=== PATIENT | female | born 1960 | race Caucasian/White ===

== ENCOUNTER 2020-01-12 13:58 | Inpatient (IN) | payer SELFPAY ==
[2020-01-12 14:25] VITALS: O2SAT 98; BMI 25.9
--- NOTE | 2020-01-12 14:39 | ECG_ITS ---
Measurements Intervals [place] Rate: 108 P: 22 CA: 123 QRS: -15 QRSD: 85 T: 49 QT: 336 QTc: 452 SINUS TACHYCARDIA VOLTAGE CRITERIA FOR LVH [MEETS CRITERIA IN ONE OF: R(aVL), S(V1), R(V5), R(V5/V6) POSSIBLE ANTERIOR MYOCARDIAL INFARCTION [30 ms Q WAVE IN V3/V4, OR R < 0.2 mV IN V4], PROBABLY OLD No previous ECG available for comparison Electronically Signed On 01-12-2020 20:50:54 CDT by Sean Anaya M.D. [id number] carmona
[2020-01-12 15:09] LABS: Basophils % 0.5 %; Eosinophils # 0.1 10^3/uL (0.0-0.8); Eosinophils % 1.4 %; Hematocrit 28.4 % (37.0-47.0); Hemoglobin 9.1 g/dL (11.5-15.3); Lymphocytes # 1.6 10^3/uL (0.8-4.8); Mean Corpuscular Hemoglobin 26.6 pg (28.0-34.0); Mean Platelet Volume 10.6 fL (7.4-10.4); Monocytes # 0.4 10^3/uL (0.2-0.9); Monocytes % 5.6 %; Neutrophils # 4.4 10^3/uL (1.8-7.7); Nucleated Red Blood Cells % 0 %; Platelet Count 329 10^3/cmm (130-400); Red Blood Count 3.42 10^6/uL (4.1-5.3); Red Cell Distribution Width 12.2 % (12.1-15.1); White Blood Count 6.5 10^3/uL (4.0-10.0)
[2020-01-12 15:32] LABS: Alanine Aminotransferase 21 U/L (0-33); Albumin Level 4.5 g/dL (3.5-5.2); Alkaline Phosphatase 82 IU/L (35-105); Anion Gap 23.9 (5-19); Aspartate Amino Transferase 21 U/L (0-32); Blood Urea Nitrogen 71 mg/dL (8-23); Calcium 9.5 mg/dL (8.5-10.5); Carbon Dioxide 22 mmol/L (22-29); Chloride 94 mmol/L (98-107); Globulin 3.4 g/dL (1.3-4.6); Glomerular Filtration Rate 4.9 mL/min (90-130); Glucose 255 mg/dL (65-115); Osmolality Calculated 290 mOsm/kg (285-295); Potassium 3.9 mmol/L (3.5-5.1); Sodium 136 mmol/L (136-145); Total Bilirubin 0.2 mg/dL (0.15-1.2); Total Protein 7.9 g/dL (6.6-8.7)
[2020-01-12 15:33] LABS: Troponin(5th) Baseline 18 ng/mL (0-10)
--- NOTE | 2020-01-12 15:42 | ED_ITS ---
Entered by Chyna Ballard, acting as scribe for Christina Shaw Angélica Jan 12, 2020 13:58 HPI - General Adult General: Chief complaint: General Medical Stated complaint: sent by rehan hopson Time Seen by Provider: 01/12/20 15:40 Source: patient Mode of arrival: ambulatory Limitations: no limitations History of Present Illness: HPI narrative: 59 yo Female presents to ED with complaint of abnormal labs. Pt states that she went to see Dr. Her this morning and had labs drawn. Pt states that Dr. Her called her and told her to come in to the ED because her labs were off. Pt states that she has had dizziness recently and had multiple falls. Pt states that she takes Metformin and is a borderline diabetic. Pt states that she is not urinating as much as she normally for a few weeks. Pt states that she has been having CVA tenderness. MD complaint: Abnormal Labs Onset (ago): hour(s) Relieving factors: none Exacerbating factors: none Associated symptoms: Reports other (cva tenderness and decreased urine output); Deny chest pain, confusion, diaphoresis, dyspnea, headache(s), malaise, nausea, rash, palpitations, syncope or vomiting Treatments prior to arrival: none Review of Systems General: Reports: other (negative unless marked) Const: Denies: fever, chills, body aches, fatigue, malaise or diaphoresis Eyes: Denies: change in vision or blurry vision ENMT: Denies: throat pain, painful swallowing, hoarseness, ear pain, ear discharge, Change in hearing or nasal discharge Card: Denies: chest pain, palpitations, irregular heart rhythm, syncope, pre- syncope, shortness of breath on exertion or shortness of breath when lying down Resp: Denies: shortness of breath, productive cough, non-productive cough, wheezing, coughing up blood or chest congestion GI: Denies: abdominal pain, nausea, vomiting, vomiting blood, coffee grounds in vomit, diarrhea, constipation, cramping, blood in stool or black tarry stool : Reports: flank pain and decreased urine ouput; Denies: painful urination, urinary frequency, urinary urgency, urinary inconti nence or blood in urine Musc: Denies: neck pain, back pain, extremity pain, extremity swelling, joint pain, joint swelling, joint warmth or joint stiffness Skin/Breast: Denies: rash, skin tenderness or yellow skin Neuro: Denies: headache, numbness in extremities, weakness in extremities, changes in sensation, lack of coordination, difficulty walking, dizziness, vertigo or confusion Endo: Denies: excessive thirst, tired all the time, cold intolerance, excessive sweating, flushing or hot flashes [place]/Lymph: Denies: easy bruising, easy bleeding, petechiae or enlarged lymph nodes All/Imm: Denies: hives, throat swelling, tongue swelling, facial swelling or acute wheezing PFSH ED PFSH: Medical History Depression Diabetes Diabetic neuropathy HTN (hypertension) Nephrolithiasis Surgical History H/O lithotripsy Family History Mother Leukemia Father CAD (coronary artery disease) Kidney stones Chronic kidney disease (CKD) Social History Smoking and tobacco status: never smoked Alcohol intake: never Substance/Drug Use: never Lives independently: Yes Household members: significant other Marital status: / Current occupational status: retired Physical Exam Const: COMMON NORMALS: no apparent distress, oriented x3, no limitations, healthy appearing and well nourished EXAM LIMITATIONS: no altered mental status GENERAL APPEARANCE: cooperative, well kempt and well developed ORIENTATION/CONSCIOUSNESS: Yes awake HENMT: COMMON NORMALS: normocephalic, head/scalp atraumatic, hearing grossly normal bilaterally, external ears normal, EAC's normal, external nose normal and moist oral mucous membranes HEAD & SCALP: normal to inspection, normocephalic and atraumatic FACE & SINUS: normal facial exam and face symmetric NOSE: external nose normal and nares normal EXTERNAL EAR: Yes external ears normal EXTERNAL AUDITORY CANAL: EAC's normal MOUTH: oral and palatal mucosa normal and tongue normal Eye: COMMON NORMALS: PERRL, EOMs intact bilaterally, conjunctivae normal and n o scleral icterus GENERAL EYE: normal appearance of both eyes and normal light reflex CONJUNCTIVA: Yes conjunctivae normal SCLERA: sclerae normal CORNEA: Yes corneas normal PUPIL: Yes PERRL DIRECT OPHTHALMOSCOPY: Yes normal light reflex Neck/C-Spine: COMMON NORMALS: full ROM, no lymphadenopathy, supple, no meningeal signs and no JVD GENERAL: Yes normal visual inspection and Yes trachea midline CERVICAL SPINE: Yes cervical ROM normal Chest: COMMONS NORMALS: inspection of chest normal and palpation of chest normal Resp: COMMON NORMALS: normal respiratory effort, no retractions, no use of accessory muscles and clear to auscultation bilaterally EFFORT & INSPECTION: Yes able to speak in complete sentences AUSCULTATION: clear to auscultation bilaterally Cardio: COMMON NORMALS: no JVD, regular rate, regular rhythm, S1 normal heart sound, S2 normal heart sound, no gallops, no clicks, no murmurs and no rub JUGULAR VENOUS DISTENTION: no JVD RATE: regular rate RHYTHM: regular rhythm HEART SOUNDS: S1 normal and S2 normal GI: COMMON NORMALS: soft to palpation, non-tender, no hepatosplenomegaly and no masses INSPECTION: Yes normal to inspection PALPATION: Yes soft and Yes no hepatosplenomegaly : COMMON NORMALS: Yes no CVA tenderness BLADDER/KIDNEY EXAM: Yes no CVA tenderness Back/Pelvis: COMMON NORMALS: no CVA tenderness, thoracic and lumbar spine normal to inspection, no thoracic nor lumbar tenderness and thoraco-lumbar ROM normal Extremity: COMMON NORMALS: normal to inspection, full ROM, normal capillary refill, no joint enlargement, no clubbing, cyanosis or edema and no calf tend erness Neuro: COMMON NORMALS: oriented x3, CN's II-XII intact bilaterally, moves all extremities, no focal motor deficits and no sensory deficits noted MENINGEAL SIGNS: Yes no meningeal signs Psych: COMMON NORMALS: mental status grossly normal, thought process normal, cooperative, affect normal, speech normal and activity/motor behavior normal APPEARANCE: Yes well kempt SPEECH: Yes normal speech THOUGHT PROCESS: normal thought process Skin: COMMON NORMALS: no rashes or lesions noted, skin turgor normal, no jaundice, no petechiae and no mottling GENERAL SKIN EXAM: no rashes or lesions noted and turgor normal Course Consultations: Consultation #1: Dr. Evans, Tele-Electronic Pagination System Operator. Message left at 17:00. Dr. Evans called back at 17:06. Time: 17:00 Vital Signs: Vital signs: Vital Signs Pulse Rate 90 01/12/20 19:24 Respiratory Rate 18 01/12/20 19:24 Blood Pressure 125/88 01/12/20 19:24 Pulse Oximetry 98 01/12/20 19:24 MDM - General Adult MDM Narrative: Medical decision making narrative: The case was reviewed with Dr. Tucker, he agrees to admit. We will consult tele-nephrology. Catheter was placed and the patient only 2 cc of urine was obtained. Patient is hemodynamically stable without shortness of breath or edema in her chest. Further care be dictated by Dr. Velez and the hospitalist service as well as the tele-nephrology service. We will place the consult here. Lab Data: Attestation: I reviewed the patient's lab results. Labs: Lab Results 01/12/20 01/12/20 01/12/20 Range/Units 14:56 14:56 14:56 WBC 6.5 (4.0-10.0) 10^3/ uL RBC 3.42 L (4.1-5.3) 10^6/u L Hgb 9.1 L (11.5-15.3) g/dL Hct 28.4 L (37.0-47.0) % MCV 83.0 (81-99) fL MCH 26.6 L (28.0-34.0) pg MCHC 32.0 (30.0-36.0) g/dL RDW 12.2 (12.1-15.1) % Plt Count 329 (130-400) 10^3/c mm MPV 10.6 H (7.4-10.4) fL Neut % (Auto) 68.0 % Lymph % (Auto) 24.0 % [place] % (Auto) 5.6 % Eos % (Auto) 1.4 % Baso % (Auto) 0.5 % Neut # (Auto) 4.4 (1.8-7.7) 10^3/u L Lymph # (Auto) 1.6 (0.8-4.8) 10^3/u L [place] # (Auto) 0.4 (0.2-0.9) 10^3/u L Eos # (Auto) 0.1 (0.0-0.8) 10^3/u L Baso # (Auto) 0.0 (0.0-0.1) 10^3/u L Nucleated RBC % (a uto) 0 % Nucleated RBCs # 0.0 /100WBC Sodium 136 (136-145) mmol/L Potassium 3.9 (3.5-5.1) mmol/L Chloride 94 L (98-107) mmol/L Carbon Dioxide 22 (22-29) mmol/L Anion Gap 23.9 H (5-19) BUN 71 H (8-23) mg/dL Creatinine 8.3 H* (0.5-0.9) mg/dL GFR Calculation 4.9 L (90-130) mL/min Glucose 255 H (65-115) mg/dL Calculated Osmolal ity 290 (285-295) mOsm/k g Calcium 9.5 (8.5-10.5) mg/dL Total Bilirubin 0.2 (0.15-1.2) mg/dL AST 21 (0-32) U/L ALT 21 (0-33) U/L Alkaline Phosphata se 82 (35-105) IU/L Troponin T Baselin e 18 H (0-10) ng/mL Total Protein 7.9 (6.6-8.7) g/dL Albumin 4.5 (3.5-5.2) g/dL Globulin 3.4 (1.3-4.6) g/dL Hep Bs Antigen (Nonreactive) Hepatitis C Antibo dy (Nonreactive) 01/12/20 01/12/20 Range/Units 14:56 14:56 WBC (4.0-10.0) 10^3/ uL RBC (4.1-5.3) 10^6/u L Hgb (11.5-15.3) g/dL Hct (37.0-47.0) % MCV (81-99) fL MCH (28.0-34.0) pg MCHC (30.0-36.0) g/dL RDW (12.1-15.1) % Plt Count (130-400) 10^3/c mm MPV (7.4-10.4) fL Neut % (Auto) % Lymph % (Auto) % [place] % (Auto) % Eos % (Auto) % Baso % (Auto) % Neut # (Auto) (1.8-7.7) 10^3/u L Lymph # (Auto) (0.8-4.8) 10^3/u L [place] # (Auto) (0.2-0.9) 10^3/u L Eos # (Auto) (0.0-0.8) 10^3/u L Baso # (Auto) (0.0-0.1) 10^3/u L Nucleated RBC % (a uto) % Nucleated RBCs # /100WBC Sodium (136-145) mmol/L Potassium (3.5-5.1) mmol/L Chloride (98-107) mmol/L Carbon Dioxide (22-29) mmol/L Anion Gap (5-19) BUN (8-23) mg/dL Creatinine (0.5-0.9) mg/dL GFR Calculation (90-130) mL/min Glucose (65-115) mg/dL Calculated Osmolal ity (285-295) mOsm/k g Calcium (8.5-10.5) mg/dL Total Bilirubin (0.15-1.2) mg/dL AST (0-32) U/L ALT (0-33) U/L Alkaline Phosphata se (35-105) IU/L Troponin T Baselin e (0-10) ng/mL Total Protein (6.6-8.7) g/dL Albumin (3.5-5.2) g/dL Globulin (1.3-4.6) g/dL Hep Bs Antigen Non-reactive (Nonreactive) Hepatitis C Antibo dy Non-reactive (Nonreactive) Imaging Data^: CXR: Radiologist's impression: [address] [address] XRay Report Signed Patient: Jerry Gottlieb #: [id number] : 9Acct#:[id number] Age/Sex: 59 / FADM Date: 01/12/20 Loc: ERRoom/Bed: Attending Dr: Ordering Provider/Ordering MD: Christina Shaw DO Date of Service: 01/12/20 Procedure(s): XR chest 1V portable [id number] Accession Number(s): [id number] Report Number: [id number] PROCEDURE INFORMATION: Exam: XR Chest, 1 View Exam date and time: 01/12/2020 4:15 PM Age: 59 years old Clinical indication: Cough TECHNIQUE: Imaging protocol: XR of the chest Views: 1 view. COMPARISON: No relevant prior studies available. FINDINGS: Lungs: Unremarkable. No consolidation. Pleural space: Unremarkable. No pleural effusion. No pneumothorax. Heart/Mediastinum: Unremarkable. No cardiomegaly. Bones/joints: No acute abnormality. Mild degenerative changes in the spine and mild dextroscoliosis are noted. XR/XR chest 1V portable [id number] IMPRESSION: No acute findings. Dictated By:Ansley Snow Signed By:Rayna SnowanSigned Date/Time:01/12/20 1632 DD/ 1631 US Renal: Radiologist's impression: [address] [address] Ultrasound Report Signed Patient: Jerry Gottlieb #: [id number] : [facility]#:[id number] Age/Sex: 59 / FADM Date: 01/12/20 Loc: [facility]/Bed: Attending Dr: Ordering Provider/Ordering MD: Christina Shaw DO Date of Service: 01/12/20 Procedure(s): US renal BI with bladder Accession Number(s): [id number] Report Number: [id number] WS: [id number] RENAL ULTRASOUND HISTORY: RENAL FAILURE COMPARISON: None available. TECHNIQUE: 2-D and color Doppler imaging of the kidney submitted. Right kidney: 11.2 cm x 6.1 cm x 7.0 cm. Normal echogenicity with no hydronephrosis or mass. Left kidney: 10.2 cm x 5.4 cm x 6.2 cm. Normal echogenicity with no hydronephrosis or mass. Aorta: Normal. Urinary Bladder: Normal distention. US/US renal BI with bladder IMPRESSION: Normal renal ultrasound. Dictated By:Roro Piedra DO Signed By:Roro Piedra DOSigned Date/Time:01/12/20 1625 DD/ 1624 Discharge Plan Discharge Patient Disposition: Admitted As Inpatient Admit Provider: Halytskyy,Bc Clinical Impression: Acute renal failure Qualifiers: Acute renal failure type: unspecified Qualified Code(s): N17.9 - Acute kidney failure, unspecified Condition: Stable Referrals: April Her MD [Family Provider] - Discharge Date/Time: 01/12/20 19:26 Coding Level of Care Code ED Clerical Assigner for Chg Fwd Exam Comprehensive The documentation recorded by the Elio plummer Carmen, accurately reflects the service I personally performed and the decisions made by Colin sal Eli N Jan 12, 2020 13:58
--- NOTE | 2020-01-12 15:49 | US_ITS ---
WS: [id number] RENAL ULTRASOUND HISTORY: RENAL FAILURE COMPARISON: None available. TECHNIQUE: 2-D and color Doppler imaging of the kidney submitted. Right kidney: 11.2 cm x 6.1 cm x 7.0 cm. Normal echogenicity with no hydronephrosis or mass. Left kidney: 10.2 cm x 5.4 cm x 6.2 cm. Normal echogenicity with no hydronephrosis or mass. Aorta: Normal. Urinary Bladder: Normal distention. US/US renal BI with bladder IMPRESSION: Normal renal ultrasound.
--- NOTE | 2020-01-12 16:39 | ECG_ITS ---
Measurements Intervals [place] Rate: 94 P: 28 TN: 125 QRS: -14 QRSD: 84 T: 26 QT: 355 QTc: 446 SINUS RHYTHM VOLTAGE CRITERIA FOR LVH [MEETS CRITERIA IN ONE OF: R(aVL), S(V1), R(V5), R(V (V5/V6)+S(V1)] No previous ECG available for comparison Electronically Signed On 01-12-2020 20:54:05 CDT by Sean Anaya M.D. [id number] f
[2020-01-12] MEDS: sodium chloride 0.9% 1,000 ML 100 ML IV ×2 (16:55→23:10)
--- NOTE | 2020-01-12 17:27 | P.CONIM_ITS ---
Providers/Reason For Consult Consulting Physican/Specialty*: migue victoria md/ telenephrology Reason for Consult*: NATACHA and anemia History of Present Illness History of Present Illness Corinne Gottlieb is a 59 year old female who went for blood work this morning in prepararyion of a yearly physical. bloods came back and her PMD sent her [place] [facility] [place]HA. she states that she has been having projectile vomiting intermittently over last 4 weeks. she also faints at tinmes. she has a h/o kidney stones- last was 4 years ago. she has a h/o dm -on metformin, htn on lisinopril. depression on effexor and hydroxyzine. pt currently is feeling better. she states her UOP has decreased. she has multiple allergies denies significant nsaid use soc hx- no tob, no etoh, no drugs. no high risk sexual behaviors Review of Systems Narrative: weak, lethargic, lightheaded, fainting. no visual changes. no sob or cp. + poor appetite and vomiting. h/o depression. she denies suicide attempt. rest of full ROS is negative Meds/Allergies Home Medications and Allergies Home Medications Medication Instructions Recorded Confirmed Type gabapentin 300 mg PO TID 01/12/20 01/12/20 History hydroxyzine HCl 50 mg PO QID 01/12/20 01/12/20 History lisinopril 20 mg PO DAILY 01/12/20 01/12/20 History metformin 850 mg PO BID 01/12/20 01/12/20 History omeprazole 40 mg PO DAILY PRN 01/12/20 01/12/20 History venlafaxine 150 mg PO DAILY 01/12/20 01/12/20 History Allergies Allergy/AdvReac Type Severity Reaction Status Date / Time codeine Allergy ALGY-Swell Verified 01/12/20 14:35 Lip/Tongue/Throat diphenhydramine Allergy ADR-Agitate Verified 01/12/20 14:35 [From Benadryl] d Penicillins Allergy ALGY-Rash Verified 01/12/20 14:35 Sulfa (Sulfonamide Allergy ALGY-Rash Verified 01/12/20 14:35 Antibiotics) Current Medications Current Medications Generic Name Dose Route Start Last Admin Trade Name Freq PRN Reason Stop Dose Admin Sodium Chloride 1,000 mls @ 100 mls/hr 01/12/20 16:00 01/12/20 16:55 Sodium Chloride 0.9% IV 100 mls/hr .Q10H MILEY Administration PFSH Acute PFSH: Medical History (Updated 01/12/20 @ 17:02 by Christina Shaw) Depression Diabetes Diabetic neuropathy HTN (hypertension) Family History (Updated 01/12/20 @ 17:34 by Migue Victoria MD) Mother Leukemia Father CAD (coronary artery disease) Kidney stones Chronic kidney disease (CKD) Social History Smoking and tobacco status: never smoked Vitals/I&O/Wt Last Vital Signs Pulse Ox 98 01/12/20 14:25 Weight last 48 hrs Weight 60.328 kg Physical Exam Narrative: EXAM NARRATIVE: VS noted comfortable, nard heent- nc/at, eomi, anicteric neck no jvp lungs clear b/l heart reg no rub abd soft, nt, nd, +BS ext no edema skin normal mood normal A&P Additional A&P Information 59 yr old female medicine controlled DM, HTN, and depression. pt her e/ vomiting intermitently and found to have NATACHA and anemia 1. abd eval per PMD 2. NATACHA- normal renal us. normal cxr -please try to get old lab work. unsure if NATACHA or CKD -check urine studies -cont ivf -check serologues -stop SHAY-i -stop metformin -monitor in and out -check pth check serologies -no emergent need for dialysis -however, would initaitae save the vein provtocol 3. anemia eval- given renal failure- check spep and upep -check iron studies 4. htn- no shay-i 5. dm- no metformin -use insulin as needed 6. please dose all psych meds for a GFR <10 Consult Attestations Medical Necessity Statement: natacha, anemia Time Spent in Patient Care: Greater than 35 minutes (>than 50% of time spent in counselling and/or direct pt care on unit) . 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
[2020-01-12 18:05] LABS: Troponin 5 2HR 16.58 ng/mL (0-10)
--- NOTE | 2020-01-12 18:15 | P.HP_ITS ---
Providers/Chief Complaint Chief Complaint: sent by rehan hopson History of Present Illness Corinne Gottlieb is a 59 year old female with history of hypertension managed with lisinopril, prediabetes managed with metformin, neuropathic pain in her feet, was referred for evaluation in emergency department by her primary care provider's office after previsit lab work came back abnormal. On evaluation in ER creatinine is 3.3, BUN 71. Mild anemia noted with hemoglobin 9.1, normocytic. Very mild troponin elevation at 18-16.58. Potassium is normal. Chest x-ray is unremarkable. Renal ultrasound without sign of obstruction, with normal echogenicity of kidneys. She reports overall feeling unwell, sometimes getting dizzy over the past several weeks, last week on Sunday had an episode of recurrent vomiting, this also happened yesterday night. Last bowel movement was today and was normal. Today when asked for urine sample noticed that she cannot urinate. She states that overall has noticed her interval between urinating is decreased over the past several weeks. Denies significant NSAID use. Denies diarrhea. Reports vomiting felt almost like projectile vomiting . Reports history of nephrolithiasis herself with history of lithotripsy 12 years ago, without recurrence of kidney stone since then. Review of Systems Const: Reports: fatigue and malaise; Denies: fever, chills or body aches Eyes: Denies: change in vision or eye redness ENMT: Denies: throat pain, oral sores/lesions or ear pain Card: Denies: chest pain, edema, pre-syncope or shortness of breath on exertion Resp: Denies: shortness of breath, productive cough, change in phlegm color or coughing up blood GI: Reports: vomiting; Denies: abdominal pain, nausea, diarrhea, constipation, blood in stool or black tarry stool : Reports: decreased urine ouput; Denies: flank pain, urinary frequency or blood in urine Musc: Denies: back pain, joint swelling or redness Skin/Breast: Denies: rash, sores or new lesion Neuro: Denies: headache, numbness in extremities, weakness in extremities, dizziness, confusion or seizure-like activity Endo: Denies: excessive urination or excessive thirst [place]/Lymph: Denies: easy bleeding or purpura All/Imm: Denies: hives, throat swelling or tongue swelling Medications/Allergies Home Medications Medication Instructions Recorded Confirmed Last Taken Type gabapentin 300 mg PO TID 01/12/20 01/12/20 01/12/20 07:30 History hydroxyzine HCl 50 mg PO QID 01/12/20 01/12/20 Unknown History lisinopril 20 mg PO DAILY 01/12/20 01/12/20 01/12/20 History metformin 850 mg PO BID 01/12/20 01/12/20 01/12/20 History omeprazole 40 mg PO DAILY PRN 01/12/20 01/12/20 Unknown History venlafaxine 150 mg PO DAILY 01/12/20 01/12/20 01/11/20 History Allergies Allergy/AdvReac Type Severity Reaction Status Date / Time codeine Allergy ALGY-Swell Verified 01/12/20 14:35 Lip/Tongue/Throat diphenhydramine Allergy ADR-Agitate Verified 01/12/20 14:35 [From Benadryl] d Penicillins Allergy ALGY-Rash Verified 01/12/20 14:35 Sulfa (Sulfonamide Allergy ALGY-Rash Verified 01/12/20 14:35 Antibiotics) PFSH Acute PFSH: Medical History Depression Diabetes Diabetic neuropathy HTN (hypertension) Nephrolithiasis Surgical History H/O lithotripsy Family History Mother Leukemia Father CAD (coronary artery disease) Kidney stones Chronic kidney disease (CKD) Social History Smoking and tobacco status: never smoked Alcohol intake: never Substance/Drug Use: never Lives independently: Yes Household members: significant other Marital status: / Current occupational status: retired Vitals/I&O/Wt Last Vital Signs Pulse Ox 98 01/12/20 14:25 Weight last 48 hrs Weight 60.328 kg Physical Exam Const: COMMON NORMALS: no apparent distress and oriented x3 OTHER: Significant other at bedside HENMT: COMMON NORMALS: oropharynx normal Neck/C-Spine: COMMON NORMALS: no JVD Resp: COMMON NORMALS: normal respiratory effort and clear to auscultation bilaterally AUSCULTATION: clear to auscultation bilaterally Cardio: COMMON NORMALS: no JVD, regular rhythm, S1 normal heart sound, S2 normal heart sound and no murmurs RHYTHM: regular rhythm HEART SOUNDS: S1 normal and S2 normal GI: COMMON NORMALS: normal to inspection, nondistended, normoactive bowel sounds, soft to palpation and non-tender PALPATION: Yes soft Extremity: COMMON NORMALS: no joint enlargement and no pedal edema Neuro: COMMON NORMALS: oriented x3 and moves all extremities Skin: COMMON NORMALS: no rashes or lesions noted GENERAL SKIN EXAM: no rashes or lesions noted Data : 01/12/20 14:56 01/12/20 14:56 A&P Assessment and plan (1) Acute renal failure: Acute versus acute on chronic renal failure. She reports feeling unwell for over several weeks with some dizziness, fatigue, generalized weakness. Reported within the past week has had increased interval between urination. Today unable to urinate to give urine sample. No severe dehydration, although had episodes of vomiting last week Sunday and last night. No significant NSAID use. Does take lisinopril for blood pressure. Says she has borderline diabetes controlled by metformin. She is not sure when his last time her renal function was checked. Has history of nephrolithiasis with lithotripsy 12 years ago, but no recurrence recently. Etiology of renal failure unclear. Creatinine 8.3. BUN 71. At this time does not have indication for urgent hemodialysis. Fluid challenge and work-up per nephrology. Appreciate recommendations. Status: Acute Qualifiers: Acute renal failure type: unspecified Qualified Code(s): N17.9 - Acute kidney failure, unspecified Code(s): N17.9 - Acute kidney failure, unspecified (2) Vomiting: Had vomiting episode last week on Sunday, multiple times which then resolved. No diarrhea. Vomiting again last night. Last bowel movement today. Requested CT scan for evaluation, however, after arriving in CT she refused. Her abdominal examination is benign. We will monitor for now. Zofran as needed for nausea. Symptoms may be secondary to medication overdose with renal failure, while on venlafaxine, gabapentin. Status: Acute Code(s): R11.10 - Vomiting, unspecified (3) Diabetes: Check A1c. Status: Acute Code(s): E11.9 - Type 2 diabetes mellitus without complications (4) HTN (hypertension): Currently at goal. Monitor blood pressures. Status: Acute Code(s): I10 - Essential (primary) hypertension (5) Diabetic neuropathy: Hold gabapentin for now. Status: Acute Code(s): E11.40 - Type 2 diabetes mellitus with diabetic neuropathy, unspecified Additional A&P Information Normocytic anemia: Monitor hemoglobin. Denies any bleeding. Possibly ACD. Follow-up laboratory studies. Attestations Medical Necessity Statement*: Admission of over 2 midnights is going to need for assessment of management of acute kidney injury, episodes of vomiting, anemia. Coding Level of Care Code Acute Teasel Setter for [facility] Fwd Exam Comprehensive Diagnoses Acute renal failure N17.9 Acute renal failure type: unspecified Vomiting R11.10 Diabetes E11.9 HTN (hypertension) I10 Diabetic neuropathy E11.40
[2020-01-12 18:22] LABS: Troponin 5 2HR Delta -1.42 ABS# (0-10)
[2020-01-12 18:35] LABS: Complement C3 140 mg/dL (90-180)
--- NOTE | 2020-01-12 19:09 | PC.NURSE ---
patient cathed with in and out total of 3mls out
[2020-01-12 19:24] VITALS: BP 125/88; PULSE 90; RESP 18; O2SAT 98
[2020-01-12 20:33] LABS: Hepatitis C Virus Antibody Non-Reactive (Nonreactive)
[2020-01-12 20:35] LABS: Hepatitis B Surface Antigen. Non-Reactive (Nonreactive)
[2020-01-12] MEDS: sodium chloride 0.9% 1,000 ML 999 ML IV ×2 (20:38→21:44)
[2020-01-12 21:00] VITALS: BP 137/84; PULSE 91; RESP 18; TEMP 36.6; O2SAT 92
[2020-01-12] MEDS: heparin 5,000 unit/mL INJ 1 mL 5000 UNIT SUBCUT (21:45)
[2020-01-12 22:00] LABS: Estmated Average Glucose 177; Hemoglobin A1C 7.8 % (4.0-6.0)
[2020-01-12 22:02] LABS: Troponin 5 6HR 16.88 ng/mL (0-10)
[2020-01-12 22:05] LABS: Troponin 5 6HR Delta -1.12 ng/L (0-12)
[2020-01-13] VITALS: BP 129/81; PULSE 93; RESP 19; TEMP 36.5; O2SAT 97
[2020-01-13 01:39] LABS: Protein Urine Neg (Negative); Specific Gravity, Urine 1.005 (1.005-1.030); Urine Appearance Clear (CLEAR); Urine Color Yellow (Yellow); pH Urine 6 (5-7)
[2020-01-13 01:40] LABS: Add Urine Culture? No; Bilirubin Urine Neg (NEGATIVE); Blood Urine Neg (Negative); Glucose Urine UA 1+ (Normal); Ketones Urine Negative (Negative); Leukocyte Esterase Urine Negative (Negative); Nitrate Urine Negative (Negative); Urobilinogen Urine Norm (Negative)
[2020-01-13 01:57] LABS: Potassium, Radom Urine 9 mmol/L; Urine Random Chloride 63 mmol/L; Urine Random Sodium 72 mmol/L
[2020-01-13 04:00] VITALS: BP 125/72; PULSE 88; RESP 20; TEMP 36.7; O2SAT 96
[2020-01-13 06:11] LABS: Basophils % 0.6 %; Eosinophils # 0.1 10^3/uL (0.0-0.8); Hematocrit 24.2 % (37.0-47.0); Hemoglobin 7.8 g/dL (11.5-15.3); Lymphocytes # 1.6 10^3/uL (0.8-4.8); Mean Corpuscular HGB Conc 32.2 g/dL (30.0-36.0); Mean Corpuscular Hemoglobin 26.9 pg (28.0-34.0); Mean Corpuscular Volume 83.4 fL (81-99); Mean Platelet Volume 10.5 fL (7.4-10.4); Monocytes # 0.4 10^3/uL (0.2-0.9); Monocytes % 8.2 %; Neutrophils # 2.8 10^3/uL (1.8-7.7); Neutrophils % 56.8 %; Nucleated Red Blood Cells % 0 %; Platelet Count 275 10^3/cmm (130-400); Red Cell Distribution Width 12.1 % (12.1-15.1)
[2020-01-13 06:27] LABS: Alanine Aminotransferase 17 U/L (0-33); Albumin Level 3.2 g/dL (3.5-5.2); Alkaline Phosphatase 71 IU/L (35-105); Aspartate Amino Transferase 20 U/L (0-32); Blood Urea Nitrogen 51 mg/dL (8-23); Calcium 8.2 mg/dL (8.5-10.5); Carbon Dioxide 19 mmol/L (22-29); Chloride 107 mmol/L (98-107); Ferritin 92 ng/mL (15-150); Globulin 3.7 g/dL (1.3-4.6); Glomerular Filtration Rate 7.3 mL/min (90-130); Glucose 170 mg/dL (65-115); Iron 62 ug/dL (37-145); Magnesium 1.3 mg/dL (1.7-2.3); Osmolality Calculated 292 mOsm/kg (285-295); Percent Saturation 24.3 % (20-50); Phosphorus 3.6 mg/dL (2.5-4.5); Sodium 140 mmol/L (136-145); Total Bilirubin 0.2 mg/dL (0.15-1.2); Total Iron Binding Capacity 255 mcg/dl; Total Protein 6.9 g/dL (6.6-8.7); Unsaturated Iron Binding 193 ug/dL (112-347)
--- NOTE | 2020-01-13 07:01 | PM.PN ---
Subjective Subjective: Interval history: weak, headaches, lethargic. has some red color in her maria ines. some dysuria. Medications: Reviewed: Yes Medication Review Details: Current Medications Heparin Sodium (Beef Lung) (Heparin) 5,000 unit SUBCUT Q12H [facility] Last Admin: 01/12/20 21:45 Dose: 5,000 unit Documented by: Sodium Chloride (Sodium Chloride 0.9%) 1,000 mls @ 100 mls/hr IV .Q10H [facility] Last Admin: 01/12/20 16:55 Dose: 100 mls/hr Documented by: Sodium Chloride (Sodium Chloride 0.9%) 1,000 mls @ 100 mls/hr IV .Q10H [facility] Last Admin: 01/12/20 23:10 Dose: 100 mls/hr Documented by: Morphine Sulfate (Morphine) 4 mg IVP Q4H PRN PRN Reason: SEVERE PAIN Non-Formulary Medication (Hydroxyzine Hcl) 50 mg PO QID [facility] Last Admin: 01/12/20 21:45 Dose: Not Given Documented by: Ondansetron HCl (Zofran) 4 mg IVP Q6H PRN PRN Reason: NAUSEA AND VOMITING Pantoprazole Sodium (Protonix) 40 mg PO DAILY PRN PRN Reason: Heartburn Venlafaxine HCl (Effexor Xr) 150 mg PO DAILY [facility] Vitals/I&O/Wt Last Vital Signs Temp 98.0 F 01/13/20 04:00 Pulse 88 01/13/20 04:00 Resp 20 H 01/13/20 04:00 BP 125/72 01/13/20 04:00 Pulse Ox 96 01/13/20 04:00 01/12/20 01/13/20 01/13/20 22:59 06:59 14:59 Intake Total 1250 / 1250 Output Total 1999 / 1999 Balance 1250 / 1250 -2000 / -750 Weight last 48 hrs Weight 60.328 kg Physical Exam Narrative: EXAM NARRATIVE: VS noted comfortable, nard heent- nc/at, eomi, anicteric neck no jvp lungs clear b/l heart reg no rub abd soft, nt, nd, +BS ext no edema skin normal mood normal Urinary Catheter Management^: Bullard: Cath Placed During This Visit: yes Reason for Continuing Indwelling Catheter: Other Urinary Catheter Date of Insertion: 01/12/20 Urinary Catheter Time of Insertion: 19:21 Data : 01/13/20 05:59 01/13/20 05:59 A&P Additional A&P Information 59 yr old female medicine controlled DM, HTN, and depression. pt here/ vomiting intermitently and found to have NATACHA and anemia 1. abd eval per PMD 2. NATACHA- normal renal us. normal cxr -please try to get old lab work. unsure if NATACHA or CKD - urine studies appear benign- bland us -cont ivf- change to LR -check serologies -stop SHAY-i -stop metformin -monitor in and out -check pth -cr is improving -monitor uop and chemistries 3. anemia eval- given renal failure- check spep and upep -iron studies noted- is iron def. start ferrlecit -consider GI eval 4. htn- no shay-i bp well controlled 5. dm- no metformin -use insulin as needed 6. please dose all psych meds for a GFR <15 7. replace magnesium 8, met acidosis from NS ivf and from NATACHA Attestations Medical Necessity Statement*: natacha, anemia, metabolic acidosis, hypomagneseimia Time Spent in Patient Care: 16 - 35 minutes Coding Level of Care Code Acute Stone Lathe Operator for [facility]
[2020-01-13 07:43] LABS: Calcium 8.2 mg/dL (8.5-10.5)
[2020-01-13 08:00] VITALS: BP 132/70; PULSE 103; RESP 18; TEMP 36.7; O2SAT 99
[2020-01-13] MEDS: lactated ringers 1,000 ML 75 ML IV ×2 (08:02→18:42)
[2020-01-13] MEDS: venlafaxine ER (24HR) 150 mg Capsule PO (09:44)
[2020-01-13] MEDS: acetaminophen 325 mg Tablet 650 MG PO ×2 (09:44→21:45)
[2020-01-13] MEDS: heparin 5,000 unit/mL INJ 1 mL 5000 UNIT SUBCUT ×2 (09:44→21:48)
[2020-01-13 12:00] VITALS: BP 125/79; PULSE 96; RESP 20; TEMP 36.8; O2SAT 99
[2020-01-13 15:32] VITALS: BP 126/72; PULSE 90; RESP 18; TEMP 36.6; O2SAT 97
[2020-01-13 17:15] LABS: Glucose Point of Care 257 mg/dL (70-110)
[2020-01-13 19:57] VITALS: BP 160/90; PULSE 97; RESP 19; TEMP 36.9; O2SAT 97
[2020-01-13 21:56] LABS: Glucose Point of Care 226 mg/dL (70-110)
--- NOTE | 2020-01-13 22:05 | PM.PN ---
Subjective Subjective: Interval history: She is feeling about the same. Vitals/I&O/Wt Last Vital Signs Temp 98.4 F 01/13/20 19:57 Pulse 97 01/13/20 19:57 Resp 19 H 01/13/20 19:57 BP 160/90 01/13/20 19:57 Pulse Ox 97 01/13/20 19:57 01/13/20 01/13/20 01/13/20 06:59 14:59 22:59 Intake Total 2360 / 2360 800 / 3160 Output Total 1999 1350 / 1350 1250 / 2600 Balance -1999 / 750 1010 / 1010 -450 / 560 Weight last 48 hrs Weight 65.952 kg Weight 60.328 kg Physical Exam Const: COMMON NORMALS: no apparent distress and oriented x3 OTHER: Significant other at bedside HENMT: COMMON NORMALS: oropharynx normal Neck/C-Spine: COMMON NORMALS: no JVD Resp: COMMON NORMALS: normal respiratory effort and clear to auscultation bilaterally AUSCULTATION: clear to auscultation bilaterally Cardio: COMMON NORMALS: no JVD, regular rhythm, S1 normal heart sound, S2 normal heart sound and no murmurs RHYTHM: regular rhythm HEART SOUNDS: S1 normal and S2 normal GI: COMMON NORMALS: normal to inspection, nondistended, normoactive bowel sounds, soft to palpation and non-tender PALPATION: Yes soft Extremity: COMMON NORMALS: no joint enlargement and no pedal edema Neuro: COMMON NORMALS: oriented x3 and moves all extremities Skin: COMMON NORMALS: no rashes or lesions noted GENERAL SKIN EXAM: no rashes or lesions noted Urinary Catheter Management^: Bullard: Cath Placed During This Visit: yes Reason for Continuing Indwelling Catheter: Acute Urinary Retention or Obstruction Urinary Catheter Date of Insertion: 01/12/20 Urinary Catheter Time of Insertion: 19:21 Data : 01/13/20 05:59 01/13/20 05:59 A&P Assessment and plan (1) Acute renal failure: Improving. Creatinine improving, she is making urine. Acute versus acute on chronic renal failure. She reports feeling unwell for over several weeks with some dizziness, fatigue, generalized weakness. Reported within the past week has had increased interval between urination. Today unable to urinate to give urine sample. No severe dehydration, although had episodes of vomiting last week Sunday and last night. No significant NSAID use. Does take lisinopril for blood pressure. Says she has borderline diabetes controlled by metformin. She is not sure when his last time her renal function was checked. Has history of nephrolithiasis with lithotripsy 12 years ago, but no recurrence recently. Etiology of renal failure unclear. Fluid challenge and work-up per nephrology. Appreciate recommendations. Status: Acute Qualifiers: Acute renal failure type: unspecified Qualified Code(s): N17.9 - Acute kidney failure, unspecified Code(s): N17.9 - Acute kidney failure, unspecified (2) Anemia: Suspect worsening of anemia today is dilutional, with declining all cell lines. No outward bleeding. Requested for Hemoccult. Monitor hemoglobin. She reports has had several colonoscopies with finding of polyps. Last one was probably 10 years ago. Discussed with her should consider repeating colonoscopy again. May also need upper endoscopy. Discussed to avoid any NSAIDs. Status: Acute Code(s): D64.9 - Anemia, unspecified (3) Vomiting: No recurrence. Had vomiting episode last week on Sunday, multiple times which then resolved. No diarrhea. Vomiting again night before presentation. Bowel movement day of presentation. Requested CT scan for evaluation, however, after arriving in CT she refused. Her abdominal examination is benign. We will monitor for now. Zofran as needed for nausea. Symptoms may be secondary to medication overdose with renal failure, while on venlafaxine, gabapentin. Status: Acute Code(s): R11.10 - Vomiting, unspecified (4) Diabetes: Diabetes appears well controlled, A1c 7.8. Status: Acute Code(s): E11.9 - Type 2 diabetes mellitus without complications (5) HTN (hypertension): Mostly at goal. Monitor blood pressures. Status: Acute Code(s): I10 - Essential (primary) hypertension (6) Diabetic neuropathy: Hold gabapentin for now. Status: Acute Code(s): E11.40 - Type 2 diabetes mellitus with diabetic neuropathy, unspecified Attestations Medical Necessity Statement*: Continue admission for assessment of management of acute kidney injury, normocytic anemia. Coding Level of Care Code Acute Acquisition Marketing Manager for [facility] Diagnoses Acute renal failure N17.9 Acute renal failure type: unspecified Anemia D64.9 Vomiting R11.10 Diabetes E11.9 HTN (hypertension) I10 Diabetic neuropathy E11.40
[2020-01-14] VITALS (8 sets, daily range): BP systolic 119–146; BP diastolic 71–88; PULSE 81–119; RESP 16–20; TEMP 36.6–36.9; O2SAT 95–100
[2020-01-14 06:26] LABS: Basophils % 0.4 %; Eosinophils # 0.1 10^3/uL (0.0-0.8); Eosinophils % 2.8 %; Hemoglobin 8.2 g/dL (11.5-15.3); Lymphocytes # 1.8 10^3/uL (0.8-4.8); Lymphocytes % 38.5 %; Mean Corpuscular HGB Conc 31.5 g/dL (30.0-36.0); Mean Corpuscular Hemoglobin 27.8 pg (28.0-34.0); Mean Corpuscular Volume 88.1 fL (81-99); Mean Platelet Volume 10.5 fL (7.4-10.4); Monocytes # 0.4 10^3/uL (0.2-0.9); Monocytes % 7.7 %; Neutrophils # 2.4 10^3/uL (1.8-7.7); Neutrophils % 50.2 %; Nucleated Red Blood Cells % 0 %; Platelet Count 280 10^3/cmm (130-400); Red Blood Count 2.95 10^6/uL (4.1-5.3); Red Cell Distribution Width 12.2 % (12.1-15.1); White Blood Count 4.7 10^3/uL (4.0-10.0)
[2020-01-14 06:44] LABS: Alanine Aminotransferase 14 U/L (0-33); Albumin Level 3.2 g/dL (3.5-5.2); Alkaline Phosphatase 69 IU/L (35-105); Anion Gap 17.5 (5-19); Aspartate Amino Transferase 15 U/L (0-32); Blood Urea Nitrogen 30 mg/dL (8-23); Calcium 8.1 mg/dL (8.5-10.5); Carbon Dioxide 21 mmol/L (22-29); Chloride 106 mmol/L (98-107); Globulin 3.5 g/dL (1.3-4.6); Glomerular Filtration Rate 14.3 mL/min (90-130); Glucose 166 mg/dL (65-115); Magnesium 1.2 mg/dL (1.7-2.3); Osmolality Calculated 293 mOsm/kg (285-295); Phosphorus 2.7 mg/dL (2.5-4.5); Potassium 3.5 mmol/L (3.5-5.1); Sodium 141 mmol/L (136-145); Total Bilirubin 0.2 mg/dL (0.15-1.2); Total Protein 6.7 g/dL (6.6-8.7)
[2020-01-14 06:52] LABS: PROTEIN, TOTAL 6.5 g/dL (6.1-8.1)
[2020-01-14 07:00] LABS: Glucose Point of Care 161 mg/dL (70-110)
[2020-01-14] MEDS: acetaminophen 325 mg Tablet 650 MG PO (07:56)
--- NOTE | 2020-01-14 08:33 | P.PN_ITS ---
Subjective Subjective: Interval history: feels better. states she is eating. she refused her ct scan. dec nausea. no vomiting. Medications: Reviewed: Yes Medication Review Details: Current Medications Acetaminophen (Tylenol) 650 mg PO Q4H PRN PRN Reason: MILD PAIN OR INCREASE TEMP Last Admin: 01/14/20 07:56 Dose: 650 mg Documented by: Heparin Sodium (Beef Lung) (Heparin) 5,000 unit SUBCUT Q12H [facility] Last Admin: 01/13/20 21:48 Dose: 5,000 unit Documented by: Lactated Ringer's (Lactated Ringers) 1,000 mls @ 75 mls/hr IV .[id number] [facility] Last Admin: 01/13/20 18:42 Dose: 75 mls/hr Documented by: Ferric Sodium Gluconate 125 mg (/ Sodium Chloride) 110 mls @ 110 mls/hr IV Q24H [facility] Stop: 01/20/20 11:59 Last Admin: 01/13/20 10:44 Dose: 110 mls/hr Documented by: Morphine Sulfate (Morphine) 4 mg IVP Q4H PRN PRN Reason: SEVERE PAIN Non-Formulary Medication (Hydroxyzine Hcl) 50 mg PO QID [facility] Last Admin: 01/13/20 21:55 Dose: Not Given Documented by: Ondansetron HCl (Zofran) 4 mg IVP Q6H PRN PRN Reason: NAUSEA AND VOMITING Pantoprazole Sodium (Protonix) 40 mg PO DAILY PRN PRN Reason: Heartburn Venlafaxine HCl (Effexor Xr) 150 mg PO DAILY [facility] Last Admin: 01/13/20 09:44 Dose: 150 mg Documented by: Vitals/I&O/Wt Last Vital Signs Temp 98.2 F 01/14/20 08:04 Pulse 92 01/14/20 08:04 Resp 18 01/14/20 08:04 BP 146/82 01/14/20 08:04 Pulse Ox 98 01/14/20 08:04 01/13/20 01/14/20 01/14/20 22:59 06:59 14:59 Intake Total 950 / 3310 200 / 3510 Output Total 1250 / 2600 Balance -300 / 710 200 / 910 Weight last 48 hrs Weight 65.952 kg Weight 60.328 kg Physical Exam Narrative: EXAM NARRATIVE: VS noted comfortable, nard heent- nc/at, eomi, anicteric neck no jvp lungs clear b/l heart reg no rub abd soft, nt, nd, +BS ext no edema skin normal mood normal Urinary Catheter Management^: Yuen: Cath Placed During This Visit: yes Reason for Continuing Indwelling Catheter: Other Urinary Catheter Date of Insertion: 01/12/20 Urinary Catheter Time of Insertion: 19:21 Data : 01/14/20 06:12 01/14/20 06:12 A&P Additional A&P Information 59 yr old female medicine controlled DM, HTN, and depression. pt here/ vomiting intermitently and found to have NATACHA and anemia 1. abd eval per PMD- pt refused her ct scan -she has anemia and would benefit from full GI eval 2. NATACHA- normal renal us. normal cxr -please try to get old lab work. -renal fxn continues to improve - urine studies appear benign- bland us -d/c ivf and monitor -check serologies -stop SHAY-i -stop metformin -monitor in and out -check pth -monitor uop and chemistries -still has yuen- will give a trial of void 3. anemia eval- given renal failure- check spep and upep -iron studies noted- is iron def. started ferrlecit on 01/13/20 -consider GI eval 4. htn- no shay-i bp okay can use norvasc as needed 5. dm- no metformin -use insulin as needed REPLACE MAGNESIUM AND K AND MONITOR 6. please dose all psych meds for a GFR <15 7. replace magnesium 8, met acidosis from NS ivf and from NATACHA Attestations Medical Necessity Statement*: improving natacha Time Spent in Patient Care: 16 - 35 minutes Coding Level of Care Code Acute Program Attendant for [facility] Yip
[2020-01-14] MEDS: magnesium sulfate premix 2 GM/50 ML PIGGYBACK IV (09:22)
[2020-01-14] MEDS: heparin 5,000 unit/mL INJ 1 mL 5000 UNIT SUBCUT (09:22)
[2020-01-14] MEDS: venlafaxine ER (24HR) 150 mg Capsule PO (09:23)
[2020-01-14 11:21] LABS: Anti-streptolysin O <50 IU/mL (<200)
[2020-01-14 11:23] LABS: Glucose Point of Care 260 mg/dL (70-110)
--- NOTE | 2020-01-14 13:14 | ECG_ITS ---
Measurements Intervals Alfred Rate: 119 P: 22 RI: 116 QRS: -16 QRSD: 77 T: 75 QT: 324 QTc: 456 SINUS TACHYCARDIA WITH SHORT RI INTERVAL NONSPECIFIC ST & T-WAVE ABNORMALITY ABNORMAL RHYTHM ECG Compared to ECG 01/12/2020 16:57:18 Short RI interval now present T-wave abnormality now present Sinus rhythm no longer present Left ventricular hypertrophy no longer present Electronically Signed On 01-14-2020 19:34:12 CDT by Chan Salmeron M.D. [id number]
[2020-01-14] MEDS: morphine 4 mg/mL SDV 1 mL IVP (13:34)
--- NOTE | 2020-01-14 13:40 | PC.NURSE ---
Student notified this nurse that patient was complaining of chest pain. Patient assessed and EKG obtained. Dr. Montez notified.
--- NOTE | 2020-01-14 14:01 | CT_ITS ---
WS: [id number] CT CHEST, ABDOMEN, AND PELVIS TECHNIQUE: Noncontrast CT of the chest, abdomen, and pelvis with coronal and sagittal reformatted jason ges. CLINICAL INFORMATION: Severe epigastric, lower chest pain COMPARISON: None. DLP: 1140.[address] scans at [facility] use at least one of these dose optimization techniques: automat ed exposure control; mA and/or kV adjustment per patient size (includes targeted exams where dose is matched to clinical indication); or iterative reconstruction. CT CHEST: No mediastinal or hilar lymphadenopathy. Small esophageal hiatal hernia with mild thickening of the d istal esophagus. This can be seen with reflux esophagitis but is nonspecific. No focal mass. This can be followed up with endoscopy. Right breast nodular density measuring 1.8 cm in the right breast laterally and inferiorly along the axillary tail. Recommend diagnostic right mammography. Normal caliber thoracic aorta. Mild chronic em physematous changes. Subsegmental atelectasis in the left lower lobe. No acute pulmonary infiltrates. No focal pneumonia. No axillary lymphadenopathy. Cholecystectomy clips. Adrenal glands are normal. M ild thoracic curve. Mild thoracic kyphosis. CT ABDOMEN AND PELVIS: Noncontrast liver is normal. Cholecystectomy clips. Food particles in the stomach with air-fluid leve l. Mild inflammatory stranding and edema along the second portion the duodenum. Findings can be seen with duodenitis or less likely mild pancreatitis. Recommend correlation with pancreatic markers. No f ree air. Pancreatic body and tail are normal. No hydronephrosis in either kidney. Both ureters are decompressed. No obstructing ureteral calculi. P rior appendectomy. Mild sigmoid constipation. Dense retention involving the right colon. Trace free f luid in the pelvis. Disc osteophyte complex L3-L4 and L4-L5 with mild central canal stenosis. CT/CT chest abd pel wo con IMPRESSION: 1. Lungs are well aerated. No acute pulmonary infiltrates. 2. Small esophageal hiatal hernia with mild thickening at the distal esophagus and GE junction. This can be seen with esophagitis but nonspecific. This can b e followed up with endoscopy. 3. Mild thickening with slight inflammatory stranding and edema along the seco nd portion of the duodenum nonspecific but can be seen with mild duodenitis. Pa ncreatitis less likely. Recommend correlation with pancreatic markers. 4. No evidence of small or large bowel obstruction. 5. Dense constipation involving the cecum and right colon. Mild sigmoid consti pation. 6. 1.9 cm nodule along the inferior right breast at the axillary tail. Recomme nd right diagnostic mammography and ultrasound on an elective basis.
[2020-01-14 14:38] LABS: Anti-Nuclear Antibody Screen NEGATIVE (NEGATIVE)
[2020-01-14 14:56] LABS: ALBUMIN 3.6 g/dL (3.8-4.8); ALPHA 1 GLOBULIN 0.3 g/dL (0.2-0.3); ALPHA 2 GLOBULIN 0.8 g/dL (0.5-0.9); BETA 1 GLOBULIN 0.5 g/dL (0.4-0.6); BETA 2 GLOBULIN 0.5 g/dL (0.2-0.5); GAMMA GLOBULIN 0.9 g/dL (0.8-1.7)
[2020-01-14 15:04] LABS: Troponin(5th) Baseline 16 ng/mL (0-10)
[2020-01-14 15:14] LABS: Lipase 504 U/L (13-60)
[2020-01-14] MEDS: pantoprazole 40 mg SDV IVP (15:16)
[2020-01-14] MEDS: potassium chloride premix 40 MEQ/100 ML PREMIX 25 MEQ IV (17:28)
[2020-01-14] MEDS: bisacodyl 10 mg Supp PR (17:37)
[2020-01-14 17:56] LABS: Troponin 5 2HR 15.27 ng/mL (0-10)
[2020-01-14 17:57] LABS: Troponin 5 2HR Delta -0.73 ABS# (0-10)
--- NOTE | 2020-01-14 18:06 | PM.CONSULT ---
Providers/Reason For Consult Consulting Physican/Specialty*: Tres Mejia MD General surgery Reason for Consult*: Anemia and esophagitis Attending Physician: Bc Montez Primary Care Provider: April Her MD History of Present Illness History of Present Illness Corinne Gottlieb is a 59 year old female with multiple associated medical comorbidities was admitted to the hospitalist service with acute on top of chronic kidney compromise, patient responded to hydration and conservative measures and in the interim noticed that the patient have anemia without obvious source of blood loss, she was scoped before 10 years or so undergone a colonoscopy and was found to have polyps and she did undergo a CT scan of the chest, abdomen and pelvis that showed: 1. Lungs are well aerated. No acute pulmonary infiltrates. 2. Small esophageal hiatal hernia with mild thickening at the distal esophagus and GE junction. This can be seen with esophagitis but nonspecific. This can be followed up with endoscopy. 3. Mild thickening with slight inflammatory stranding and edema along the second portion of the duodenum nonspecific but can be seen with mild duodenitis. Pancreatitis less likely. Recommend correlation with pancreatic markers. 4. No evidence of small or large bowel obstruction. 5. Dense constipation involving the cecum and right colon. Mild sigmoid constipation. 6. 1.9 cm nodule along the inferior right breast at the axillary tail. Recommend right diagnostic mammography and ultrasound on an elective basis. General surgery was consulted for further evaluation and potential intervention in the form of EGD and colonoscopy because of the findings on the CT scan of the esophagitis duodenitis and her anemia presence. Review of Systems Const: Denies: fever, chills, body aches or malaise Card: Denies: chest pain Resp: Denies: shortness of breath GI: Reports: abdominal pain; Denies: nausea, vomiting, difficulty swallowing, diarrhea, constipation or blood in stool Neuro: Denies: headache Psych: Denies: anxiety or depression Meds/Allergies Home Medications and Allergies Home Medications Medication Instructions Recorded Confirmed Type gabapentin 300 mg PO TID 01/12/20 01/12/20 History hydroxyzine HCl 50 mg PO QID 01/12/20 01/12/20 History lisinopril 20 mg PO DAILY 01/12/20 01/12/20 History metformin 850 mg PO BID 01/12/20 01/12/20 History omeprazole 40 mg PO DAILY PRN 01/12/20 01/12/20 History venlafaxine 150 mg PO DAILY 01/12/20 01/12/20 History Allergies Allergy/AdvReac Type Severity Reaction Status Date / Time codeine Allergy ALGY-Swell Verified 01/14/20 18:08 Lip/Tongue/Throat diphenhydramine Allergy ADR-Agitate Verified 01/14/20 18:08 [From Benadryl] d Penicillins Allergy ALGY-Rash Verified 01/14/20 18:08 Sulfa (Sulfonamide Allergy ALGY-Rash Verified 01/14/20 18:08 Antibiotics) Current Medications Current Medications Generic Name Dose Route Start Last Admin Trade Name Freq PRN Reason Stop Dose Admin Acetaminophen 650 mg 01/13/20 08:57 01/14/20 07:56 Tylenol PO 650 mg Q4H PRN Administration MILD PAIN OR INCREASE TEMP Bisacodyl 10 mg 01/14/20 16:30 01/14/20 17:37 Bisac-Evac SD 10 mg DAILY MILEY Administration Heparin Sodium (Beef Lung) 5,000 unit 01/12/20 21:00 01/14/20 09:22 Heparin SUBCUT 5,000 unit Q12H MILEY Administration Ferric Sodium Gluconate 125 mg 110 mls @ 110 mls/hr 01/13/20 11:00 01/14/20 11:37 / Sodium Chloride IV 01/20/20 11:59 110 mls/hr Q24H MILEY Administration Magnesium Sulfate 1 gm/ Sodium 52 mls @ 104 mls/hr 01/14/20 16:00 01/14/20 15:57 Chloride IV 01/14/20 22:00 104 mls/hr BID@08,16 MILEY Administration Potassium Chloride 40 meq in 100 mls @ 25 mls/hr 01/14/20 16:14 01/14/20 17:28 K-Isaias IV 01/14/20 20:13 25 mls/hr ONCE ONE Administration Morphine Sulfate 4 mg 01/12/20 20:10 01/14/20 13:34 Morphine IVP 4 mg Q4H PRN Administration SEVERE PAIN Non-Formulary Medication 50 mg 01/12/20 21:00 01/14/20 16:14 Hydroxyzine Hcl PO Not Given QID MILEY Pantoprazole Sodium 40 mg 01/14/20 14:30 01/14/20 15:16 Protonix IVP 40 mg Q12H MILEY Administration Venlafaxine HCl 150 mg 01/13/20 09:00 01/14/20 09:23 Effexor Xr PO 150 mg DAILY MILEY Administration PFSH Acute PFSH: Medical History Depression Diabetes Diabetic neuropathy HTN (hypertension) Nephrolithiasis Surgical History H/O lithotripsy Family History Mother Leukemia Father CAD (coronary artery disease) Kidney stones Chronic kidney disease (CKD) Social History Smoking and tobacco status: never smoked Alcohol intake: never Substance/Drug Use: never Lives independently: Yes Household members: significant other Marital status: / Current occupational status: retired Vitals/I&O/Wt Last Vital Signs Temp 98.4 F 01/14/20 16:59 Pulse 91 01/14/20 16:59 Resp 16 01/14/20 16:59 BP 119/71 01/14/20 16:59 Pulse Ox 99 01/14/20 16:59 01/14/20 01/14/20 01/14/20 06:59 14:59 22:59 Intake Total 200 / 3510 1760 / 1760 Output Total 2100 / 2100 Balance 200 / 910 -340 / -340 Weight last 48 hrs Weight 144 lb Weight 145 lb 6.4 oz Physical Exam Const: COMMON NORMALS: no apparent distress and oriented x3 GENERAL APPEARANCE: cooperative ORIENTATION/CONSCIOUSNESS: Yes awake, Yes oriented to person, Yes oriented to place and Yes oriented to time HENMT: COMMON NORMALS: normocephalic HEAD & SCALP: normocephalic Eye: COMMON NORMALS: PERRL and no scleral icterus PUPIL: Yes PERRL Lymph: LYMPHATIC: no lymphadenopathy noted Chest: COMMONS NORMALS: inspection of chest normal Resp: COMMON NORMALS: normal respiratory effort and clear to auscultation bilaterally AUSCULTATION: clear to auscultation bilaterally Cardio: COMMON NORMALS: S1 normal heart sound and S2 normal heart sound; negative for no murmurs HEART SOUNDS: S1 normal and S2 normal GI: COMMON NORMALS: soft to palpation; negative for no hepatosplenomegaly INSPECTION: Yes normal to inspection PALPATION: Yes soft, No firm, Yes tender Details: LLQ, RLQ and RUQ, No guarding, No rigid, No no hepatosplenomegaly, No splenomegaly and No mass Neuro: COMMON NORMALS: oriented x3 SENSORIUM/ORIENTATION: Yes oriented to person, Yes oriented to place and Yes oriented to time Urinary Catheter Management^: Bullard: Cath Placed During This Visit: yes Reason for Continuing Indwelling Catheter: Other Urinary Catheter Date of Insertion: 01/12/20 Urinary Catheter Time of Insertion: 19:21 Data Micro: Micro: Microbiology 01/14/20 10:55 Occult Blood (FIT) - Final Stool A&P Assessment and plan (1) Anemia: Plan of care; After thorough history and physical examination and reviewing the chart and images with my personal interpretation, plan to perform a diagnostic esophagogastroduodenoscopy and diagnostic colonoscopy with possible biopsy and possible polypectomy, in the GI lab at some point giving the fact that she has an elevated lipase enzyme and there is no evidence of active bleeding as these procedures can be done later within this hospitalization or as an outpatient. Also after reviewing the CT scan images of the abdomen it is clearly that the patient is very constipated giving the stool load in her colon that she should benefit from stool softeners and potential laxatives Rationale was carefully and clearly discussed with the patient and the family. Patient elected at this point to hold off for any invasive procedures and she would prefer to defer at this point and she will let us knows if she is interested down the road. Thank you for consulting general surgery to participate taking care Status: Acute Code(s): D64.9 - Anemia, unspecified Consult Attestations Medical Necessity Statement: Medical necessity care is expected to cross 2 midnights Time Spent in Patient Care: 16 - 35 minutes (>than 50% of time spent in counselling and/or direct pt care on unit). 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
--- NOTE | 2020-01-14 20:15 | P.PN_ITS ---
Subjective Subjective: Interval history: This afternoon during my visit she is writhing in pain, crying, yelling out, although difficult to say if somewhat exaggerated, although sister at bedside is encouraging her to undergo diagnostic studies since she is in so much pain. Her sister denies remembering that she has had so much pain before, however, does state that her sister is not forthcoming with information, and that she will not tell you what is going on , although stating that she is suspected that something has been wrong for some time. It appears she has not been wanting to seek treatment. Discussed that she had declined CT scan evaluation earlier in admission. It appears financial concerns also play a role. She describes her pain as lower chest, also upper abdominal. Pain going up to her neck. She is dry heaving today. During my visit and before did not have any emesis. Her sister does note that she has been having bloody bowel movements in the past, although that the patient has been evasive about it. She has been having a number of stressors in her life including drug addiction and her daughter. Her sister denies that the patient herself uses any drugs. Vitals/I&O/Wt Last Vital Signs Temp 97.8 F 01/14/20 19:47 Pulse 84 01/14/20 19:47 Resp 17 01/14/20 19:47 BP 144/88 01/14/20 19:47 Pulse Ox 100 01/14/20 19:47 01/14/20 01/14/20 01/14/20 06:59 14:59 22:59 Intake Total 200 / 3510 1760 / 1760 Output Total 2100 / 2100 Balance 200 / 910 -340 / -340 Weight last 48 hrs Weight 65.317 kg Weight 65.952 kg Physical Exam Const: COMMON NORMALS: oriented x3 GENERAL APPEARANCE: in distress (Crying out, lying across the bed, hugging and empty been, with dry heaving. Wiping a wet rag on her face. Not making eye contact.) OTHER: Sister at bedside. HENMT: COMMON NORMALS: oropharynx normal Neck/C-Spine: COMMON NORMALS: no JVD Resp: COMMON NORMALS: normal respiratory effort and clear to auscultation bilaterally AUSCULTATION: clear to auscultation bilaterally Cardio: COMMON NORMALS: no JVD, regular rhythm, S1 normal heart sound, S2 normal heart sound and no murmurs RHYTHM: regular rhythm HEART SOUNDS: S1 normal and S2 normal GI: COMMON NORMALS: normal to inspection, nondistended, normoactive bowel sounds and soft to palpation PALPATION: Yes soft and Yes tender Details: other (Epigastric) Extremity: COMMON NORMALS: no joint enlargement and no pedal edema Neuro: COMMON NORMALS: oriented x3 and moves all extremities Skin: COMMON NORMALS: no rashes or lesions noted GENERAL SKIN EXAM: no rashes or lesions noted Urinary Catheter Management^: Bullard: Cath Placed During This Visit: yes, but has since been removed by the nurse Reason for Continuing Indwelling Catheter: Decision to DC Catheter Urinary Catheter Date of Insertion: 01/12/20 Urinary Catheter Time of Insertion: 19:21 Date Urinary Catheter Removed: 01/14/20 Time Urinary Catheter Discontinued: 10:00 Data : 01/14/20 06:12 01/14/20 06:12 Micro: Microbiology 01/14/20 10:55 Occult Blood (FIT) - Final Stool A&P Assessment and plan (1) Epigastric pain: Severe epigastric, lower chest pain today. She is crying, inconsolable in bed, dry heaving. Sisters at bedside. Tender to palpation epigastrium. Reports some changes in intensity with change in position, deep breaths. EKG with some sinus tachycardia. No suspicion of acute TN on troponin series. She is dry heaving. Liver parameters all normal. CT scan with appearance of esophagitis, duodenitis, possible mild pancreatitis, although difficult to delineate. Lipase elevated at 504. Status post cholecystectomy. No visible gallstones. Suspect lipase possibly reactive secondary to esophagitis, duodenitis. Or perhaps mild pancreatitis. Low suspicion for biliary pancreatitis with status post cholecystectomy, normal liver parameters. Recheck lipase in the morning. If recurrent episodes of pancreatitis in the future may need additional work-up with MRCP, possibly EUS. Started PPI. Appreciate surgical evaluation. For now change diet to clear liquid. Status: Acute Code(s): R10.13 - Epigastric pain (2) Acute renal failure: Improving. Acute versus acute on chronic renal failure. She reports feeling unwell for over several weeks with some dizziness, fatigue, generalized weakness. Reported within the past week has had increased interval between urination. Today unable to urinate to give urine sample. No severe dehydration, although had episodes of vomiting last week Sunday and last night. No significant NSAID use. Does take lisinopril for blood pressure. Says she has borderline diabetes controlled by metformin. She is not sure when his last time her renal function was checked. Has history of nephrolithiasis with lithotripsy 12 years ago, but no recurrence recently. Etiology of renal failure unclear. Status: Acute Qualifiers: Acute renal failure type: unspecified Qualified Code(s): N17.9 - Acute kidney failure, unspecified Code(s): N17.9 - Acute kidney failure, unspecified (3) Anemia: Appreciate surgical assessment. EGD, colonoscopy may be done if she changes her mind, during this admission, or after discharge. She reports has had several colonoscopies with finding of polyps. Last one was probably 10 years ago. Discussed with her should consider repeating colonoscopy again. May also need upper endoscopy. Discussed to avoid any NSAIDs. Status: Acute Code(s): D64.9 - Anemia, unspecified (4) Vomiting: As above. Status: Acute Code(s): R11.10 - Vomiting, unspecified (5) Diabetes: Diabetes appears well controlled, A1c 7.8. Status: Acute Code(s): E11.9 - Type 2 diabetes mellitus without complications (6) HTN (hypertension): Mostly at goal. Monitor blood pressures. Status: Acute Code(s): I10 - Essential (primary) hypertension (7) Diabetic neuropathy: Hold gabapentin for now. Status: Acute Code(s): E11.40 - Type 2 diabetes mellitus with diabetic neuropathy, unspecified Additional A&P Information Incidentally noted right breast nodule: We will need outpatient follow-up with mammography. Attestations Medical Necessity Statement*: Continue admission for assessment management of severe abdominal pain, esophagitis, duodenitis, possibly mild pancreatitis, acute versus acute on chronic kidney injury, iron deficiency anemia. 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
[2020-01-14 21:08] LABS: Troponin 5 6HR 15.71 ng/mL (0-10)
[2020-01-14 21:09] LABS: Troponin 5 6HR Delta -0.29 ng/L (0-12)
[2020-01-15] VITALS: BP 136/80; PULSE 90; RESP 15; TEMP 36.6; O2SAT 97
[2020-01-15 03:30] VITALS: BP 146/84; PULSE 90; RESP 15; TEMP 36.6; O2SAT 97
[2020-01-15 03:51] LABS: Amphetamines Screen Urine Negative (Negative); Barbiturates Screen Urine Negative (Negative); Benzodiazepines Screen Urine Negative (Negative); Cocaine Screen Urine Negative (Negative); Opiate Screen Urine Positive (Negative); PCP Screen Urine Positive (Negative); THC Screen Urine Negative (Negative)
--- NOTE | 2020-01-15 06:21 | PC.NURSE ---
Patient stated she has had 3 voids since urine collection for lab but stated that it was not very much each time.
[2020-01-15 06:24] LABS: Basophils % 0.6 %; Eosinophils # 0.1 10^3/uL (0.0-0.8); Eosinophils % 1.9 %; Hematocrit 25.8 % (37.0-47.0); Lymphocytes # 1.9 10^3/uL (0.8-4.8); Mean Corpuscular Hemoglobin 26.3 pg (28.0-34.0); Mean Corpuscular Volume 84.9 fL (81-99); Mean Platelet Volume 10.4 fL (7.4-10.4); Monocytes # 0.5 10^3/uL (0.2-0.9); Monocytes % 7.6 %; Neutrophils # 3.6 10^3/uL (1.8-7.7); Neutrophils % 58.3 %; Nucleated Red Blood Cells % 0 %; Platelet Count 322 10^3/cmm (130-400); Red Blood Count 3.04 10^6/uL (4.1-5.3); Red Cell Distribution Width 12.2 % (12.1-15.1); White Blood Count 6.2 10^3/uL (4.0-10.0)
[2020-01-15] MEDS: pantoprazole 40 mg SDV IVP (06:35)
[2020-01-15] MEDS: acetaminophen 325 mg Tablet 650 MG PO (06:41)
[2020-01-15 06:43] LABS: Alanine Aminotransferase 17 U/L (0-33); Albumin Level 3.9 g/dL (3.5-5.2); Alkaline Phosphatase 74 IU/L (35-105); Anion Gap 16.7 (5-19); Aspartate Amino Transferase 19 U/L (0-32); Blood Urea Nitrogen 23 mg/dL (8-23); Calcium 8.5 mg/dL (8.5-10.5); Carbon Dioxide 23 mmol/L (22-29); Chloride 104 mmol/L (98-107); Globulin 3.1 g/dL (1.3-4.6); Glomerular Filtration Rate 21.6 mL/min (90-130); Glucose 137 mg/dL (65-115); Magnesium 1.7 mg/dL (1.7-2.3); Osmolality Calculated 289 mOsm/kg (285-295); Phosphorus 2.1 mg/dL (2.5-4.5); Potassium 3.7 mmol/L (3.5-5.1); Sodium 140 mmol/L (136-145); Total Bilirubin 0.2 mg/dL (0.15-1.2)
[2020-01-15 06:44] LABS: Lipase 115 U/L (13-60)
[2020-01-15 07:36] VITALS: BP 152/85; PULSE 94; RESP 22; TEMP 36.4; O2SAT 99
[2020-01-15 08:33] LABS: Creatine Phosphokinase 65 U/L (26-192)
--- NOTE | 2020-01-15 10:45 | PM.PN ---
Subjective Subjective: Interval history: No new issues, pain is resolved today and she is keen to go home. Passing urine normally. No uremic Sx. Eating and drinking normally. Vitals/I&O/Wt Last Vital Signs Temp 97.6 F 01/15/20 07:36 Pulse 94 01/15/20 07:36 Resp 22 H 01/15/20 07:36 BP 152/85 01/15/20 07:36 Pulse Ox 99 01/15/20 07:36 01/14/20 01/15/20 01/15/20 22:59 06:59 14:59 Intake Total 120 / 1880 240 / 240 Output Total 50 / 2150 Balance 120 / -220 -50 / -270 240 / 240 Weight last 48 hrs Weight 65.635 kg Weight 65.317 kg Physical Exam Const: COMMON NORMALS: no apparent distress, average body habitus and oriented x3 HENMT: COMMON NORMALS: normocephalic and head/scalp atraumatic HEAD & SCALP: normocephalic and atraumatic Eye: COMMON NORMALS: PERRL and EOMs intact bilaterally PUPIL: Yes PERRL Neck/C-Spine: COMMON NORMALS: full ROM, no lymphadenopathy and no JVD Lymph: LYMPHATIC: no lymphadenopathy noted and no lymphedema noted Chest: COMMONS NORMALS: inspection of chest normal and palpation of chest normal Resp: COMMON NORMALS: normal respiratory effort and no retractions Cardio: COMMON NORMALS: no JVD, regular rate, regular rhythm, S1 normal heart sound and S2 normal heart sound RATE: regular rate RHYTHM: regular rhythm HEART SOUNDS: S1 normal and S2 normal GI: COMMON NORMALS: normal to inspection, nondistended, normoactive bowel sounds : COMMON NORMALS: Yes no CVA tenderness and Yes external appearance normal BLADDER/KIDNEY EXAM: Yes no CVA tenderness Back/Pelvis: COMMON NORMALS: no CVA tenderness Extremity: COMMON NORMALS: normal to inspection and full ROM Neuro: COMMON NORMALS: oriented x3 and CN's II-XII intact bilaterally Urinary Catheter Management^: Yuen: Cath Placed During This Visit: yes, but has since been removed by the nurse Reason for Continuing Indwelling Catheter: Decision to DC Catheter Urinary Catheter Date of Insertion: 01/12/20 Urinary Catheter Time of Insertion: 19:21 Date Urinary Catheter Removed: 01/14/20 Time Urinary Catheter Discontinued: 10:00 Data : 01/15/20 05:48 01/15/20 05:48 Micro: Microbiology 01/14/20 10:55 Occult Blood (FIT) - Final Stool A&P Additional A&P Information 1. NATACHA - likely pre-renal, now recovering well with supportive care - ivf off - yuen out - avoid the usuals 2. 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
[2020-01-15 11:05] VITALS: BP 148/79; PULSE 79; RESP 18; TEMP 36.8; O2SAT 98
--- NOTE | 2020-01-15 11:29 | US_ITS ---
WS: [id number] Gallbladder ultrasound, 01/15/2020 Clinical Data: hepatobiliary - pancreatitis, s/p cholecystectomy Comparison: None. Findings: The gallbladder is absent The common bile duct is 0.6 cm and there are no intrahepatic ductal abnorma lities. Liver shows no cysts, masses or dilated intrahepatic ducts. The liver measures 15.87 cm in greatest A P diameter. The pancreas is not obscured by overlying bowel gas, and no cyst, pseudocyst, or evidence of pancreat itis is noted. Right kidney measures 5.94 x 6.03 x 10.5 cm and no cyst, masses or hydronephrosis can be seen. The aorta and inferior vena cava show no vascular abnormalities. US/US abdomen limited [id number] Impression: 1. Absent gallbladder. 2. Negative for pancreatitis.
[2020-01-15] MEDS: venlafaxine ER (24HR) 150 mg Capsule PO (11:45)
[2020-01-15] MEDS: heparin 5,000 unit/mL INJ 1 mL 5000 UNIT SUBCUT (11:46)
--- NOTE | 2020-01-15 12:11 | PC.CHAP ---
Pastoral Care Encounter/Spiritual Assessment Type of Contact [] Declined hide dropper visit [] Patient/Family/Request visit [] Outpatient visit [] Follow-up visit [] Physician referral [] Code/Alert [x] Routine visit [] Staff referral [] Actively dying [] Patient sleeping [] Family support [] [] Out of room [] Palliative care [] [] Receiving care in room [] Pre-surgical visit [] Trauma [] Long length of stay [] ICU visit [] Other: Relational/Emotional Strength [x] Patient feels connected with others/family/visitors/staff [] Distress [] Loneliness/isolation [] Abandonment Spirituality of Patient [x] Person of Marielos [] Attends Cheondoism of their Marielos [x] Believes in Prayer [] Reads Bible or Confucianist materials [] There are Spiritual issues to be addressed Sales Training Coordinator Interventions [x] Prayer [x] Active listening [x] Non-anxious presence [x] Spiritual/emotional support [] Crisis/trauma care [x] Spiritual counseling [] Bereavement support [] Provided bereavement packet [] Provided Bible/devotional materials [] Provided toy/stuffed animal, coloring book to patient or family member [] Provided Communion [] Anointing/[place] [] Salvation [] Completed spiritual assessment [] Other: Impact on Illness or Injury [] Angry [] Fearful [] Anxious [] Often cries [] Exhaustion [] Unable to work [] Unable to attend presybeterian [] Unable to walk/stand [] Unable to read [] Unable to drive [] Unable to eat/drink [] Unable to sleep [] Unable to be with family [] Patient intubated [x] Other: n/a Summary Time spent with patient 5- minutes
[2020-01-15 13:36] LABS: SS A Ro Sjogrens Antibody <1.0 NEG AI (<1.0 NEG)
[2020-01-15 13:36] LABS: SS-B/LA IGG <1.0 NEG AI (<1.0 NEG)
[2020-01-15 15:08] VITALS: BP 136/89; PULSE 107; RESP 22; TEMP 36.8; O2SAT 94
--- NOTE | 2020-01-15 16:03 | PM.DCS ---
Discharge Providers Date of Admission: 01/12/20 16:59 Date of Discharge: January 15, 2020 Attending Provider at Admission: Bc Montez Attending Provider at Discharge: Bc Montez Primary Care Provider: April Her MD Diagnoses at Discharge Discharge Diagnosis (1) Anemia: Status: Acute (2) Esophageal thickening: Status: Acute (3) Esophagitis: Status: Acute (4) Duodenitis: Status: Acute (5) Pancreatitis: Status: Acute (6) Acute kidney injury: Status: Acute (7) Breast nodule: Status: Acute Reason for Visit Reason for Visit: Reason For Visit: sent by [facility] Course Hospital Course: Pleasant 59-year-old lady with history of DM 2, HTN, diabetic neuropathy, distant history of nephrolithiasis, depression was referred for admission by her primary care provider due to abnormal renal function, with noted acute kidney injury versus acute on chronic kidney disease, with creatinine of 8.3, BUN 71, with oliguria reported earlier in the day. She had an episode of vomiting the night before, as well as the week prior. She denies significant NSAID use. Her lisinopril was held. She received IV fluid challenge with good improvement in urine output and gradual improvement in renal function. She was assessed by nephrology, without requirement for hemodialysis. Noted to have iron deficiency anemia. Per her sister she may have had intermittent blood in her stool, although patient herself does not admit to certain things in her history. She had declined initial evaluation by CAT scan on presentation. She did report having history of PUD, as well as colonic polyps, with last colonoscopy 10-12 years ago. Discussed with her that with iron deficiency anemia weight are concerned about GI blood loss, recommending we perform evaluation by EGD and colonoscopy. She had declined. During hospitalization developed severe epigastric/lower chest pain, with dry heaving. Assessment by noncontrast chest and abdomen pelvis CT revealed thickening of distal esophagus, as well as inflammatory changes in the duodenum, suspected duodenitis, esophagitis, although discussed with her endoscopic evaluation to rule out malignancy would be important. Also noted to have elevation of lipase to 509, perhaps secondary to mild pancreatitis. She is status post cholecystectomy, right upper quadrant ultrasound did not reveal CBD dilation, sludge or other findings that may be concerning for biliary pancreatitis. She denies drinking alcohol. Her urine toxicology instantly tested positive for phencyclidine, although she denies drug use. It is not clear whether this may have been cross-reactivity from venlafaxine. CK was normal. Calcium was normal. Triglycerides are requested. She is significantly improved with PPI. She is tolerating oral diet. She is feeling well enough to return home. CT of the chest also revealed incidentally noted breast nodule, 1.9 cm in the inferior right breast at axillary tail. She does not states she had a mammography done back in August. Please follow-up with those results and if the finding was not present, may need additional evaluation by repeat mammography or ultrasonography. Discussed all these findings with her, and she verbalized understanding. Physical Exam Const: COMMON NORMALS: oriented x3 GENERAL APPEARANCE: other (She is comfortable, in good spirits.) HENMT: COMMON NORMALS: oropharynx normal Neck/C-Spine: COMMON NORMALS: no JVD Resp: COMMON NORMALS: normal respiratory effort and clear to auscultation bilaterally AUSCULTATION: clear to auscultation bilaterally Cardio: COMMON NORMALS: no JVD, regular rhythm, S1 normal heart sound, S2 normal heart sound and no murmurs RHYTHM: regular rhythm HEART SOUNDS: S1 normal and S2 normal GI: COMMON NORMALS: normal to inspection, nondistended, normoactive bowel sounds and soft to palpation PALPATION: Yes soft and Yes tender Extremity: COMMON NORMALS: no joint enlargement and no pedal edema Neuro: COMMON NORMALS: oriented x3 and moves all extremities Skin: COMMON NORMALS: no rashes or lesions noted GENERAL SKIN EXAM: no rashes or lesions noted Urinary Catheter Management^: [place]: Cath Placed During This Visit: yes, but has since been removed by the nurse Reason for Continuing Indwelling Catheter: Decision to DC Catheter Urinary Catheter Date of Insertion: 01/12/20 Urinary Catheter Time of Insertion: 19:21 Date Urinary Catheter Removed: 01/14/20 Time Urinary Catheter Discontinued: 10:00 Discharge Data Data Completed and Pending: Completed Studies During Hospitalization Category Date Time Status CT chest abd pel wo con Stat Cat Scan 01/14/20 14:01 Completed XR chest 1V ophelia ble [id number] Stat Exams 01/12/20 15:43 Completed US abdomen limite d [id number] Routine Ultrasound 01/15/20 11:29 Completed US renal BI with bladder Urgent Ultrasound 01/12/20 15:49 Completed Pending at discharge Category Date Time Status Anti-Neutrophil C utoplasmic AB Rout ine Lab 01/12/20 21:00 Received Complete Blood Co unt w/Auto AM LABS Lab 01/16/20 04:00 Ordered Lipase AM LABS Lab 01/16/20 04:00 Ordered Miscellaneous Fallon t Routine Lab 01/15/20 08:01 Ordered Urine Protein Kenzie ctrop Random Stat Lab 01/12/20 01:35 Received Labs from last 24 hours 01/15/20 01/15/20 01/15/20 05:48 05:48 05:48 WBC 6.2 RBC 3.04 L Hgb 8.0 L Hct 25.8 L MCV 84.9 MCH 26.3 L MCHC 31.0 RDW 12.2 Plt Count 322 MPV 10.4 Neut % (Auto) 58.3 Lymph % (Auto) 31.0 [place] % (Auto) 7.6 Eos % (Auto) 1.9 Baso % (Auto) 0.6 Neut # (Auto) 3.6 Lymph # (Auto) 1.9 [place] # (Auto) 0.5 Eos # (Auto) 0.1 Baso # (Auto) 0.0 Nucleated RBC % (a uto) 0 Nucleated RBCs # 0.0 Sodium 140 Potassium 3.7 Chloride 104 Carbon Dioxide 23 Anion Gap 16.7 BUN 23 Creatinine 2.3 H GFR Calculation 21.6 L Glucose 137 H Calculated Osmolal ity 289 Calcium 8.5 Phosphorus 2.1 L Magnesium 1.7 Total Bilirubin 0.2 AST 19 ALT 17 Alkaline Phosphata se 74 Creatine Kinase 65 Troponin I 6 Hour Troponin I Hi Sens Del Troponin T 120 Min [place] Delta Troponin T Total Protein 7.0 Albumin 3.9 Globulin 3.1 Lipase 115 H Urine Opiates Scre en Ur Barbiturates Sc reen Ur Phencyclidine S crn Ur Amphetamines Sc reen U Benzodiazepines Scrn Urine Cocaine Scre en U Marijuana (THC) Screen SS-A/Ro Antibody SS-B/La IgG Antibo dy 01/15/20 01/14/20 01/14/20 03:36 20:45 16:49 WBC RBC Hgb Hct MCV MCH MCHC RDW Plt Count MPV Neut % (Auto) Lymph % (Auto) [place] % (Auto) Eos % (Auto) Baso % (Auto) Neut # (Auto) Lymph # (Auto) [place] # (Auto) Eos # (Auto) Baso # (Auto) Nucleated RBC % (a uto) Nucleated RBCs # Sodium Potassium Chloride Carbon Dioxide Anion Gap BUN Creatinine GFR Calculation Glucose Calculated Osmolal ity Calcium Phosphorus Magnesium Total Bilirubin AST ALT Alkaline Phosphata se Creatine Kinase Troponin I 6 Hour 15.71 H Troponin I Hi Sens Del -0.29 L Troponin T 120 Min [place] 15.27 H Delta Troponin T -0.73 L Total Protein Albumin Globulin Lipase Urine Opiates Scre en Positive H Ur Barbiturates Sc reen Negative Ur Phencyclidine S crn Positive H Ur Amphetamines Sc reen Negative U Benzodiazepines Scrn Negative Urine Cocaine Scre en Negative U Marijuana (THC) Screen Negative SS-A/Ro Antibody SS-B/La IgG Antibo dy 01/12/20 01/12/20 21:00 18:10 WBC RBC Hgb Hct MCV MCH MCHC RDW Plt Count MPV Neut % (Auto) Lymph % (Auto) [place] % (Auto) Eos % (Auto) Baso % (Auto) Neut # (Auto) Lymph # (Auto) [place] # (Auto) Eos # (Auto) Baso # (Auto) Nucleated RBC % (a uto) Nucleated RBCs # Sodium Potassium Chloride Carbon Dioxide Anion Gap BUN Creatinine GFR Calculation Glucose Calculated Osmolal ity Calcium Phosphorus Magnesium Total Bilirubin AST ALT Alkaline Phosphata se Creatine Kinase Troponin I 6 Hour Troponin I Hi Sens Del Troponin T 120 Min [place] Troponin T Total Protein Albumin Globulin Lipase Urine Opiates Scre en Ur Barbiturates Sc reen Ur Phencyclidine S crn Ur Amphetamines Sc reen U Benzodiazepines Scrn Urine Cocaine Scre en U Marijuana (THC) Screen SS-A/Ro Antibody <1.0 neg SS-B/La IgG Antibo dy <1.0 neg Vitals: Last Vital Signs Temp 98.2 F 01/15/20 15:08 Pulse 107 H 01/15/20 15:08 Resp 22 H 01/15/20 15:08 BP 136/89 01/15/20 15:08 Pulse Ox 94 01/15/20 15:08 Discharge Plan Discharge Patient Disposition: Home, Self-Care Condition: Stable Prescriptions: New venlafaxine 37.5 mg capsule,extended release 24hr 37.5 mg PO DAILY Qty: 30 RF: 0 glipizide 5 mg tablet 2.5 mg PO DAILY Qty: 15 RF: 0 polyethylene glycol 3350 [Miralax] 17 gram/dose powder 17 gm PO BID Qty: 238 RF: 0 Continued hydroxyzine HCl 50 mg tablet 50 mg PO QID RF: 0 gabapentin 300 mg capsule 300 mg PO TID RF: 0 Changed omeprazole 20 mg Tablet,Delayed Release (Dr/Ec) 40 mg PO BID Qty: 60 RF: 0 Discontinued lisinopril 20 mg tablet 20 mg PO DAILY RF: 0 metformin 850 mg tablet 850 mg PO BID RF: 0 venlafaxine 150 mg capsule,extended release 24hr 150 mg PO DAILY RF: 0 Discharge Orders: Discharge Order (Routine); Ordered 01/15/20 Ordered By: Bc Montez Referrals: April Her MD [Primary Care Provider] - 01/22/20 10:15 am (Follow-up on esophagitis, duodenitis, thickening of distal esophagus, iron deficiency anemia, discussed EGD, colonoscopy. Follow-up on pancreatitis. Follow-up on acute kidney injury. If creatinine still elevated, please refer to nephrology.) Discharge Diet: Advance as tolerated, Cardiac and Diabetic Discharge Activity: Increase activity as tolerated Activity Restrictions/Additional Instructions: Please discuss again EGD and colonoscopy with your primary care provider to follow-up on thickening of distal esophageal wall. Please avoid any NSAIDs, like ibuprofen, naproxen, etc. due to kidney injury. Until your kidney function is stabilized your lisinopril and metformin are at this time discontinued. Venlafaxine dose is decreased. Please continue to monitor your blood glucose 3 times daily, record values. Please discuss with your primary care provider regarding reviewing recent mammography results, and if the incidental nodule we discussed (1.9 cm along the inferior right breast at the axillary tail) is not present, this may need follow-up with repeat mammography or ultrasound. Discharge Attestations Time Spent in Discharge Care*: greater than 30 min Quality Metrics Clinical Quality Measures During this hospital stay, did patient experience: None Coding Level of Care Code Acute Basin Finish Operator Tig Welder for Chg Fwd Diagnoses Anemia D64.9 Esophageal thickening K22.8 Esophagitis K20.9 Duodenitis K29.80 Pancreatitis K85.90 Acute kidney injury N17.9 Breast nodule N63.0
[2020-01-15 16:47] LABS: Triglycerides 386 mg/dL (0-150)
[2020-01-15 17:24] VITALS: BP 136/89; PULSE 107; RESP 22; TEMP 36.8; O2SAT 94
[2020-01-16 13:12] LABS: Creatinine, Random Urine 66 mg/dL (20-275); Protein, Total, Random 40 mg/dL (5-24); Protein/Creatinine Ratio 0.606 (0.021-0.161); Protein/Creatinine Ratio 606 mg/g creat (21-161)
[2020-01-17 11:21] LABS: ANCA Interp Negative (Negative)
[2020-01-19 10:08] LABS: Albumin,Urine Random 37 %; Alpha-1-Globulins Urine Random 3 %; Alpha-2-Globulins Urine Random 12 %; Beta-Globulin,Urine Random 31 %; Gamma Globulin,Urine Random 16 %
== END 2020-01-15 17:45 | disposition home or self-care (01) | DRG 682 ==
LOC: ER 17:02 → MEDSURG 18:46
PROVIDERS: Internal Medicine Nephrology; Admitting Provider Internal Medicine; Emergency Provider Emergency Medicine; Family Provider Family Medicine; PCP Family Medicine; Visit Provider Internal Medicine
DX: N17.9 Acute kidney failure, unspecified (principal); K85.90 Acute pancreatitis without necrosis or infection, unspecified; K22.8 Other specified diseases of esophagus; K20.9 Esophagitis, unspecified; K29.80 Duodenitis without bleeding; N63.0 Unspecified lump in unspecified breast; D64.9 Anemia, unspecified; F32.9 Major depressive disorder, single episode, unspecified; I10 Essential (primary) hypertension; E11.40 Type 2 diabetes mellitus with diabetic neuropathy, unspecified; Z79.84 Long term (current) use of oral hypoglycemic drugs; Z79.811 Long term (current) use of aromatase inhibitors
CPT/HCPCS: 12345; 36415; 36416; 51702; 71045; 71250; 74176; 76705; 76770; 76857; 80053; 80307; 81001; 82274; 82310; 82436; 82550; 82728; 82962; 83036; 83516; 83540; 83550; 83690; 83735; 83970; 84100; 84133; 84155; 84165; 84300; 84478; 84484; 85025; 86038; 86060; 86160; 86225; 86235; 86803; 87340; 93005; 96372; 96375; 99283; C9113; J1644; J2270; J2916; J3475; J3480; J7030; Q3014

== ENCOUNTER 2020-02-04 10:11 | Outpatient (CLI) | payer SELFPAY ==
--- NOTE | 2020-02-04 11:02 | MM_ITS ---
WS: [id number] RIGHT diagnostic DIGITAL MAMMOGRAM WITH CAD RIGHT breast ultrasound, limited HISTORY: BREAST NODULE COMPARISON: 09/04/2019, 04/06/2017 Technique: CC, MLO and ML views. Spot compression RIGHT MLO. Breast composition: There are scattered areas of fibroglandular density. Very posterior in the chest wall and pectoralis muscle is incompletely visualized high density nodule measuring 16 x 17 mm. Kinjal ins are slightly irregular and indistinct. This cannot be identified on the CC projection due to its far posterior position. Corresponds to the abnormality seen on the recent CT. RIGHT breast ultrasound, limited. Since the posterior chest wall at 9:00 is a complex cystic mass with septations. There is a small amanda unt of through transmission. This mass measures 2.0 x 0.9 cm. MM/[place] [id number] IMPRESSION: BI-RADS: 4B-Suspicious: Intermediate FOLLOW UP: Biopsy Recommended Ultrasound-guided biopsy recommended of the complex cystic mass along the poste rior RIGHT breast adjacent to the chest wall. May be complex cyst. Cystic neopl asm should also be considered.
== END 2020-02-04 10:12 | disposition home or self-care (01) ==
LOC: RADSHAW 10:12
PROVIDERS: Family Provider Family Medicine; PCP Family Medicine; Visit Provider Family Medicine
DX: N63.11 Unspecified lump in the right breast, upper outer quadrant (principal)
CPT/HCPCS: 76642; 77065

== ENCOUNTER 2020-02-18 12:04 | Outpatient (CLI) | payer SELFPAY ==
--- NOTE | 2020-02-18 12:13 | US_ITS ---
NOTE: Report was unsigned for reason: Order was edited. Original Signature date and time was: 02/24/20 @ 1536 WS: [id number] ULTRASOUND-GUIDED RIGHT BREAST BIOPSY HISTORY: RT BREAST NODULE COMPARISON: None. Procedure, risks and complications are explained to the patient. Medications are reviewed. Consent is obtained. The mass in the RIGHT breast is localized with ultrasound. Mass is very cystic today with only a few septations. There is through transmission. Aspiration attempt will be performed. Skin is cleansed with ChloraPrep and anesthetized with 1% buffered lidocaine. Under sterile conditions mass is aspirated with a 22 needle. Mass completely collapses during aspiration. There is no residual fluid or wall. Specimen is placed in a sterile container. Breast tissue marker (Bard ultrasound enhanced ribbon): None. Patient left the radiology suite with no complications. Patient is instructed to return to [facility] or call with any concerns. 1. Uncomplicated aspiration of abdominal cystic mass in the RIGHT breast at 9:00. MTDD US/[place] [id number] IMPRESSION: PATHOLOGY: Acute and chronic inflammation with evidence of fibrocystic disease. No evidence of dysplastic or neoplastic process. RECOMMENDATION: 6 month RIGHT mammogram follow-up. Ultrasound possible.
== END 2020-02-18 12:05 | disposition home or self-care (01) ==
LOC: RAD 12:10
PROVIDERS: Family Provider Family Medicine; PCP Family Medicine; Visit Provider Family Medicine
DX: N63.10 Unspecified lump in the right breast, unspecified quadrant (principal); N61.0 Mastitis without abscess
CPT/HCPCS: 19000; 19083; 76942; 88104; 88304

== ENCOUNTER 2020-08-31 10:43 | Outpatient (CLI) | payer OTHER, SELFPAY ==
--- NOTE | 2020-08-31 10:49 | MM_ITS ---
WS: [id number] DIAGNOSTIC BILATERAL DIGITAL MAMMOGRAM WITH CAD RIGHT breast ultrasound, limited HISTORY: RT BREAST NODULE COMPARISON: 02/04/2020, 09/04/2019, 04/06/2017 and 02/18/2020. TECHNIQUE: Bilateral craniocaudad, mediolateral oblique, and mediolateral views are submitted. Spot c ompression RIGHT CC and MLO. Computer aided detection utilized. Breast composition: There are scattered areas of fibroglandular density. High-density nodule against the posterior RIGHT chest wall is not definitely identified on today's examination. Cyst aspiration w as performed since the prior mammogram. There are no suspicious masses. Benign calcifications. RIGHT breast ultrasound, limited. Ultrasound is directed to the 9:00 axis 4 cm from the nipple. Against the chest wall is a slightly co mplex cyst measuring 9 x 6 x 5 mm. Significantly decreased in size since the prior study. No increase d vascularity or solid component. MM/[place] [id number] IMPRESSION: BI-RADS: 2-Benign FOLLOW UP: 1 Year Follow-up
== END 2020-08-31 10:44 | disposition home or self-care (01) ==
LOC: RADSHAW 10:47
PROVIDERS: PCP Family Medicine; Visit Provider Family Medicine
DX: N63.10 Unspecified lump in the right breast, unspecified quadrant (principal)
CPT/HCPCS: 76642; 77066

== ENCOUNTER 2022-05-06 10:07 | Emergency (ER) | payer OTHER, SELFPAY ==
[2022-05-06 10:23] VITALS: BP 121/87; PULSE 118; RESP 14; O2SAT 99
--- NOTE | 2022-05-06 11:05 | ED_ITS ---
HPI - GI Bleed General: Chief complaint: GI Bleed Stated complaint: bloody stool Time Seen by Provider: 05/06/22 11:05 History of Present Illness: Ms. Gottlieb is a 62-year-old lady who presents to the emergency department for concern over GI bleed. Onset of symptoms was approximately 5 days ago and initially she noted pressure feeling in her back which was moderate in intensity. She subsequently has had multiple episodes of blood in stool. She notes feeling of urgency to defecate however when she does try to have a bowel movement it is mostly blood. She does not note specific worsening pain before or after bowel movements. Mild generalized lower abdominal pain in the left lower quadrant. Nausea but no vomiting. Denies similar episodes in the past. Overall course of symptoms has persisted. No other specific changes in health, exacerbating, or alleviating factors iden tified. Onset (ago): day(s) Severity: mild Relieving factors: none Exacerbating factors: none Associated symptoms: Reports nausea Review of Systems General: Reports: 10 or more systems reviewed and unremarkable except in HPI and below GI: Reports: nausea PFSH ED PFSH: Medical History (Updated 05/14/22 @ 00:00 by ) Depression Diabetes Diabetic neuropathy HTN (hypertension) Nephrolithiasis Surgical History H/O lithotripsy Family History Mother Leukemia Father CAD (coronary artery disease) Kidney stones Chronic kidney disease (CKD) Social History Smoking and tobacco status: never smoked Alcohol intake: never Lives independently: Yes Household members: significant other Marital status: / Current occupational status: retired Physical Exam Const: COMMON NORMALS: alert GENERAL APPEARANCE: cooperative and well developed HENMT: COMMON NORMALS: normocephalic and atraumatic HEAD & SCALP: normocephalic and atraumatic Eye: COMMON NORMALS: conjunctivae normal CONJUNCTIVA: Yes conjunctivae normal SCLERA: sclerae normal Neck/C-Spine: COMMON NORMALS: supple GENERAL: Yes trachea midline Resp: COMMON NORMALS: normal respiratory effort and clear to auscultation bilaterally EFFORT & INSPECTION: Yes able to speak in complete sentences AUSCULTATION: clear to auscultation bilaterally Cardio: COMMON NORMALS: regular rate and regular rhythm RATE: regular rate RHYTHM: regular rhythm GI: COMMON NORMALS: Soft to palpation PALPATION: Yes Soft to palpation, Yes Tenderness to palpation present (GI), No Guarding due to palpation present (GI) and No Rigid due to palpation PERCUSSION: normal to percussion OTHER: Rectal exam performed with community resource consultant present. Only very small amount of stool appreciated in the rectal vault, area with stool guaiac card was negative however area of more lubricating jelly was guaiac positive. No sascha blood. Significant external and internal hemorrhoids. Extremity: GENERAL: Yes normal exam except as noted and No edema Neuro: COMMON NORMALS: moves all extremities SENSORIUM/ORIENTATION: Yes alert and No Orientation impaired Psych: COMMON NORMALS: mental status grossly normal and Normal thought process present THOUGHT PROCESS: Normal thought process present Course ED course: - Patient was seen and evaluated by me at bedside - Patient placed on cardiac monitors, IV access obtained - Initial evaluation notable for exam as above. Patient reports a longstanding history of baseline tachycardia. - Labs personally interpreted by me - IV fluids given - Labs notable for minimal leukocytosis. Metabolic panel with mild evidence of dehydration which should improve with IV fluids. - Imaging notable for no acute abnormality or cause of GI bleed noted on CT abdomen pelvis - Upon serial reexamination after treatment the patient was similar. Repeat hemoglobin was somewhat lower however patient had received 1 L of fluid bolus. - Based on patient history, evaluation, and testing as interpreted the most likely cause of the patient's condition is GI bleed, based on exam seems most likely hemorrhoidal in origin. - The results of ED evaluation were discussed with the patient including p ossible disposition options. I offered admission to the patient for evaluation by GI on-call and consideration of endoscopy which the patient declined in favor of outpatient management. I discussed prescriptions and/or symptomatic cares (if applicable) including appropriate and responsible use, followup plan, and return precautions. The patient verbalized understanding and felt safe for discharge. - Patient discharged in satisfactory condition. Note: Click bubbles or prepopulated lopez in note writing are used for assistance with data collection and billing and are inherently more limited than narrative and other text portions of this note. Please use narrative for additional clinic al history and defer to narrative/free test for any case of contradictory information. If information appears in only free text or click bubble it should be considered present or absent as reported. Please contact note contract technical writer for clarifications of clinical information or contradictory information. MDM is a brief summary, contradictory or erroneous seeming information should be clarified and full note should be reviewed. Vital Signs: Vital signs: Vital Signs Pulse Rate 113 H 05/06/22 18:25 Respiratory Rate 16 05/06/22 18:25 Blood Pressure 141/96 05/06/22 18:25 Pulse Oximetry 98 05/06/22 18:25 MDM - GI Bleed Medical Decision Making 62-year-old lady presenting with blood in stool associated with back pain. Patient reports baseline chronic tachycardia. Rectal exam notable for significant hemorrhoids without sascha blood. CT abdomen pelvis without obvious cause. Offered admission versus outpatient follow-up, patient comfortable with outpatient follow-up. Discharged in satisfactory condition with strict return precautions. Medical Records I reviewed the patient's medical records. Lab Data I reviewed the patient's lab results. : 05/06/22 16:44 05/06/22 12:30 Radiology Impressions Abdomen/Pelvis CT 05/06/22 11:24 IMPRESSION: No acute abnormality. Laboratory Results WBC 10.5 10^3/uL (4.0-10.0) H 05/06/22 11:37 RBC 4.02 10^6/uL (4.1-5.3) L 05/06/22 11:37 Hgb 8.8 g/dL (11.5-15.3) L 05/06/22 16:44 Hct 26.3 % (37.0-47.0) L 05/06/22 16:44 MCV 75.4 fl (81-99) L 05/06/22 11:37 MCH 24.6 pg (28.0-34.0) L 05/06/22 11:37 MCHC 32.7 g/dL (30.0-36.0) 05/06/22 11:37 RDW 13.8 % (12.1-15.1) 05/06/22 11:37 Plt Count 314 10^3/cmm (130-400) 05/06/22 11:37 MPV 11.6 fL (7.4-10.4) H 05/06/22 11:37 Neut % (Auto) 67.7 % 05/06/22 11:37 Lymph % (Auto) 23.3 % 05/06/22 11:37 [place] % (Auto) 6.5 % 05/06/22 11:37 Eos % (Auto) 0.9 % 05/06/22 11:37 Baso % (Auto) 0.6 % 05/06/22 11:37 Neut # (Auto) 7.13 10^3/uL (1.8-7.7) 05/06/22 11:37 Lymph # (Auto) 2.5 10^3/uL (0.8-4.8) 05/06/22 11:37 [place] # (Auto) 0.7 10^3/uL (0.2-0.9) 05/06/22 11:37 Eos # (Auto) 0.1 10^3/uL (0.0-0.8) 05/06/22 11:37 Baso # (Auto) 0.1 10^3/uL (0.0-0.1) 05/06/22 11:37 Nucleated RBC % (auto) 0 % 05/06/22 11:37 Nucleated RBCs # 0.0 /100WBC 05/06/22 11:37 PT 13.60 SECONDS (12.1-14.9) 05/06/22 12:58 INR 1.01 (0.8-1.2) 05/06/22 12:58 APTT 36.2 SECONDS (23.9-36.7) 05/06/22 12:58 Sodium 137 mmol/L (136-145) 05/06/22 12:30 Potassium 4.7 mmol/L (3.5-5.1) 05/06/22 12:30 Chloride 100 mmol/L (98-107) 05/06/22 12:30 Carbon Dioxide 18 mmol/L (22-29) L 05/06/22 12:30 Anion Gap 23.7 (5-19) H 05/06/22 12:30 BUN 24 mg/dL (8-23) H 05/06/22 12:30 Creatinine 1.2 mg/dL (0.5-0.9) H 05/06/22 12:30 GFR Calculation 45.4 mL/min (90-130) L 05/06/22 12:30 Glucose 104 mg/dL (65-115) 05/06/22 12:30 Calculated Osmolality 288 mOsm/kg (285-295) 05/06/22 12:30 Calcium 8.3 mg/dL (8.5-10.5) L 05/06/22 12:30 Total Bilirubin 0.2 mg/dL (0.15-1.2) 05/06/22 12:30 AST 19 U/L (0-32) 05/06/22 12:30 ALT 13 U/L (0-33) 05/06/22 12:30 Alkaline Phosphatase 75 IU/L (35-105) 05/06/22 12:30 Total Protein 6.9 g/dL (6.6-8.7) 05/06/22 12:30 Albumin 4.3 g/dL (3.5-5.2) 05/06/22 12:30 Globulin 2.6 g/dL (1.3-4.6) 05/06/22 12:30 Blood Type A Positive 05/06/22 12:30 Rho(D) Type Positive 05/06/22 12:30 Antibody Screen Negative 05/06/22 12:30 Discharge Plan Discharge Patient Disposition: Home Clinical Impression: Bleeding per rectum, Hemorrhoids Condition: Stable Prescriptions: No Action hydroxyzine HCl 50 mg tablet 50 mg PO QID 0RF gabapentin 300 mg capsule 300 mg PO TID 0RF glipizide 10 mg tablet 10 mg PO DAILY 0RF venlafaxine 150 mg capsule,extended release 24hr 150 mg PO DAILY 0RF omeprazole 40 mg capsule,delayed release(DR/EC) 40 mg PO BID 0RF atorvastatin 20 mg tablet 20 mg PO DAILY 0RF lisinopril 20 mg Tablet 20 mg PO DAILY 0RF metformin 750 mg Tablet Extended Release 24 Hr 750 mg PO BID 0RF Discharge Orders: Discharge ED (Routine); Ordered 05/06/22 Ordered By: Richar Casiano Referrals: April Her MD [Primary Care Provider] - Discharge Diet: Advance as tolerated and Clear Liquid Discharge Activity: Increase activity as tolerated Patient Instructions: Hemorrhoids (ED), Rectal Bleeding (ED), High Fiber Diet (ED) Activity Restrictions/Additional Instructions: Thank you for visiting the emergency department. You were seen and evaluated for blood per rectum. The exact cause your symptoms is unclear. This does require further evaluation as discussed which you are choosing to have the outpatient setting. Please continue your omeprazole. Additional [id number] treatments for hemorrhoids and stool bulking agents can also help. I will message case management for follow-up with Dr. Ortiz for further consideration of endoscopy. Additionally please follow-up with your primary care provider and have repeat hemoglobin drawn in the next few days. Please return to the emergency department for worsening symptoms, lightheadedness, dizziness, chest pain, shortness of breath, abdominal pain, or anything else that you are concerned about and feel needs emergency department evaluation. Coding Level of Care Code ED Dowel Inserting Machine Operator for Chg Fwd Exam Comprehensive
[2022-05-06 11:09] VITALS: BP 146/98; PULSE 116; RESP 18; O2SAT 99
--- NOTE | 2022-05-06 11:24 | CTR_ITS ---
PROCEDURE INFORMATION: Exam: CT Abdomen And Pelvis With Contrast Exam date and time: 05/06/2022 1:24 PM Age: 62 years old Clinical indication: Abdominal pain; Other: Gi bleed; Prior surgery; Surgery type: Gb, hysto, appy TECHNIQUE: Imaging protocol: Computed tomography of the abdomen and pelvis with contrast. Radiation optimization: All CT scans at this facility use at least one of these dose optimization techniques: automated exposure control; mA and/or kV adjustment per patient size (includes targeted exams where dose is matched to clinical indication); or iterative reconstruction. Contrast material: VISI 320; Contrast volume: 95 ml; Contrast route: INTRAVENOUS (IV); COMPARISON: [place] [id number] 01/14/2020 2:56 PM RADIATION DOSE METRICS: Total DLP (mGy-cm): 1318.75 FINDINGS: Liver: Normal. No mass. Gallbladder and bile ducts: Cholecystectomy. Normal bile ducts. Pancreas: Normal. No ductal dilation. Spleen: Normal. No splenomegaly. Adrenal glands: Normal. No mass. Kidneys and ureters: Normal. No hydronephrosis. Stomach and bowel: Unremarkable. No obstruction. No mucosal thickening. Appendix: Appendectomy. Intraperitoneal space: Unremarkable. No free air. No significant fluid collection. Vasculature: Unremarkable. No abdominal aortic aneurysm. Lymph nodes: Unremarkable. No enlarged lymph nodes. Urinary bladder: Unremarkable as visualized. Reproductive: Hysterectomy. Bones/joints: Chronic degenerative changes are present in the spine. Soft tissues: Unremarkable. CT/CT abdomen pelvis w con* [id number] IMPRESSION: No acute abnormality.
[2022-05-06] MEDS: sodium chloride 0.9% 1,000 ML 999 ML IV (11:44)
[2022-05-06 11:56] LABS: Basophils # 0.1 10^3/uL (0.0-0.1); Basophils % 0.6 %; Eosinophils # 0.1 10^3/uL (0.0-0.8); Eosinophils % 0.9 %; Hematocrit 30.3 % (37.0-47.0); Hemoglobin 9.9 g/dL (11.5-15.3); Lymphocytes # 2.5 10^3/uL (0.8-4.8); Lymphocytes % 23.3 %; Mean Corpuscular HGB Conc 32.7 g/dL (30.0-36.0); Mean Corpuscular Hemoglobin 24.6 pg (28.0-34.0); Mean Corpuscular Volume 75.4 fl (81-99); Mean Platelet Volume 11.6 fL (7.4-10.4); Monocytes # 0.7 10^3/uL (0.2-0.9); Monocytes % 6.5 %; Neutrophils # 7.13 10^3/uL (1.8-7.7); Neutrophils % 67.7 %; Nucleated Red Blood Cells % 0 %; Platelet Count 314 10^3/cmm (130-400); Red Blood Count 4.02 10^6/uL (4.1-5.3); Red Cell Distribution Width 13.8 % (12.1-15.1); White Blood Count 10.5 10^3/uL (4.0-10.0)
[2022-05-06 12:58] LABS: Alanine Aminotransferase 13 U/L (0-33); Albumin Level 4.3 g/dL (3.5-5.2); Alkaline Phosphatase 75 IU/L (35-105); Blood Urea Nitrogen 24 mg/dL (8-23); Calcium 8.3 mg/dL (8.5-10.5); Carbon Dioxide 18 mmol/L (22-29); Chloride 100 mmol/L (98-107); Globulin 2.6 g/dL (1.3-4.6); Glomerular Filtration Rate 45.4 mL/min (90-130); Glucose 104 mg/dL (65-115); Osmolality Calculated 288 mOsm/kg (285-295); Sodium 137 mmol/L (136-145); Total Bilirubin 0.2 mg/dL (0.15-1.2); Total Protein 6.9 g/dL (6.6-8.7)
[2022-05-06 13:00] LABS: Anion Gap 23.7 (5-19); Aspartate Amino Transferase 19 U/L (0-32); Potassium 4.7 mmol/L (3.5-5.1)
[2022-05-06 13:17] LABS: INR 1.01 (0.8-1.2)
[2022-05-06 13:18] LABS: Partial Thromboplastin Time 36.2 SECONDS (23.9-36.7)
[2022-05-06] MEDS: iodixanol 320 mg/mL 100mL Btl IV (13:27)
[2022-05-06 17:17] LABS: Hematocrit 26.3 % (37.0-47.0); Hemoglobin 8.8 g/dL (11.5-15.3)
[2022-05-06 18:25] VITALS: BP 141/96; PULSE 113; RESP 16; O2SAT 98
--- NOTE | 2022-05-09 12:33 | DCPLANNER ---
Addendum entered by Wilma Hernandez 05/29/22 14:52: Patient declined follow up appointment. Original Note: general sales manager had message to schedule a follow up appointment for patient with general surgery. general sales manager sent patients information to the front office staff at general surgery. Patients information will be printed and reviewed. Clinic will call patient with appointment information.
== END 2022-05-06 18:26 | disposition home or self-care (01) ==
PROVIDERS: Emergency Provider Emergency Medicine; PCP Family Medicine
DX: K64.8 Other hemorrhoids (principal); K64.4 Residual hemorrhoidal skin tags; K62.5 Hemorrhage of anus and rectum
CPT/HCPCS: 36415; 74177; 80053; 85014; 85018; 85025; 85610; 85730; 86850; 86900; 96360; 99284; J7030; Q9967

== ENCOUNTER 2022-10-24 07:45 | Outpatient (CLI) | payer OTHER, SELFPAY ==
--- NOTE | 2022-10-24 07:56 | MM_ITS ---
WS: [id number] VIEWS: MLO and CC views both breasts. 3D digital tomosynthesis is also included in this exam. Comparison made with prior exam of 07/10/2012, 04/06/2017, 09/04/2019, 02/04/2020, 08/31/2020.. Findings: There was no sign of mass, architectural distortion or suspicious calcification in either breast. Sta ble appearing nodular densities in both breasts.Scattered fibroglandular densities MM/[place] [id number] Impression: BI-RADS: 2-Benign FOLLOW-UP: 1 Year Follow-up This mammogram was also analyzed by the Computer Aided Detection System R2 Imag e [employer] Under[employer].
== END 2022-10-24 07:46 | disposition home or self-care (01) ==
LOC: RAD 07:46
PROVIDERS: PCP Family Medicine; Visit Provider Family Medicine
DX: Z12.31 Encounter for screening mammogram for malignant neoplasm of breast (principal)
CPT/HCPCS: 77063; 77067

== ENCOUNTER 2024-02-14 09:41 | Emergency (ER) | payer OTHER, SELFPAY ==
[2024-02-14 09:46] VITALS: BP 145/93; PULSE 120; RESP 14; TEMP 37.1; O2SAT 97; BMI 24.0
--- NOTE | 2024-02-14 10:00 | XRR_ITS ---
PROCEDURE INFORMATION: Exam: XR Right Hip Exam date and time: 02/14/2024 11:09 AM Age: 63 years old Clinical indication: Hip pain; Right hip; Additional info: Injury TECHNIQUE: Imaging protocol: Radiologic exam of the right hip. Views: 1 view hip with pelvis when performed. COMPARISON: CT abdomen pelvis w con* [id number] 05/06/2022 1:24 PM FINDINGS: Bones/joints: Benign-appearing sclerotic focus in the proximal femoral shaft also seen on 05/24/2022. Mild articular surface narrowing and spurring. . No acute fracture. Soft tissues: Unremarkable. XR/XR hip RT 2-3V wo/w pel* [id number] IMPRESSION: Mild degenerative changes.
[2024-02-14] MEDS: naproxen 500 mg Tablet PO (11:21)
[2024-02-14] MEDS: HYDROcodone-acetaminophen 5-325 mg Tablet 1 TAB PO (11:22)
[2024-02-14] MEDS: dexamethasone 10 mg/mL INJ IM (11:23)
--- NOTE | 2024-02-14 11:32 | W.ED.EXTPRO ---
HPI - Extremity Problem General: Chief complaint: Extremity Problem,Nontraumatic Stated complaint: right side hip pain Time Seen by Provider: 02/14/24 11:01 Source: patient Mode of arrival: ambulatory Limitations: no limitations History of Present Illness: 63-year-old female states she had twisted and bent over last night and then felt a pop in her right hip states has been having severe pain in that hip since then. States its much worse with movement and when she walks. She denies any bowel or bladder incontinence. States it is improved with rest Associated symptoms: Deny chest pain, fever(s) or rash Review of Systems Const: Denies: fever(s), chills, body aches or change in appetite ENMT: Denies: throat pain or dental pain Card: Denies: chest pain Resp: Denies: dyspnea GI: Denies: abdominal pain, nausea, vomiting or diarrhea Musc: Reports: extremity pain; Denies: neck pain or back pain Skin/Breast: Denies: rash Neuro: Denies: headache(s) PFSH ED PFSH: Medical History (Updated 02/14/24 @ 11:53 by Darrian Kumar MD) Nephrolithiasis Depression Diabetic neuropathy HTN (hypertension) Diabetes Surgical History H/O lithotripsy Family History Mother Leukemia Father CAD (coronary artery disease) Kidney stones Chronic kidney disease (CKD) Social History Smoking and tobacco/nicotine status: never used tobacco/nicotine Alcohol intake: never Substance/Drug Use: never Lives independently: Yes Household members: significant other Marital status: / Current occupational status: retired Physical Exam Const: COMMON NORMALS: no acute distress, patient oriented x3 and healthy appearing HENMT: COMMON NORMALS: normocephalic and atraumatic HEAD & SCALP: normocephalic and atraumatic Neck/C-Spine: COMMON NORMALS: full ROM and supple Chest: COMMONS NORMALS: normal inspection of the chest Resp: COMMON NORMALS: normal respiratory effort Cardio: COMMON NORMALS: regular rate RATE: regular rate Extremity: COMMON NORMALS: normal to inspection and full ROM NARRATIVE EXTREMITY EXAM: Some tenderness to right lower back and hip no deformity distal pulses sensation intact. Neuro: COMMON NORMALS: patient oriented x3, moves all extremities and no focal motor deficits Psych: COMMON NORMALS: mental status grossly normal, Normal thought process present and cooperative THOUGHT PROCESS: Normal thought process present Skin: COMMON NORMALS: no rashes or lesions noted and no wounds GENERAL SKIN EXAM: no rashes or lesions noted Course Vital Signs: Vital signs: Vital Signs Temperature 98.8 F 02/14/24 09:46 Pulse Rate 120 H 02/14/24 09:46 Respiratory Rate 17 02/14/24 12:07 Blood Pressure 145/93 02/14/24 09:46 Pulse Oximetry 95 02/14/24 12:07 Oxygen Delivery Me thod Room Air 02/14/24 09:46 MDM - Extremity (Nontraumatic) Medical Decision Making Patient presents here right hip pain MRI showed a gluteus tendon tear no fracture noted we will discharge her with a walker prescribe her pain meds she is follow-up with orthopedics return if worsening Medical Records I reviewed the patient's medical records. Lab Data I reviewed the patient's lab results. Radiology Impressions Hip/Pelvis X-Ray 02/14/24 10:00 IMPRESSION: Mild degenerative changes. All radiology interpretation(s) finalized by discharge Discharge Plan Discharge Patient Disposition: Home Clinical Impression: Strain of right hip Qualifiers: Encounter type: initial encounter Qualified Code(s): S76.011A - Strain of muscle, fascia and tendon of right hip, initial encounter Condition: Stable Prescriptions: New methocarbamol 750 mg tablet 750 mg PO Q6H PRN (Reason: spasms) Qty: 20 0RF ondansetron 4 mg tablet,disintegrating 4 mg PO Q6H PRN (Reason: nausea and vomiting) Qty: 14 0RF Naprosyn 500 mg tablet 500 mg PO BID PRN (Reason: pain) Qty: 20 0RF hydrocodone-acetaminophen 5-325 mg tablet 1 tab PO Q6H PRN (Reason: pain) Qty: 14 0RF No Action hydroxyzine HCl 50 mg tablet 50 mg PO QID gabapentin 300 mg capsule 300 mg PO TID nifedipine 30 mg tablet extended release 24hr 30 mg PO DAILY quetiapine 25 mg tablet 25 mg PO QPM glipizide 10 mg tablet 10 mg PO DAILY venlafaxine 150 mg capsule,extended release 24hr 150 mg PO DAILY omeprazole 40 mg capsule,delayed release(DR/EC) 40 mg PO BID metformin 750 mg Tablet Extended Release 24 Hr 750 mg PO BID Discharge Orders: Discharge ED (Routine); Ordered 02/14/24 Ordered By: Darrian Kumar Other Ambulatory Orders: DME: Robin (Order) Location: None Selected Ordered By: Darrian Kumar Referrals: April Her MD [Primary Care Provider] - Jesse Alarcon DO [Physician] - 1-3 days Discharge Diet: Advance as tolerated Discharge Activity: Resume usual activity Patient Instructions: Hip Pain (ED) Coding Level of Care Code ED Instrument Room Technician for Mari Yip
--- NOTE | 2024-02-14 11:53 | CT_ITS ---
WS: [id number] CT RIGHT HIP, NONCONTRAST. HISTORY: right hip pain Technique: All CT scans at [facility] use at least one of these dose optimization techniques: automated exposure control; mA and/or kV adjustment per patient size (includes targeted exams where dose is matched to clinical indication); or iterative reconstruction. DLP: 233.91 mGy.cm COMPARISON: 01/13/2022 and radiograph 02/14/2024 No acute fracture is identified. There is a very slight change in the trabecular pattern seen only on the coronal reformat on a couple adjacent images. Indeterminate for fracture. There is mild osteopen ia. Loss of the normal bone density due to osteopenia. No fractures are identified. No significant ac etabular rim and with osteophytosis. Sclerotic focus in the proximal RIGHT femoral diaphysis is proba justin bone infarct or osteochondroma. No change since 01/14/2020. Atherosclerotic changes within the femoral artery. There is no mass. IMPRESSION: 1. No definite acute RIGHT hip fracture identified. Slight change in trabecular pattern along the fe moral neck. Due to the amount of bone loss and history consider evaluation by MRI. Stress fracture ne eds to be excluded. 2. Osteopenia. Notified Darrian Kumar MD at 02/14/2024 12:58 PM.
[2024-02-14 12:07] VITALS: RESP 17; O2SAT 95
[2024-02-14] MEDS: morphine 4 mg/mL SDV 1 mL IM (12:07)
--- NOTE | 2024-02-14 13:00 | MR_ITS ---
WS: [id number] MRI RIGHT HIP WITHOUT CONTRAST. COMPARISON: CT 02/14/2024 Multiplanar, multisequence imaging is performed without contrast. Limited evaluation of the RIGHT hip to evaluate for acute fracture. There is no marrow edema on the c oronal STIR sequence or signal abnormality within the hip. No joint effusion. No significant narrowin g of the joint space. There is a small enchondroma or infarct in the proximal femoral diaphysis. There is edema along the superficial portion of the LEFT gluteus medius muscle and extending along th e tendon sheath. Mild increased T2 signal in the gluteus medius tendon over the greater trochanter. IMPRESSION: 1. No RIGHT hip fracture. 2. Partial insertion site tear of the gluteus medius tendon with additional edema extending througho ut the gluteus medius muscle.
--- NOTE | 2024-02-14 23:30 | DCPLANNER ---
Message sent to Ortho for follow up on RT hip pain
== END 2024-02-14 15:36 | disposition home or self-care (01) ==
PROVIDERS: Emergency Provider Emergency Medicine; PCP Family Medicine
DX: S76.011A Strain of muscle, fascia and tendon of right hip, initial encounter (principal); Z79.84 Long term (current) use of oral hypoglycemic drugs; E11.40 Type 2 diabetes mellitus with diabetic neuropathy, unspecified; I10 Essential (primary) hypertension; X50.1XXA Overexertion from prolonged static or awkward postures, initial encounter
CPT/HCPCS: 73502; 73700; 73721; 96372; 99284; J1100; J2270

== ENCOUNTER 2024-03-26 15:09 | Inpatient (IN) | payer OTHER, SELFPAY ==
[2024-03-26] VITALS (8 sets, daily range): BP systolic 102–159; BP diastolic 76–113; PULSE 110–122; RESP 18–24; TEMP 36.6–36.8; O2SAT 87–95; BMI 25.0; BMI 26.4
--- NOTE | 2024-03-26 15:13 | XR_ITS ---
WS: [id number] Portable AP upright chest, 03/26/2024 Clinical Data: sob Comparison: Portable chest, 01/12/2020 Findings: There are bilateral patchy opacities in both lower lobes which probably represent pneumonia , atelectasis and a left pleural effusion. The upper lobes are clear. The heart may be slightly enlar ged. No pneumothorax is noted. There are no nodules or masses. There are clips in the right upper george drant from a cholecystectomy. The patient's clothing obscures minimal detail. XR/XR chest 1V portable [id number] Impression: 1. Bilateral lower lobe patchy opacities which probably represent pneumonia, at electasis and a left pleural effusion. 2. Cardiomegaly.
--- NOTE | 2024-03-26 15:15 | ECG_ITS ---
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 Measurements Intervals [place] Rate: 120 P: 11 TX: 130 QRS: -32 QRSD: 122 T: 3 QT: 338 QTc: 479 Interpretive Statements SINUS TACHYCARDIA LEFT AXIS DEVIATION [QRS AXIS < -30] RIGHT BUNDLE BRANCH BLOCK [120+ ms QRS DURATION, UPRIGHT V1, 40+ ms S IN I/aVL/V4/V5/V6] Compared to ECG 01/14/2020 13:21:06 Left-axis deviation now present Right bundle-branch block now present Short TX interval no longer present T-wave abnormality no longer present Electronically Signed On 03-26-2024 18:13:02 CDT by Julio Don M.D. [email or web address]
--- NOTE | 2024-03-26 15:48 | W.ED.SOB ---
Documented by User: ANDREA Dye 03/26/24 20:04 HPI - SOB/Dyspnea General: Chief Complaint: Shortness of Breath/Dyspnea Stated Complaint: cough, sent by Taina Time Seen by Provider: 03/26/24 15:44 History of Present Illness: HPI Narrative: 63-year-old female was referred to the ER today from her primary care office, Dr. Her, for low oxygen level. Patient reports that she has had a dry cough for about 1 month. Patient was seen Dr. Her relating her diabetes and her cough today. Patient reports no fever. Patient has a history of diabetes mellitus type 2 with neuropathy. Patient denies any history of smoking, alcohol use, or drug use. Patient takes medications routinely for GERD, diabetes mellitus, and mental health disorder. Review of Systems General: Reports: 10 or more systems reviewed and unremarkable except in HPI and below Resp: Reports: dyspnea, non-productive cough and other (Hypoxia) PFSH ED PFSH: Medical History (Updated 03/26/24 @ 20:29 by Sean Borden MD) Nephrolithiasis Depression Diabetic neuropathy HTN (hypertension) Diabetes Surgical History H/O lithotripsy Family History Mother Leukemia Father CAD (coronary artery disease) Kidney stones Chronic kidney disease (CKD) Social History Smoking and tobacco/nicotine status: never used tobacco/nicotine Alcohol intake: never Substance/Drug Use: never Lives independently: Yes Household members: significant other Marital status: / Current occupational status: retired Physical Exam Const: COMMON NORMALS: alert HENMT: COMMON NORMALS: normocephalic HEAD & SCALP: normocephalic Neck/C-Spine: COMMON NORMALS: full ROM Resp: COMMON NORMALS: normal respiratory effort EFFORT & INSPECTION: Yes symmetric chest movement AUSCULTATION: diminished lung sounds Cardio: COMMON NORMALS: regular rate and regular rhythm RATE: regular rate RHYTHM: regular rhythm GI: COMMON NORMALS: non-tender Back/Pelvis: COMMON NORMALS: thoracic and lumbar spine normal to inspection Extremity: COMMON NORMALS: no pedal edema Neuro: SENSORIUM/ORIENTATION: Yes alert Psych: COMMON NORMALS: normal affect Skin: COMMON NORMALS: turgor normal GENERAL SKIN EXAM: turgor normal Course Vital Signs: Vital signs: Vital Signs Temperature 97.9 F 03/26/24 15:15 Pulse Rate 110 H 03/26/24 20:33 Respiratory Rate 18 03/26/24 20:33 Blood Pressure 128/97 03/26/24 20:33 Pulse Oximetry 92 03/26/24 20:33 Oxygen Delivery Me thod Nasal Cannula 03/26/24 20:33 Oxygen Flow Rate 6 03/26/24 20:33 MDM - SOB/Dyspnea Medical Decision Making 63-year-old female comes in today from her primary care office due to hypoxia. Patient reports cough with congestion. Patient reports increased shortness of breath. Patient reports no chest pain. Patient denies any history of COPD or cigarette smoking. Lungs are decreased in the bases bilaterally. Abdomen soft nontender. No edema is noted in the extremities. Vital signs note an elevated pulse 122, respirations 24, O2 saturation on room air 87%. Differential diagnosis includes pneumonia, CHF, PE, respiratory failure. Chest x-ray did note some bilateral lower lobe infiltrates versus effusion. 1700, CBC notes a 10.8 white count, mild anemia with hemoglobin 9.4. D-dimer was 3.6. Troponin was 20. Lactic was 2.6. Patient has already been ordered 1 g of Rocephin and 500 of azithromycin. We will add a CTA for PE protocol to rule out pulmonary embolism. Due to elevated lactate patient given 1 L of IV fluid but monitor for increasing shortness of breath. 1954, CTA did not demonstrate a pulmonary embolism and further confirmed bilateral infiltrates that may be suggestive of pneumonia versus CHF. Patient's second lactic come back elevated at 4.4. Patient was infused with 1 L of IV fluids. Discussed patient with Dr. Kumar who agreed with plan for admission. Dr. Borden was consulted and agreed to admission for bilateral pneumonia. Lab Data 03/26/24 16:12 03/26/24 16:12 Labs/Radiology: Radiology Impressions Chest X-Ray 03/26/24 15:13 Impression: 1. Bilateral lower lobe patchy opacities which probably represent pneumonia, atelectasis and a left pleural effusion. 2. Cardiomegaly. Chest CTA 03/26/24 16:59 IMPRESSION: 1. No CT findings of pulmonary embolus. 2. Mcvp-xu-hrhhsmmt posterior pleural effusions bilaterally, more prominent about the lower chest. Subjacent atelectasis within the lower lungs, with inability to exclude some component of basilar infiltrate. Lung windows demonstrate small amount of nonspecific scattered ground-glass opacity as well. Consider CHF or pneumonia. 3. Incidental finding of a partially visualized subcutaneous soft tissue mass mid to upper right neck with predominant negative Hounsfield measurements or fat density. Laboratory Results WBC 10.81 10^3/uL (3.29-11.43) 03/26/24 16:12 RBC 3.61 10^6/uL (3.85-5.65) L 03/26/24 16:12 Hgb 9.40 g/dL (11.27-16.99) L 03/26/24 16:12 Hct 29.7 % (36-47) L 03/26/24 16:12 MCV 82.3 fl (85-98) L 03/26/24 16:12 MCH 26.0 pg (27-33) L 03/26/24 16:12 MCHC 31.6 g/dL (30-55) 03/26/24 16:12 RDW 14.6 % (12.1-15.1) 03/26/24 16:12 Plt Count 423 10^3/cmm (157-399) H 03/26/24 16:12 MPV 9.7 fL (7.4-10.4) 03/26/24 16:12 Neut % (Auto) 69.2 % 03/26/24 16:12 Lymph % (Auto) 21.4 % 03/26/24 16:12 [place] % (Auto) 6.8 % 03/26/24 16:12 Eos % (Auto) 1.0 % 03/26/24 16:12 Baso % (Auto) 0.9 % 03/26/24 16:12 Neut # (Auto) 7.48 10^3/uL (1.8-7.7) 03/26/24 16:12 Lymph # (Auto) 2.3 10^3/uL (0.8-4.8) 03/26/24 16:12 [place] # (Auto) 0.7 10^3/uL (0.2-0.9) 03/26/24 16:12 Eos # (Auto) 0.1 10^3/uL (0.0-0.8) 03/26/24 16:12 Baso # (Auto) 0.1 10^3/uL (0.0-0.1) 03/26/24 16:12 Nucleated RBC % (auto) 0 % 03/26/24 16:12 Nucleated RBCs # 0.0 /100WBC 03/26/24 16:12 D-Dimer 3.64 ug/mLFEU (0-0.59) H 03/26/24 16:12 Specimen Type Arterial 03/26/24 16:55 Sample Site Radial, right 03/26/24 16:55 ABG pH 7.46 (7.35-7.45) H 03/26/24 16:55 ABG pCO2 27.3 mmHg (35-45) L 03/26/24 16:55 ABG pO2 55.4 mmHg (80.0-100.0) L 03/26/24 16:55 ABG PO2/FiO2 Ratio 0 03/26/24 16:55 ABG HCO3 19.2 mmol/L (22-26) L 03/26/24 16:55 ABG Base Excess -3.7 mmol/L (-2.0-2.0) L 03/26/24 16:55 Kip Test Pos 03/26/24 16:55 Hematocrit 33.7 % (37-47) L 03/26/24 16:55 O2 Delivery Device Nc 03/26/24 16:55 O2 Liters/Min 4.0 % 03/26/24 16:55 FiO2 36.0 % 03/26/24 16:55 Body And Fender Mechanic Apprentice ID glc 03/26/24 16:55 Sodium 133 mmol/L (136-145) L 03/26/24 16:12 Potassium 4.4 mmol/L (3.5-5.1) 03/26/24 16:12 Chloride 95 mmol/L (98-107) L 03/26/24 16:12 Carbon Dioxide 20 mmol/L (22-29) L 03/26/24 16:12 Anion Gap 22.4 (5-19) H 03/26/24 16:12 BUN 18 mg/dL (8-23) 03/26/24 16:12 Creatinine 1.1 mg/dL (0.5-0.9) H 03/26/24 16:12 GFR Calculation 50.0 mL/min (90-130) L 03/26/24 16:12 Glucose 170 mg/dL (65-115) H 03/26/24 16:12 Calculated Osmolality 282 mOsm/kg (285-295) L 03/26/24 16:12 Lactic Acid 2.6 mmol/L (0.5-2.2) H 03/26/24 16:12 Lactic Acid (Sepsis) 4.4 mmol/L (0.5-2.2) H* 03/26/24 19:12 Calcium 8.5 mg/dL (8.5-10.5) 03/26/24 16:12 Total Bilirubin 0.2 mg/dL (0.15-1.2) 03/26/24 16:12 AST 15 U/L (0-32) 03/26/24 16:12 ALT 8 U/L (0-33) 03/26/24 16:12 Alkaline Phosphatase 74 U/L (35-105) 03/26/24 16:12 Troponin T Baseline 20 ng/L (0-10) H 03/26/24 16:12 Troponin T 120 Minute 20.71 ng/L (0-10) H 03/26/24 19:12 Delta Troponin T 0.71 ABS# (0-10) 03/26/24 19:12 NT-Pro-B Natriuret Pep 3382 pg/mL (0-125) H 03/26/24 16:12 Total Protein 7.7 g/dL (6.6-8.7) 03/26/24 16:12 Albumin 4.2 g/dL (3.5-5.2) 03/26/24 16:12 Globulin 3.5 g/dL (1.3-4.6) 03/26/24 16:12 Procalcitonin 0.42 ng/mL (0-0.5) 03/26/24 19:12 Adenovirus (PCR) Not detected (NOT DETECT) 03/26/24 17:06 C. pneumoniae DNA (PCR) Not detected (NOT DETECT) 03/26/24 17:06 Coronavirus 229E (PCR) Not detected (NOT DETECT) 03/26/24 17:06 Human Metapneumovir PCR Not detected (NOT DETECT) 03/26/24 17:06 Influenza A (H1) PCR Not detected (NOT DETECT) 03/26/24 17:06 Influ A (H1/09) PCR Not detected (NOT DETECT) 03/26/24 17:06 Influenza A (H3) PCR Not detected (NOT DETECT) 03/26/24 17:06 Influenza Type A (PCR) Not detected (NOT DETECT) 03/26/24 17:06 Influenza Type B (PCR) Not detected (NOT DETECT) 03/26/24 17:06 M. pneumoniae (PCR) Not detected (NOT DETECT) 03/26/24 17:06 Parainfluenza 1 (PCR) Not detected (NOT DETECT) 03/26/24 17:06 Parainfluenza 2 (PCR) Not detected (NOT DETECT) 03/26/24 17:06 Parainfluenza 3 (PCR) Not detected (NOT DETECT) 03/26/24 17:06 Parainfluenza 4 (PCR) Not detected (NOT DETECT) 03/26/24 17:06 RSV Type A (PCR) Not detected (NOT DETECT) 03/26/24 17:06 RSV Type B (PCR) Not detected (NOT DETECT) 03/26/24 17:06 Entero/Rhino (PCR) Not detected (NOT DETECT) 03/26/24 17:06 SARS-CoV-2 (PCR) Not detected (NOT DETECT) 03/26/24 17:06 All radiology interpretation(s) finalized by discharge EKG Data EKG 1: I personally reviewed and interpreted this EKG as follows: EKG Interpretation Date: 03/26/24 EKG interpretation time: 15:30 Prior EKG tracings: not available for review Interpretation: EKG shows a sinus tachycardia with a regular rate at [address] elevation is noted. No ectopy is noted. Prior exam not available for comparison. Computer Generated Interpretation: Sinus tachycardia, left axis deviation, right bundle branch block, abnormal EKG, unconfirmed report. Discharge Plan Discharge Patient Disposition: Admitted As Inpatient Admit Provider: Sean Borden Clinical Impression: Pneumonia Condition: Stable Coding Level of Care Code ED Affirmative Action Specialist for Chg Fwd Documented by User: Darrian Kumar MD 03/26/24 21:07 HPI - SOB/Dyspnea General: Chief Complaint: Shortness of Breath/Dyspnea Stated Complaint: cough, sent by Her Time Seen by Provider: 03/26/24 15:44 PFSH ED PFSH: Medical History (Updated 03/26/24 @ 20:29 by Sean Borden MD) Nephrolithiasis Depression Diabetic neuropathy HTN (hypertension) Diabetes Surgical History H/O lithotripsy Family History Mother Leukemia Father CAD (coronary artery disease) Kidney stones Chronic kidney disease (CKD) Social History Smoking and tobacco/nicotine status: never used tobacco/nicotine Alcohol intake: never Substance/Drug Use: never Lives independently: Yes Household members: significant other Marital status: / Current occupational status: retired Course Vital Signs: Vital signs: Vital Signs Temperature 97.9 F 03/26/24 15:15 Pulse Rate 110 H 03/26/24 20:33 Respiratory Rate 18 03/26/24 20:33 Blood Pressure 128/97 03/26/24 20:33 Pulse Oximetry 92 03/26/24 20:33 Oxygen Delivery Me thod Nasal Cannula 03/26/24 20:33 Oxygen Flow Rate 6 03/26/24 20:33 MDM - SOB/Dyspnea Medical Decision Making 63-year-old female comes in today from her primary care office due to hypoxia. Patient reports cough with congestion. Patient reports increased shortness of breath. Patient reports no chest pain. Patient denies any history of COPD or cigarette smoking. Lungs are decreased in the bases bilaterally. Abdomen soft nontender. No edema is noted in the extremities. Vital signs note an elevated pulse 122, respirations 24, O2 saturation on room air 87%. Differential diagnosis includes pneumonia, CHF, PE, respiratory failure. Chest x-ray did note some bilateral lower lobe infiltrates versus effusion. 1700, CBC notes a 10.8 white count, mild anemia with hemoglobin 9.4. D-dimer was 3.6. Troponin was 20. Lactic was 2.6. Patient has already been ordered 1 g of Rocephin and 500 of azithromycin. We will add a CTA for PE protocol to rule out pulmonary embolism. Due to elevated lactate patient given 1 L of IV fluid but monitor for increasing shortness of breath. 195, CTA did not demonstrate a pulmonary embolism and further confirmed bilateral infiltrates that may be suggestive of pneumonia versus CHF. Patient's second lactic come back elevated at 4.4. Patient was infused with 1 L of IV fluids. Discussed patient with Dr. Kumar who agreed with plan for admission. Dr. Borden was consulted and agreed to admission for bilateral pneumonia. Discussed case and went over labs and imaging with midlevel agree with his history assessment and plan at this time Lab Data 03/26/24 16:12 03/26/24 16:12 Labs/Radiology: Radiology Impressions Chest X-Ray 03/26/24 15:13 Impression: 1. Bilateral lower lobe patchy opacities which probably represent pneumonia, atelectasis and a left pleural effusion. 2. Cardiomegaly. Chest CTA 03/26/24 16:59 IMPRESSION: 1. No CT findings of pulmonary embolus. 2. Lzfs-hw-weedvkxr posterior pleural effusions bilaterally, more prominent about the lower chest. Subjacent atelectasis within the lower lungs, with inability to exclude some component of basilar infiltrate. Lung windows demonstrate small amount of nonspecific scattered ground-glass opacity as well. Consider CHF or pneumonia. 3. Incidental finding of a partially visualized subcutaneous soft tissue mass mid to upper right neck with predominant negative Hounsfield measurements or fat density. Laboratory Results WBC 10.81 10^3/uL (3.29-11.43) 03/26/24 16:12 RBC 3.61 10^6/uL (3.85-5.65) L 03/26/24 16:12 Hgb 9.40 g/dL (11.27-16.99) L 03/26/24 16:12 Hct 29.7 % (36-47) L 03/26/24 16:12 MCV 82.3 fl (85-98) L 03/26/24 16:12 MCH 26.0 pg (27-33) L 03/26/24 16:12 MCHC 31.6 g/dL (30-55) 03/26/24 16:12 RDW 14.6 % (12.1-15.1) 03/26/24 16:12 Plt Count 423 10^3/cmm (157-399) H 03/26/24 16:12 MPV 9.7 fL (7.4-10.4) 03/26/24 16:12 Neut % (Auto) 69.2 % 03/26/24 16:12 Lymph % (Auto) 21.4 % 03/26/24 16:12 Culberson % (Auto) 6.8 % 03/26/24 16:12 Eos % (Auto) 1.0 % 03/26/24 16:12 Baso % (Auto) 0.9 % 03/26/24 16:12 Neut # (Auto) 7.48 10^3/uL (1.8-7.7) 03/26/24 16:12 Lymph # (Auto) 2.3 10^3/uL (0.8-4.8) 03/26/24 16:12 [place] # (Auto) 0.7 10^3/uL (0.2-0.9) 03/26/24 16:12 Eos # (Auto) 0.1 10^3/uL (0.0-0.8) 03/26/24 16:12 Baso # (Auto) 0.1 10^3/uL (0.0-0.1) 03/26/24 16:12 Nucleated RBC % (auto) 0 % 03/26/24 16:12 Nucleated RBCs # 0.0 /100WBC 03/26/24 16:12 D-Dimer 3.64 ug/mLFEU (0-0.59) H 03/26/24 16:12 Specimen Type Arterial 03/26/24 16:55 Sample Site Radial, right 03/26/24 16:55 ABG pH 7.46 (7.35-7.45) H 03/26/24 16:55 ABG pCO2 27.3 mmHg (35-45) L 03/26/24 16:55 ABG pO2 55.4 mmHg (80.0-100.0) L 03/26/24 16:55 ABG PO2/FiO2 Ratio 0 03/26/24 16:55 ABG HCO3 19.2 mmol/L (22-26) L 03/26/24 16:55 ABG Base Excess -3.7 mmol/L (-2.0-2.0) L 03/26/24 16:55 Kip Test Pos 03/26/24 16:55 Hematocrit 33.7 % (37-47) L 03/26/24 16:55 O2 Delivery Device Nc 03/26/24 16:55 O2 Liters/Min 4.0 % 03/26/24 16:55 FiO2 36.0 % 03/26/24 16:55 Body And Fender Mechanic Apprentice ID glc 03/26/24 16:55 Sodium 133 mmol/L (136-145) L 03/26/24 16:12 Potassium 4.4 mmol/L (3.5-5.1) 03/26/24 16:12 Chloride 95 mmol/L (98-107) L 03/26/24 16:12 Carbon Dioxide 20 mmol/L (22-29) L 03/26/24 16:12 Anion Gap 22.4 (5-19) H 03/26/24 16:12 BUN 18 mg/dL (8-23) 03/26/24 16:12 Creatinine 1.1 mg/dL (0.5-0.9) H 03/26/24 16:12 GFR Calculation 50.0 mL/min (90-130) L 03/26/24 16:12 Glucose 170 mg/dL (65-115) H 03/26/24 16:12 Calculated Osmolality 282 mOsm/kg (285-295) L 03/26/24 16:12 Lactic Acid 2.6 mmol/L (0.5-2.2) H 03/26/24 16:12 Lactic Acid (Sepsis) 4.4 mmol/L (0.5-2.2) H* 03/26/24 19:12 Calcium 8.5 mg/dL (8.5-10.5) 03/26/24 16:12 Total Bilirubin 0.2 mg/dL (0.15-1.2) 03/26/24 16:12 AST 15 U/L (0-32) 03/26/24 16:12 ALT 8 U/L (0-33) 03/26/24 16:12 Alkaline Phosphatase 74 U/L (35-105) 03/26/24 16:12 Troponin T Baseline 20 ng/L (0-10) H 03/26/24 16:12 Troponin T 120 Minute 20.71 ng/L (0-10) H 03/26/24 19:12 Delta Troponin T 0.71 ABS# (0-10) 03/26/24 19:12 NT-Pro-B Natriuret Pep 3382 pg/mL (0-125) H 03/26/24 16:12 Total Protein 7.7 g/dL (6.6-8.7) 03/26/24 16:12 Albumin 4.2 g/dL (3.5-5.2) 03/26/24 16:12 Globulin 3.5 g/dL (1.3-4.6) 03/26/24 16:12 Procalcitonin 0.42 ng/mL (0-0.5) 03/26/24 19:12 Adenovirus (PCR) Not detected (NOT DETECT) 03/26/24 17:06 C. pneumoniae DNA (PCR) Not detected (NOT DETECT) 03/26/24 17:06 Coronavirus 229E (PCR) Not detected (NOT DETECT) 03/26/24 17:06 Human Metapneumovir PCR Not detected (NOT DETECT) 03/26/24 17:06 Influenza A (H1) PCR Not detected (NOT DETECT) 03/26/24 17:06 Influ A (H1/09) PCR Not detected (NOT DETECT) 03/26/24 17:06 Influenza A (H3) PCR Not detected (NOT DETECT) 03/26/24 17:06 Influenza Type A (PCR) Not detected (NOT DETECT) 03/26/24 17:06 Influenza Type B (PCR) Not detected (NOT DETECT) 03/26/24 17:06 M. pneumoniae (PCR) Not detected (NOT DETECT) 03/26/24 17:06 Parainfluenza 1 (PCR) Not detected (NOT DETECT) 03/26/24 17:06 Parainfluenza 2 (PCR) Not detected (NOT DETECT) 03/26/24 17:06 Parainfluenza 3 (PCR) Not detected (NOT DETECT) 03/26/24 17:06 Parainfluenza 4 (PCR) Not detected (NOT DETECT) 03/26/24 17:06 RSV Type A (PCR) Not detected (NOT DETECT) 03/26/24 17:06 RSV Type B (PCR) Not detected (NOT DETECT) 03/26/24 17:06 Entero/Rhino (PCR) Not detected (NOT DETECT) 03/26/24 17:06 SARS-CoV-2 (PCR) Not detected (NOT DETECT) 03/26/24 17:06 Discharge Plan Discharge Patient Disposition: Admitted As Inpatient Admit Provider: Sean Borden Clinical Impression: Pneumonia Condition: Stable Coding Level of Care Code ED Affirmative Action Specialist for Lui Theodora
--- NOTE | 2024-03-26 16:26 | PC.PHAR ---
PT STATES TAKES MOST OF HER ONCE DAILY MEDICATIONS AT NIGHT. PT DID TAKE HER OTHER MEDICATIONS TODAY.
[2024-03-26 16:29] LABS: Basophils # 0.1 10^3/uL (0.0-0.1); Basophils % 0.9 %; Eosinophils # 0.1 10^3/uL (0.0-0.8); Hematocrit 29.7 % (36-47); Lymphocytes # 2.3 10^3/uL (0.8-4.8); Lymphocytes % 21.4 %; Mean Corpuscular HGB Conc 31.6 g/dL (30-55); Mean Corpuscular Volume 82.3 fl (85-98); Mean Platelet Volume 9.7 fL (7.4-10.4); Monocytes # 0.7 10^3/uL (0.2-0.9); Monocytes % 6.8 %; Neutrophils # 7.48 10^3/uL (1.8-7.7); Neutrophils % 69.2 %; Nucleated Red Blood Cells % 0 %; Platelet Count 423 10^3/cmm (157-399); Red Blood Count 3.61 10^6/uL (3.85-5.65); Red Cell Distribution Width 14.6 % (12.1-15.1); White Blood Count 10.81 10^3/uL (3.29-11.43)
[2024-03-26] MEDS: ipratropium-albuterol 3 mL Neb INHALATION (16:41)
[2024-03-26 16:51] LABS: Lactic Sepsis W/Reflex 2.6 mmol/L (0.5-2.2)
[2024-03-26 16:52] LABS: Troponin(5th) Baseline 20 ng/L (0-10)
[2024-03-26 16:57] LABS: D Dimer 3.64 ug/mLFEU (0-0.59)
[2024-03-26] MEDS: cefTRIAXone 1,000 MG in sodium chloride 0.9% (plus) 50 ML 100 MG IV (16:58)
--- NOTE | 2024-03-26 16:59 | CTR_ITS ---
PROCEDURE INFORMATION: Exam: CTA Chest With Contrast Exam date and time: 03/26/2024 5:36 PM Age: 63 years old Clinical indication: Dyspnea; Additional info: Dyspnea, elevated d dimer TECHNIQUE: Imaging protocol: Computed tomographic angiography of the chest with contrast. Exam focused on the arteries. 3D rendering (Not supervised by radiologist): MIP and/or 3D reconstructed images were created by the technologist. Radiation optimization: All CT scans at this facility use at least one of these dose optimization techniques: automated exposure control; mA and/or kV adjustment per patient size (includes targeted exams where dose is matched to clinical indication); or iterative reconstruction. Contrast material: OMNI 350; Contrast volume: 80 ml; Contrast route: INTRAVENOUS (IV); COMPARISON: [place] [id number] 01/14/2020 2:56 PM RADIATION DOSE METRICS: Total DLP (mGy-cm): 368.82 FINDINGS: Pulmonary arteries: No hypodense filling defect is seen within the pulmonary arteries or their branches to indicate pulmonary embolus. Aorta: No findings to indicate thoracic aortic aneurysm or dissection. Lungs: See Pleural spaces finding. Pleural spaces: Gyvj-yi-bapvnqxk posterior pleural effusions bilaterally, more prominent about the lower chest. Subjacent atelectasis is seen within the lower lungs. Some component of basilar infiltrate not excluded, as well. No pneumothorax. Lung windows demonstrate small amount of scattered ground-glass opacity otherwise. Heart: Upper limits of normal cardiac size. No pericardial effusion. Mild to moderate coronary artery calcification. Lymph nodes: Nonspecific lymph nodes within the mediastinum, without significant enlargement. Diaphragm: Tiny hiatal hernia. Gallbladder and bile ducts: Previous cholecystectomy. Bones/joints: Spondylotic change thoracic spine. Soft tissues: Partially visualized oval-shaped mild heterogeneous predominant hypodense deep subcutaneous soft tissue mass within the visualized mid to upper right neck, with predominant negative Hounsfield measurements or fat density. CT/CT angio chest PE protcl [id number] IMPRESSION: 1. No CT findings of pulmonary embolus. 2. Slor-bc-dlulfubb posterior pleural effusions bilaterally, more prominent about the lower chest. Subjacent atelectasis within the lower lungs, with inability to exclude some component of basilar infiltrate. Lung windows demonstrate small amount of nonspecific scattered ground-glass opacity as well. Consider CHF or pneumonia. 3. Incidental finding of a partially visualized subcutaneous soft tissue mass mid to upper right neck with predominant negative Hounsfield measurements or fat density.
[2024-03-26 17:01] LABS: Alanine Aminotransferase 8 U/L (0-33); Albumin Level 4.2 g/dL (3.5-5.2); Alkaline Phosphatase 74 U/L (35-105); Anion Gap 22.4 (5-19); Aspartate Amino Transferase 15 U/L (0-32); Blood Urea Nitrogen 18 mg/dL (8-23); Calcium 8.5 mg/dL (8.5-10.5); Carbon Dioxide 20 mmol/L (22-29); Chloride 95 mmol/L (98-107); Creatinine Clr Calc Pharmacy 45.8766; Globulin 3.5 g/dL (1.3-4.6); Glucose 170 mg/dL (65-115); NT Pro B Type Natriuretic Pept 3382 pg/mL (0-125); Osmolality Calculated 282 mOsm/kg (285-295); Potassium 4.4 mmol/L (3.5-5.1); Sodium 133 mmol/L (136-145); Total Bilirubin 0.2 mg/dL (0.15-1.2); Total Protein 7.7 g/dL (6.6-8.7)
[2024-03-26 17:07] LABS: ABG PCO2 27.3 mmHg (35-45); ABG PH Result 7.46 (7.35-7.45); Arterial Blood Gas Hematocrit 33.7 % (37-47); Base Excess ABG -3.7 mmol/L (-2.0-2.0); Blood Gas Allen Test Pos; Blood Gas Operator Identificat glc; Blood Gas Sample Site Radial, right; Blood Gas Sample Type Arterial; HCO3 ABG 19.2 mmol/L (22-26); Oxygen Device NC; PO2 ABG 55.4 mmHg (80.0-100.0); PO2 FiO2 Ratio Arterial Blood 0
[2024-03-26] MEDS: iohexol 350 mg/mL 500 mL Btl (per mL) IV (17:46)
--- NOTE | 2024-03-26 17:52 | ECG_ITS ---
[facility] Test Date: 2024-03-26 Pat Name: Corinne Gottlieb Department: Room: Gender: Female Biofuels Manager: : 1960 Requested By: Rod Puckett Order Number: [id number] Krysta MD: Julio Don M.D. Measurements Intervals [place] Rate: 120 P: 16 MN: 133 QRS: -30 QRSD: 130 T: 20 QT: 358 QTc: 506 Interpretive Statements SINUS TACHYCARDIA BORDERLINE LEFT AXIS DEVIATION [QRS AXIS < -20] RIGHT BUNDLE BRANCH BLOCK [120+ ms QRS DURATION, UPRIGHT V1, 40+ ms S IN I/aVL/V4/V5/V6] Compared to ECG 03/26/2024 15:15:37 No significant changes Electronically Signed On 03-27-2024 0:13:25 CDT by Julio Don M.D. [email or web address]
[2024-03-26] MEDS: azithromycin 500 MG in sodium chloride 0.9% 250 ML 250 MG IV (17:53)
[2024-03-26 18:10] LABS: Reflex Lactate Order REFLEX LACTIC ORDERD
[2024-03-26 19:08] LABS: Adenovirus Not Detected (NOT DETECT); Chlamydia Pneumoniae Not Detected (NOT DETECT); Coronavirus 229E,HKU1,NL63,OC4 Not Detected (NOT DETECT); Human Metapneumovirus Not Detected (NOT DETECT); Human Rhinovirus/Enterovirus Not Detected (NOT DETECT); Influenza A Not Detected (NOT DETECT); Influenza A H1 Not Detected (NOT DETECT); Influenza A H1-2009 Not Detected (NOT DETECT); Influenza A H3 Not Detected (NOT DETECT); Influenza B Not Detected (NOT DETECT); Mycoplasma Pneumoniae Not Detected (NOT DETECT); Parainfluenza Virus Type 1 Not Detected (NOT DETECT); Parainfluenza Virus Type 2 Not Detected (NOT DETECT); Parainfluenza Virus Type 3 Not Detected (NOT DETECT); Parainfluenza Virus Type 4 Not Detected (NOT DETECT); Respiratory Syncytial Virus A Not Detected (NOT DETECT); Respiratory Syncytial Virus B Not Detected (NOT DETECT); SARS-COV-2 Not Detected (NOT DETECT)
[2024-03-26] MEDS: ondansetron 2 mg/ML SDV 2 mL 4 MG IVP ×2 (19:14→22:31)
[2024-03-26] MEDS: sodium chloride 0.9% 1,000 ML 999 ML IV (19:28)
[2024-03-26 19:36] LABS: Troponin 5 2HR 20.71 ng/L (0-10); Troponin 5 2HR Delta 0.71 ABS# (0-10)
[2024-03-26 19:44] LABS: Lactic Acid level (Lactate) 4.4 mmol/L (0.5-2.2)
--- NOTE | 2024-03-26 19:55 | P.HP_ITS ---
Providers/Chief Complaint 2 Primary Care Provider: April Her MD Chief Complaint: cough, sent by Taina History of Present Illness Corinne Gottlieb is a 63 year old female presented with chief complaint shortness of breath Chronic patient to PCP clinic. Patient has not noticed any fever chest pain nausea vomiting diarrhea but stating that she has been experiencing excessive cough for last few days. She does not have any history of CHF. In the ER she was diagnosed with pneumonia and possible CHF exacerbation, D-dimer 3.6 no sign of PE, her lactic acid worsens with use of albuterol he is tachypneic tachycardic stating that her heart rate is always high, she has never been diagnosed with A-fib, does not take anything for her heart rate control. She has not noticed any palpitations. Review of Systems 2 Const: Denies: fever(s) Eyes: Denies: change in vision ENMT: Denies: throat pain Card: Reports: palpitations Resp: Reports: dyspnea GI: Denies: abdominal pain Medications/Allergies Home Medications Medication Instructions Recorded Confirmed Last Taken Type gabapentin 300 mg capsule 300 mg PO TID 01/12/20 03/26/24 03/26/24 History hydroxyzine HCl 50 mg tablet 50 mg PO QID 01/12/20 03/26/24 03/25/24 History glipizide 10 mg tablet 10 mg PO DAILY 05/06/22 03/26/24 03/26/24 History metformin 750 mg tablet,extended 750 mg PO BID 05/06/22 03/26/24 03/26/24 History release 24 hr omeprazole 40 mg capsule,delayed 40 mg PO BID 05/06/22 03/26/24 03/26/24 History release venlafaxine 150 mg 150 mg PO DAILY 05/06/22 03/26/24 03/25/24 History capsule,extended release 24 hr nifedipine 30 mg tablet,extended 30 mg PO DAILY 02/14/24 03/26/24 03/26/24 History release 24 hr quetiapine 25 mg tablet 25 mg PO QPM 02/14/24 03/26/24 03/25/24 History Allergies Allergy/AdvReac Type Severity Reaction Status Date / Time codeine Allergy ALGY-Swell Verified 02/14/24 11:12 Lip/Tongue/Throat diphenhydramine Allergy ADR-Agitate Verified 02/14/24 11:12 [From Benadryl] d Penicillins Allergy ALGY-Rash Verified 02/14/24 11:12 Sulfa (Sulfonamide Allergy ALGY-Rash Verified 02/14/24 11:12 Antibiotics) PFSH Acute 2 PFSH: Medical History (Updated 03/26/24 @ 20:29 by Sean Borden MD) Nephrolithiasis Depression Diabetic neuropathy HTN (hypertension) Diabetes Surgical History H/O lithotripsy Family History Mother Leukemia Father CAD (coronary artery disease) Kidney stones Chronic kidney disease (CKD) Social History Smoking and tobacco/nicotine status: never used tobacco/nicotine Alcohol intake: never Substance/Drug Use: never Lives independently: Yes Household members: significant other Marital status: / Current occupational status: retired Vitals/I&O/Wt Last Vital Signs Temp 97.9 F 03/26/24 15:15 Pulse 118 H 03/26/24 18:30 Resp 20 H 03/26/24 17:53 BP 102/76 03/26/24 18:30 Pulse Ox 95 03/26/24 18:30 O2 Del Method Nasal Cannula 03/26/24 18:30 O2 Flow Rate 6 03/26/24 18:30 03/26/24 03/26/24 03/26/24 06:59 14:59 22:59 Intake Total 300 / 300 Balance 300 / 300 Weight last 48 hrs Weight 56.245 kg Physical Exam 2 Narrative: Awake and alert Mild signs of CHF Crackles noted at base of the lungs Currently on 4 L nasal cannula Tachycardic GCS 15 Pleasant Nonfocal neuroexam Data 03/26/24 16:12 03/26/24 16:12 Micro: Microbiology 03/26/24 16:05 Blood Culture - Preliminary Blood SPECIMEN COLLECTED 03/26/24 16:12 Blood Culture - Preliminary Blood SPECIMEN COLLECTED A&P Assessment and plan (1) Acute kidney injury: (2) Pneumonia: Qualifiers: Laterality: bilateral Lung location: lower lobe of lung Pneumonia type: due to unspecified organism Qualified Code(s): J18.9 - Pneumonia, unspecified organism (3) New onset of congestive heart failure: Plan New onset CHF Give Lasix Echo requested Check D-dimer and TSH No active chest pain High lactic acid related to use of albuterol type II lactic acid is most likely Community-acquired pneumonia start ceftriaxone and azithromycin CT chest requested Palpitations, sinus tachycardia High D-dimer no sign of PE Monitor on telemetry Sepsis related to pneumonia Not a good candidate to receive septic bolus Because of new onset CHF Judicious use of fluids Start antibiotics Blood cultures taken Full code Cardiac diet Attestations 2 Medical Necessity Statement*: Anticipating discharge within 40 hours Diagnoses Acute kidney injury N17.9 Pneumonia J18.9 Laterality: bilateral Lung location: lower lobe of lung Pneumonia type: due to unspecified organism New onset of congestive heart failure I50.9
[2024-03-26 20:40] LABS: Procalcitonin 0.42 ng/mL (0-0.5)
--- NOTE | 2024-03-26 21:31 | USCV_ITS ---
Corinne Gottlieb Age: 63 Gender: F : 1960 Exam Date: 03/26/2024 23:26 Ordering Phys: Sean Borden MD Technologist: KURT Exam Location: [facility] Indication: CHF, hypoxia, DM. No history of cardiac intervention per patient. BP: 128 / 97 HR: 114 Rhythm: Atrial Fibrillation Technical Quality: Adequate MEASUREMENTS (Male / Female) Normal Values 2D ECHO LV Diastolic Diameter PLAX 4.8 cm 4.2 - 5.9 / 3.9 - 5.3 cm IVS Diastolic Thickness 1.0 cm 0.6 - 1.0 / 0.6 - 0.9 cm IVS Systolic Thickness 0.9 cm LVPW Diastolic Thickness 0.9 cm 0.6 - 1.0 / 0.6 - 0.9 cm LVPW Systolic Thickness 1.0 cm LVOT Diameter 1.9 cm LV Ejection Fraction 2D Teich 44.0 % LV Ejection Fraction MOD 2C 29.6 % LV Ejection Fraction 2C AL 28.0 % LA Diameter 4.4 cm LA Sys Volume AL 57.6 cm cubed LA Sys Volume Index AL 37.3 cm cubed/m squared Aorta at Sinotubular Diameter 2.7 cm IVC Diameter 1.8 cm M-MODE LA Ao Ratio MM 1.5 AV Cusp Separation MM 1.4 cm DOPPLER AV Peak Velocity 122.0 cm/s LVOT Peak Velocity 75.0 cm/s AV Area Cont Eq vti 1.7 cm squared AV Area Cont Eq pk 1.7 cm squared MV Peak Velocity 135.0 cm/s MV Area PHT 5.1 cm squared Mitral E to A Ratio 261.0 TV Peak Velocity 325.0 cm/s TR Peak Velocity 339.0 cm/s TR Peak Gradient 46.0 mmHg TV Peak E Velocity 40.0 cm/s Right Atrial Pressure 10.0 mmHg Pulmonary Artery Systolic Pressu 56.0 mmHg PV Peak Velocity 54.0 cm/s FINDINGS Left Ventricle Left ventricle is normal size. LV systolic function is moderately reduced with EF of 35-40%. Mild global hypokinesis with moderate hypokinesis of anterolateral and anterior lockhart. Right Ventricle Normal in size and function Right Atrium Normal in size Left Atrium Dilated Mitral Valve Mild mitral annular calcification. Moderate mitral regurgitation. Aortic Valve Structurally normal aortic valve. No significant stenosis or regurgitation. Tricuspid Valve Moderate tricuspid regurgitation. RVSP is 55 to 60 mmHg. This is consistent with moderate pulmonary hypertension Pulmonic Valve Mild pulmonic regurgitation. Pericardium Pleural effusion is noted Aorta Normal in size IVC Appears to be normal CONCLUSIONS LV systolic function is moderately reduced with EF of 35-40% Left atrial dilation Moderate mitral regurgitation Moderate tricuspid regurgitation Moderate pulmonary hypertension Pleural effusion seen No comparison studies are available. Nam Simpson MD (Electronically Signed) Final Date: 27 Mar 2024 10:47 S
--- NOTE | 2024-03-26 21:52 | ECG_ITS ---
[facility] Test Date: 2024-03-26 Pat Name: Corinne Gottlieb Department: Room: 254 Gender: Female Gateman: : 1960 Requested By: Rod Puckett Order Number: [id number] Krysta MD: Nam Simpson M.D. Measurements Intervals [place] Rate: 117 P: -29 NV: 108 QRS: -29 QRSD: 119 T: -30 QT: 362 QTc: 506 Interpretive Statements SINUS TACHYCARDIA WITH SHORT NV INTERVAL POSSIBLE LEFT ATRIAL ENLARGEMENT [-0.1mV P-WAVE IN V1/V2] RIGHT BUNDLE BRANCH BLOCK [120+ ms QRS DURATION, UPRIGHT V1, 40+ ms S IN I/aVL/V4/V5/V6] INFERIOR MYOCARDIAL INFARCTION , PROBABLY OLD [40+ ms Q WAVE AND/OR ST/T ABNORMALITY IN II/aVF] Compared to ECG 03/26/2024 18:10:35 Short NV interval now present Myocardial infarct finding now present Electronically Signed On 03-27-2024 17:15:02 CDT by Nam Simpson M.D. [id number]
[2024-03-26 22:04] LABS: Thyroid Stimulating Hormone 2.84 uIU/mL (0.27-4.20)
[2024-03-26] MEDS: FUROsemide 10 mg/mL SDV 2mL 20 MG IVP (22:08)
[2024-03-26] MEDS: enoxaparin 40 mg/0.4 mL Syringe SUBCUT (22:08)
[2024-03-26 23:10] LABS: Troponin 5 6HR 28.39 ng/L (0-10); Troponin 5 6HR Delta 8.39 ng/L (0-12)
[2024-03-27] VITALS (10 sets, daily range): BP systolic 120–134; BP diastolic 76–91; PULSE 93–122; RESP 17–20; TEMP 36.6–36.9; O2SAT 90–96; BMI 26.4
[2024-03-27 06:14] LABS: Basophils # 0.1 10^3/uL (0.0-0.1); Basophils % 0.9 %; Eosinophils # 0.1 10^3/uL (0.0-0.8); Eosinophils % 0.5 %; Hematocrit 29.5 % (36-47); Mean Corpuscular HGB Conc 31.2 g/dL (30-55); Mean Corpuscular Hemoglobin 25.8 pg (27-33); Mean Corpuscular Volume 82.6 fl (85-98); Mean Platelet Volume 9.9 fL (7.4-10.4); Monocytes # 0.6 10^3/uL (0.2-0.9); Monocytes % 6.5 %; Neutrophils # 6.95 10^3/uL (1.8-7.7); Neutrophils % 71.3 %; Nucleated Red Blood Cells % 0.3 %; Platelet Count 457 10^3/cmm (157-399); Red Blood Count 3.57 10^6/uL (3.85-5.65); Red Cell Distribution Width 14.7 % (12.1-15.1); White Blood Count 9.75 10^3/uL (3.29-11.43)
[2024-03-27 06:37] LABS: Anion Gap 21.8 (5-19); Blood Urea Nitrogen 16 mg/dL (8-23); C Reactive Protein 17.9 mg/L (0.0-4.9); Calcium 8.9 mg/dL (8.5-10.5); Carbon Dioxide 20 mmol/L (22-29); Chloride 98 mmol/L (98-107); Creatinine Clr Calc Pharmacy 44.3265; Glomerular Filtration Rate 45.2 mL/min (90-130); Glucose 165 mg/dL (65-115); Magnesium 1.3 mg/dL (1.7-2.3); Osmolality Calculated 285 mOsm/kg (285-295); Potassium 4.8 mmol/L (3.5-5.1); Sodium 135 mmol/L (136-145)
[2024-03-27 06:39] LABS: Glucose Point of Care 164 mg/dL (70-110)
[2024-03-27] MEDS: azithromycin 250 mg Tablet 500 MG PO (08:50)
[2024-03-27 10:49] LABS: Glucose Point of Care 186 mg/dL (70-110)
--- NOTE | 2024-03-27 12:04 | P.PN_ITS ---
Subjective 2 Subjective: Oxygen requirement has worsened up to 6 L Does not use oxygen at home Pleasant She lives with her significant other at home She had questions regarding use of glipizide and metformin in the hospital we will not be able to use those pills to avoid drug interaction we can only use it. For now Will give her IV Lasix every 12 hours, she does not want Bullard catheter placement Vitals/I&O/Wt Last Vital Signs Temp 98 F 03/27/24 11:42 Pulse 119 H 03/27/24 11:42 Resp 18 03/27/24 11:42 BP 132/84 03/27/24 11:42 Pulse Ox 93 03/27/24 11:42 O2 Del Method Nasal Cannula 03/27/24 11:42 O2 Flow Rate 6 03/27/24 09:30 03/26/24 03/27/24 03/27/24 22:59 06:59 14:59 Intake Total 1140 / 1140 100 / 1240 240 / 240 Balance 1140 / 1140 100 / 1240 240 / 240 Weight last 48 hrs Weight 59.285 kg Weight 59.285 kg Weight 56.245 kg Physical Exam 2 Narrative: Awake and alert GCS 15 On 6 L Diffuse crackles Pleasant cooperative Nonfocal neuroexam Abdomen soft S1, S2 tachycardia Data 03/27/24 05:44 03/27/24 05:44 Micro: Microbiology 03/26/24 16:05 Blood Culture - Preliminary Blood SPECIMEN COLLECTED 03/26/24 16:12 Blood Culture - Preliminary Blood SPECIMEN COLLECTED A&P Assessment and plan (1) New onset of congestive heart failure: (2) Anemia: (3) Pneumonia: Qualifiers: Laterality: bilateral Lung location: lower lobe of lung Pneumonia type: due to unspecified organism Qualified Code(s): J18.9 - Pneumonia, unspecified organism (4) Ofjkx-cp-ltbbvzn kidney injury: (5) Sepsis: Plan Sepsis present on admission Continue treatment with antibiotics Awaiting IV fluids Patient is in heart failure New onset CHF 40 mg of IV Lasix every 12 hours awaiting echo report Acute hypoxia requiring 6 L Hypoxia worsening Diuretic dose increased Sinus tachycardia is chronic Add metoprolol No signs of A-fib or PE Acute on chronic kidney disease anticipating pulmonary diuresis Replenish magnesium Lactic acidemia likely type II due to use of albuterol Patient could not take metformin because she has high lactic acid with GFR is around 45 check A1c level to see Plan to keep her here until her oxygen requirement improves Attestations 2 Medical Necessity Statement*: Continue medical management Diagnoses New onset of congestive heart failure I50.9 Anemia D64.9 Pneumonia J18.9 Laterality: bilateral Lung location: lower lobe of lung Pneumonia type: due to unspecified organism Hajej-ov-cqfstjn kidney injury N17.9; N18.9 Sepsis A41.9
[2024-03-27] MEDS: metoprolol tartrate 25 mg Tablet PO ×2 (13:00→20:06)
[2024-03-27] MEDS: FUROsemide 10 mg/mL SDV 4mL 40 MG IVP ×2 (13:00→23:51)
[2024-03-27 13:19] LABS: Estmated Average Glucose 143; Hemoglobin A1C 6.6 % (4.0-6.0)
[2024-03-27 16:38] LABS: Glucose Point of Care 215 mg/dL (70-110)
[2024-03-27] MEDS: cefTRIAXone 1,000 MG in sodium chloride 0.9% (plus) 50 ML 100 MG IV (17:06)
[2024-03-27] MEDS: pantoprazole DR 40 mg Tablet PO (17:06)
[2024-03-27] MEDS: enoxaparin 40 mg/0.4 mL Syringe SUBCUT (20:49)
[2024-03-28] VITALS (10 sets, daily range): BP systolic 119–138; BP diastolic 75–94; PULSE 89–102; RESP 16–20; TEMP 36.4–36.8; O2SAT 86–95
[2024-03-28 05:35] LABS: Basophils # 0.1 10^3/uL (0.0-0.1); Basophils % 1.3 %; Eosinophils # 0.1 10^3/uL (0.0-0.8); Eosinophils % 1.3 %; Hematocrit 28.8 % (36-47); Lymphocytes # 1.9 10^3/uL (0.8-4.8); Lymphocytes % 22.9 %; Mean Corpuscular HGB Conc 31.6 g/dL (30-55); Mean Corpuscular Hemoglobin 25.8 pg (27-33); Mean Corpuscular Volume 81.6 fl (85-98); Mean Platelet Volume 9.9 fL (7.4-10.4); Monocytes # 0.7 10^3/uL (0.2-0.9); Monocytes % 7.7 %; Neutrophils # 5.59 10^3/uL (1.8-7.7); Neutrophils % 66.1 %; Nucleated Red Blood Cells # 0.1 /100WBC; Nucleated Red Blood Cells % 0.7 %; Platelet Count 441 10^3/cmm (157-399); Red Blood Count 3.53 10^6/uL (3.85-5.65); White Blood Count 8.46 10^3/uL (3.29-11.43)
[2024-03-28 05:58] LABS: Anion Gap 19.6 (5-19); Blood Urea Nitrogen 19 mg/dL (8-23); Calcium 8.3 mg/dL (8.5-10.5); Carbon Dioxide 21 mmol/L (22-29); Chloride 96 mmol/L (98-107); Creatinine Clr Calc Pharmacy 37.7904; Glomerular Filtration Rate 37.9 mL/min (90-130); Glucose 185 mg/dL (65-115); Osmolality Calculated 283 mOsm/kg (285-295); Potassium 3.6 mmol/L (3.5-5.1); Sodium 133 mmol/L (136-145)
--- NOTE | 2024-03-28 06:00 | ECG_ITS ---
[facility] Test Date: 2024-03-28 Pat Name: Corinne Gottlieb Department: Room: 256 Gender: Female Platform Worker: : 1960 Requested By: Sean Borden Order Number: [id number] Krysta MD: Julio Don M.D. Interpretive Statements NAME OF STUDY: LEXISCAN SESTAMIBI STRESS TEST INDICATION: UA PROCEDURE: At the baseline, the EKG revealed normal sinus rhythm with right bundle branch block, left atrial enlargement and some nonspecific T wave changes. The baseline heart was 89 bpm with a blood pressue of 113/74 mm of Hg Lexiscan was infused over a period of 20 seconds. A total of 0.4 milligrams of Lexiscan was infused. The stress phase was continued for a total of 5 minutes. Heart rate at the end of the stress phase was 95 bpm with a blood pressure 122/77 mm of Hg. The EKG at the peak infusion revealed no significant changes. Sestamibi was injected 20 seconds after the Lexiscan infusion. Heart rate at the end of the recovery phase was 94 bpm with a blood pressure of 121/75 mm of Hg. CONCLUSION: 1. No significant EKG changes with the LexiScan infusion 2. No LexiScan induced chest pain or cardiac arrhythmia 3. Normal blood pressure and heart rate response 4. Sestamibi/sestamibi perfusion scan pending; see separate report. Electronically Signed On 04-07-2024 8:50:38 CDT by Julio Don M.D. [id number]
[2024-03-28 06:29] LABS: Glucose Point of Care 160 mg/dL (70-110)
--- NOTE | 2024-03-28 06:45 | NMCV_ITS ---
NM nicole perf SPECT r/s* [id number] Corinne Gottlieb Age: 63 Gender: F : 1960 Exam Date: 03/28/2024 06:45 Ordering Phys: Sean Borden MD Technologist: DESTINY Kilgore Exam Location: [facility] Indications: CHEST PAIN STRESS TEST Please see separate stress test report in [facility] for full findings IMAGE PROTOCOL Rest/Stress 1 Lexiscan Day Radiopharmaceutical Dose (mCi) Administration Site Administered by Rest: Tc-99m 10.3 IV Kenia Bennett, NURSE WOUND CARE Sestamibi Stress:Tc-99m 32.4 IV Kenia Bennett, NURSE WOUND CARE Sestamibi Rest: 28-Mar-2024 60 Discovery 630 Stress: 28-Mar-2024 30 Discovery 630 0.4mg Lexiscan. Images obtained in supine and prone position. SPECT RESULTS Technical Quality: Excellent Raw Data Analysis: Normal Image Corrections: No attenuation or motion correction applied Summed Stress Score: 1 Summed Rest Score: 0 Summed Difference Score: 1 PERFUSION FINDINGS A small area of slightly decreased tracer uptake in the AP lateral segment. Some reversibility was noted in this area addressed. FUNCTIONAL RESULTS (calculated via Gated SPECT) Stress Image LV EF (%): 34 Stress EDV (mL):102 TID: 1 Stress ESV (mL):67 FUNCTIONAL FINDINGS: Segmental wall motion analysis revealing no gross wall motion abnormalities IMPRESSIONS 1. Myocardial perfusion imaging revealing a small area reversible defect in the apical lateral region suggestive of ischemia in the distribution of the left circumflex artery. (The SDS score was 1). 2. LV wall motion analysis revealed diffuse hypokinesia of the left ventricle 3. LV ejection fraction was estimated to be 34%. 4. Mildly dilated LV cavity with an end-systolic volume of 67 ml. No similar previous studies are available for comparison Dr Julio Don MD [facility] (Electronically Signed) Final Date: 28 Mar 2024 14:15 S
--- NOTE | 2024-03-28 06:45 | ECG_ITS ---
[facility] Test Date: 2024-03-28 Pat Name: Corinne Gottlieb Department: Room: 256 Gender: Female Clinical Case Manager: : 1960 Requested By: Sean Borden Order Number: [id number] Krysta MD: Nam Simpson M.D. Measurements Intervals [place] Rate: 98 P: 9 MT: 128 QRS: -35 QRSD: 138 T: 14 QT: 409 QTc: 524 Interpretive Statements SINUS RHYTHM POSSIBLE LEFT ATRIAL ENLARGEMENT [-0.1mV P-WAVE IN V1/V2] LEFT AXIS DEVIATION [QRS AXIS < -30] RIGHT BUNDLE BRANCH BLOCK [120+ ms QRS DURATION, UPRIGHT V1, 40+ ms S IN I/aVL/V4/V5/V6] Compared to ECG 03/26/2024 22:43:01 Left-axis deviation now present Sinus tachycardia no longer present Short MT interval no longer present Myocardial infarct finding no longer present Electronically Signed On 03-28-2024 13:07:49 CDT by Nam Simpson M.D. [id number]
--- NOTE | 2024-03-28 06:47 | P.PN_ITS ---
Subjective 2 Subjective: No significant events Metoprolol was added yesterday for her sinus tachycardia, Currently on nasal cannula oxygen supplementation Patient is upset stating that she wanted her metformin and glipizide which we are not able to use to avoid drug interaction in the hospital Echo showing reduced ejection fraction, I will request serial troponin and EKG since she has not complained of any chest pain I will try to arrange stress test if possible today Vitals/I&O/Wt Last Vital Signs Temp 98.3 F 03/28/24 04:34 Pulse 96 03/28/24 04:34 Resp 18 03/28/24 04:34 BP 128/85 03/28/24 04:34 Pulse Ox 93 03/28/24 04:34 O2 Del Method Nasal Cannula 03/28/24 04:34 O2 Flow Rate 6 03/27/24 09:30 03/27/24 03/27/24 03/28/24 14:59 22:59 06:59 Intake Total 480 / 480 290 / 770 120 / 890 Balance 480 / 480 290 / 770 120 / 890 Weight last 48 hrs Weight 58.967 kg Weight 59.285 kg Weight 59.285 kg Weight 56.245 kg Physical Exam 2 Narrative: Signs of fluid overload present Crackles bilateral on lung auscultation On nasal cannula Awake and alert GCS 15 Pleasant cough Nonfocal neuroexam Excessive coughing spells S1, S2 Data 03/28/24 04:50 03/28/24 04:50 Micro: Microbiology 03/26/24 16:05 Blood Culture - Preliminary Blood NEGATIVE TO DATE 03/26/24 16:12 Blood Culture - Preliminary Blood NEGATIVE TO DATE A&P Assessment and plan (1) New onset of congestive heart failure: (2) Acute renal failure: Qualifiers: Acute renal failure type: unspecified Qualified Code(s): N17.9 - Acute kidney failure, unspecified (3) Dltrv-qi-zhiejwc kidney injury: (4) Anemia: (5) Sepsis: (6) Pneumonia: Qualifiers: Laterality: bilateral Lung location: lower lobe of lung Pneumonia type: due to unspecified organism Qualified Code(s): J18.9 - Pneumonia, unspecified organism Plan 63-year-old female who presents to the hospital with chief complaint of worsening of shortness of breath, she was requiring 4 to 5 L of oxygen via nasal cannula, she was diagnosed with new onset CHF, echo showed reduced ejection fraction of 40%, there was consideration for sepsis on admission septic bolus was not given because of her CHF, patient also received contrast for CTA chest which did not show PE consistent with CHF related changes suffering from acute on chronic kidney disease, patient is stating that she has chronic history of palpitations her heart rate normally stable on 11 14-11 24 on a regular day New onset CHF Reduce ejection fraction EF 40% Active chest pain Requested serial troponin EKG Trying to arrange stress test for today if possible Acute on chronic kidney disease Anticipating improvement with diuresis Patient received contrast for CTA chest, monitor for contrast-induced nephropathy No significant acidosis Replenish hypokalemia and hypomagnesemia: With K rider and 1 g IV mag Acute hypoxia related to CHF Requiring 4 to 5 L of oxygen Sepsis related to pneumonia Continue antibiotics cultures negative, afebrile Full code N.p.o. for today, otherwise she will have consistent carb diet Continue insulin sliding scale, Attestations 2 Medical Necessity Statement*: Continue medical management Coding Level of Care Code 13165 Diagnoses New onset of congestive heart failure I50.9 Acute renal failure N17.9 Acute renal failure type: unspecified Nkjei-zb-wjddzxr kidney injury N17.9; N18.9 Anemia D64.9 Sepsis A41.9 Pneumonia J18.9 Laterality: bilateral Lung location: lower lobe of lung Pneumonia type: due to unspecified organism
[2024-03-28] MEDS: magnesium sulfate premix 1 GM/100 ML PIGGYBACK IV (07:11)
[2024-03-28] MEDS: potassium chloride ER 20 mEq Tablet 40 MEQ PO ×2 (07:11→08:52)
[2024-03-28] MEDS: ondansetron 2 mg/ML SDV 2 mL 4 MG IVP (07:21)
--- NOTE | 2024-03-28 08:45 | ECG_ITS ---
[facility] Test Date: 2024-03-28 Pat Name: Corinne Gottlieb Department: Room: 256 Gender: Female Rn Pediatric: : 1960 Requested By: Sean Borden Order Number: [id number] Krysta MD: Nam Simpson M.D. Measurements Intervals [place] Rate: 92 P: 20 WA: 116 QRS: -40 QRSD: 149 T: 10 QT: 416 QTc: 515 Interpretive Statements SINUS RHYTHM WITH SHORT [place] INTERVAL POSSIBLE LEFT ATRIAL ENLARGEMENT [-0.1mV P-WAVE IN V1/V2] LEFT AXIS DEVIATION [QRS AXIS < -30] RIGHT BUNDLE BRANCH BLOCK [120+ ms QRS DURATION, UPRIGHT V1, 40+ ms S IN I/aVL/V4/V5/V6] Compared to ECG 03/28/2024 07:27:57 Short [place] interval now present Electronically Signed On 03-28-2024 13:10:37 CDT by Nam Simpson M.D. [id number]
[2024-03-28] MEDS: metoprolol tartrate 25 mg Tablet PO (08:52)
[2024-03-28] MEDS: pantoprazole DR 40 mg Tablet PO (08:52)
[2024-03-28] MEDS: azithromycin 250 mg Tablet 500 MG PO (08:56)
[2024-03-28 09:11] LABS: Troponin(5th) Baseline 23 ng/L (0-10)
[2024-03-28 11:10] LABS: Troponin 5 2HR 23.11 ng/L (0-10); Troponin 5 2HR Delta 0.11 ABS# (0-10)
[2024-03-28 11:25] LABS: Glucose Point of Care 174 mg/dL (70-110)
[2024-03-28] MEDS: regadenoson 0.4 Mg/5 ml Syringe 0.400000000000000022 MG IVP (12:28)
--- NOTE | 2024-03-28 12:45 | ECG_ITS ---
[facility] Test Date: 2024-03-28 Pat Name: Corinne Gottlieb Department: Room: 256 Gender: Female Skill Labor: : 1960 Requested By: Sean Borden Order Number: [id number] Krysta MD: Nam Simpson M.D. Measurements Intervals [place] Rate: 96 P: 15 TN: 127 QRS: -38 QRSD: 133 T: 11 QT: 397 QTc: 504 Interpretive Statements SINUS RHYTHM POSSIBLE LEFT ATRIAL ENLARGEMENT [-0.1mV P-WAVE IN V1/V2] LEFT AXIS DEVIATION [QRS AXIS < -30] RIGHT BUNDLE BRANCH BLOCK [120+ ms QRS DURATION, UPRIGHT V1, 40+ ms S IN I/aVL/V4/V5/V6] Compared to ECG 03/28/2024 10:00:36 Short [place] interval no longer present Electronically Signed On 03-28-2024 20:26:13 CDT by Nam Simpson M.D. [id number]
[2024-03-28] MEDS: FUROsemide 10 mg/mL SDV 4mL 40 MG IVP (14:07)
--- NOTE | 2024-03-28 14:10 | P.CONIM_ITS ---
Providers/Reason For Consult 2 Consulting Physician/Specialty*: DINESH Don MD/cardiology Reason for Consult*: Patient with congestive heart failure and LV systolic dysfunction. Requesting Physician: Dr. Borden Attending Physician: Sean Borden MD Primary Care Provider: April Her MD History of Present Illness History of Present Illness Corinne Gottlieb is a 63 year old female with a history of hypertension, borderline diabetes and dyslipidemia, is admitted to the hospital through the emergency room where she presented with complaints of cough and shortness of breath she was initially treated with antibiotics for possible pneumonia. She also had a features of congestive heart failure. Her echocardiogram revealed an LV ejection fraction around 40%. Cardiology consult is requested for further cardiac evaluation and recommendations. This patient has no previous history for any coronary artery disease, myocardial infarction or congestive heart failure. Approximately a month ago, she had a traumatic injury to the back. According to the patient, is she been having a dry cough and shortness of breath ever since. The symptoms are progressively getting worse. She was seen by the primary care provider prior to hospital admission for these complaints. She was sent to the emergency room for further evaluation and management. Since the hospital admission she has significant improvement of the symptoms. She never had any chest pain. No fever, chills. No history for any recent upper respiratory infection. No history for any smoking abuse, alcohol abuse or any substance abuse. No significant family history for premature atherosclerotic heart disease. Her father had a questionable myocardial infarction in his 70s. She was found to have features of acute kidney injury in the hospital. PE was ruled out. She had a Myocardial perfusion imaging today. She was found to have a small area of possible ischemia in the apical lateral wall segment. The troponin T was negative for microinjury Review of Systems 2 Narrative: CONSTITUTIONAL: No fever or chills. EYES: No blurring of vision or other visual disturbances lately. ENT: No hoarseness of voice, auditory disturbances or sore throat. CARDIOVASCULAR: As mentioned above. RESPIRATORY: No significant cough. GASTROINTESTINAL: No hematemesis or melena. GENITOURINARY: No dysuria or hematuria. INTEGUMENTARY: No skin rashes or history of skin cancer. NEURO: No transient ischemic attacks or amaurosis. PSYCHIATRIC: No history of psychosis or major depression. HEMATOLOGIC: No bleeding disorders or significant anemia. ENDOCRINE: No history of polyuria or polydipsia. MUSCULOSKELETAL: No recent joint pain or swelling. ALLERGY/IMMUNOLOGY: As mentioned above. Medications/Allergies Home Medications Medication Instructions Recorded Confirmed Last Taken Type gabapentin 300 mg capsule 300 mg PO TID 01/12/20 03/26/24 03/26/24 History hydroxyzine HCl 50 mg tablet 50 mg PO QID 01/12/20 03/26/24 03/25/24 History glipizide 10 mg tablet 10 mg PO DAILY 05/06/22 03/26/24 03/26/24 History metformin 750 mg tablet,extended 750 mg PO BID 05/06/22 03/26/24 03/26/24 History release 24 hr omeprazole 40 mg capsule,delayed 40 mg PO BID 05/06/22 03/26/24 03/26/24 History release venlafaxine 150 mg 150 mg PO DAILY 05/06/22 03/26/24 03/25/24 History capsule,extended release 24 hr nifedipine 30 mg tablet,extended 30 mg PO DAILY 02/14/24 03/26/24 03/26/24 History release 24 hr quetiapine 25 mg tablet 25 mg PO QPM 02/14/24 03/26/24 03/25/24 History Allergies Allergy/AdvReac Type Severity Reaction Status Date / Time codeine Allergy ALGY-Swell Verified 02/14/24 11:12 Lip/Tongue/Throat diphenhydramine Allergy ADR-Agitate Verified 02/14/24 11:12 [From Benadryl] d Penicillins Allergy ALGY-Rash Verified 02/14/24 11:12 Sulfa (Sulfonamide Allergy ALGY-Rash Verified 02/14/24 11:12 Antibiotics) Current Medications Generic Name Dose Route Start Last Admin Trade Name Freq PRN Reason Stop Dose Admin Azithromycin 500 mg 03/27/24 09:00 03/28/24 08:56 Azithromycin 250 Mg Tablet PO 500 mg DAILY MILEY Administration Protocol Enoxaparin Sodium 40 mg 03/26/24 21:31 03/27/24 20:49 Enoxaparin 40 Mg/0.4 Ml Syringe SUBCUT 40 mg Q24H MILEY Administration Furosemide 40 mg 03/27/24 12:05 03/28/24 14:07 Furosemide 10 Mg/Ml Sdv 4ml IVP 40 mg Q12H MILEY Administration Ceftriaxone Sodium 1,000 mg/ 50 mls @ 100 mls/hr 03/27/24 17:00 03/27/24 17:53 Sodium Chloride IV Infused Q24H MILEY Infusion Protocol Insulin Human Lispro 0 unit 03/27/24 08:00 03/28/24 12:00 Insulin Lispro 100 Unit/1 Ml SUBCUT Not Given TIDWM MILYE Protocol Metoprolol Tartrate 25 mg 03/27/24 12:10 03/28/24 08:52 Metoprolol Tartrate 25 Mg Tablet PO 25 mg BID@0900,2100 MILEY Administration Ondansetron HCl 4 mg 03/26/24 21:31 03/28/24 07:21 Ondansetron 2 Mg/Ml Sdv 2 Ml IVP 4 mg Q6H PRN Administration NAUSEA AND VOMITING Pantoprazole Sodium 40 mg 03/27/24 18:00 03/28/24 08:[address] 40 Mg Tablet PO 40 mg BID MILEY Administration Potassium Chloride 40 meq 03/28/24 06:55 03/28/24 08:52 Potassium Chloride Er 20 Meq Tablet PO 40 meq DAILY MILEY Administration PFSH Acute 2 PFSH: Medical History Duodenitis Esophagitis Esophageal thickening Nephrolithiasis Depression Diabetic neuropathy HTN (hypertension) Diabetes Surgical History H/O lithotripsy Family History Mother Leukemia Father CAD (coronary artery disease) Kidney stones Chronic kidney disease (CKD) Social History Smoking and tobacco/nicotine status: never used tobacco/nicotine Alcohol intake: never Substance/Drug Use: never Lives independently: Yes Household members: significant other Marital status: / Current occupational status: retired Vitals/I&O/Wt Last Vital Signs Temp 97.5 F L 03/28/24 11:55 Pulse 95 03/28/24 12:53 Resp 16 03/28/24 11:55 BP 121/75 03/28/24 12:53 Pulse Ox 94 03/28/24 11:55 O2 Del Method Nasal Cannula 03/28/24 11:55 O2 Flow Rate 3 03/28/24 11:55 03/27/24 03/28/24 03/28/24 22:59 06:59 14:59 Intake Total 290 / 770 120 / 890 100 / 100 Balance 290 / 770 120 / 890 100 / 100 Weight last 48 hrs Weight 130 lb Weight 130 lb 11.2 oz Weight 130 lb 11.2 oz Weight 124 lb Physical Exam 2 Narrative: GENERAL: The patient is alert and oriented times three. Not in any acute distress. HEENT: No significant pallor, icterus or lymphadenopathy.Oral cavity: There are no mucous membrane lesions. NECK: Trachea appears to be central. No masses noted. No JVD or thyromegaly appreciated. RESPIRATORY: Chest is symmetrical. No intercostals muscle retraction or any accessory muscle activation. There is no chest wall tenderness. Breath sounds are heard bilaterally. No rales or rhonchi heard. No evidence of any consolidation. BREASTS: Deferred. HEART: The heart sounds are normal. No S3 or S4. Short systolic murmur in the mitral area. No diastolic murmurs.. No pericardial rub ABDOMEN: No vessel pulsations or distention. No tenderness. No organomegaly appreciated. Bowel sounds are normally heard. : Deferred. RECTAL: Deferred. LYMPHATIC: No lymphadenopathy noted in the neck. EXTREMITIES: No edema or cyanosis. No clubbing. MUSCULOSKELETAL: No acute joint deformities or swelling SKIN: There are no significant rashes or ecchymosis NEUROPSYCHIATRIC: The patient is alert and oriented x3. Appears to be in a good mood. No tremors or rigidity noted. Data 03/28/24 04:50 03/28/24 04:50 Other Labs: Laboratory Last Values WBC 8.46 10^3/uL (3.29-11.43) 03/28/24 04:50 RBC 3.53 10^6/uL (3.85-5.65) L 03/28/24 04:50 Hgb 9.10 g/dL (11.27-16.99) L 03/28/24 04:50 Hct 28.8 % (36-47) L 03/28/24 04:50 MCV 81.6 fl (85-98) L 03/28/24 04:50 MCH 25.8 pg (27-33) L 03/28/24 04:50 MCHC 31.6 g/dL (30-55) 03/28/24 04:50 RDW 15.0 % (12.1-15.1) 03/28/24 04:50 Plt Count 441 10^3/cmm (157-399) H 03/28/24 04:50 MPV 9.9 fL (7.4-10.4) 03/28/24 04:50 Neut % (Auto) 66.1 % 03/28/24 04:50 Lymph % (Auto) 22.9 % 03/28/24 04:50 Burt % (Auto) 7.7 % 03/28/24 04:50 Eos % (Auto) 1.3 % 03/28/24 04:50 Baso % (Auto) 1.3 % 03/28/24 04:50 Neut # (Auto) 5.59 10^3/uL (1.8-7.7) 03/28/24 04:50 Lymph # (Auto) 1.9 10^3/uL (0.8-4.8) 03/28/24 04:50 Burt # (Auto) 0.7 10^3/uL (0.2-0.9) 03/28/24 04:50 Eos # (Auto) 0.1 10^3/uL (0.0-0.8) 03/28/24 04:50 Baso # (Auto) 0.1 10^3/uL (0.0-0.1) 03/28/24 04:50 Nucleated RBC % (auto) 0.7 % 03/28/24 04:50 Nucleated RBCs # 0.1 /100WBC 03/28/24 04:50 D-Dimer 3.64 ug/mLFEU (0-0.59) H 03/26/24 16:12 Specimen Type Arterial 03/26/24 16:55 Sample Site Radial, right 03/26/24 16:55 ABG pH 7.46 (7.35-7.45) H 03/26/24 16:55 ABG pCO2 27.3 mmHg (35-45) L 03/26/24 16:55 ABG pO2 55.4 mmHg (80.0-100.0) L 03/26/24 16:55 ABG PO2/FiO2 Ratio 0 03/26/24 16:55 ABG HCO3 19.2 mmol/L (22-26) L 03/26/24 16:55 ABG Base Excess -3.7 mmol/L (-2.0-2.0) L 03/26/24 16:55 Kip Test Pos 03/26/24 16:55 Hematocrit 33.7 % (37-47) L 03/26/24 16:55 O2 Delivery Device Nc 03/26/24 16:55 O2 Liters/Min 4.0 % 03/26/24 16:55 FiO2 36.0 % 03/26/24 16:55 Skin Washer ID glc 03/26/24 16:55 Sodium 133 mmol/L (136-145) L 03/28/24 04:50 Potassium 3.6 mmol/L (3.5-5.1) 03/28/24 04:50 Chloride 96 mmol/L (98-107) L 03/28/24 04:50 Carbon Dioxide 21 mmol/L (22-29) L 03/28/24 04:50 Anion Gap 19.6 (5-19) H 03/28/24 04:50 BUN 19 mg/dL (8-23) 03/28/24 04:50 Creatinine 1.4 mg/dL (0.5-0.9) H 03/28/24 04:50 GFR Calculation 37.9 mL/min (90-130) L 03/28/24 04:50 Glucose 185 mg/dL (65-115) H 03/28/24 04:50 POC Glucose 174 mg/dL (70-110) H 03/28/24 11:12 Estimat Average Glucose 143 03/27/24 05:44 Hemoglobin A1c 6.6 % (4.0-6.0) H 03/27/24 05:44 Calculated Osmolality 283 mOsm/kg (285-295) L 03/28/24 04:50 Lactic Acid 2.6 mmol/L (0.5-2.2) H 03/26/24 16:12 Lactic Acid (Sepsis) 4.4 mmol/L (0.5-2.2) H* 03/26/24 19:12 Calcium 8.3 mg/dL (8.5-10.5) L 03/28/24 04:50 Magnesium 1.3 mg/dL (1.7-2.3) L 03/27/24 05:44 Total Bilirubin 0.2 mg/dL (0.15-1.2) 03/26/24 16:12 AST 15 U/L (0-32) 03/26/24 16:12 ALT 8 U/L (0-33) 03/26/24 16:12 Alkaline Phosphatase 74 U/L (35-105) 03/26/24 16:12 Troponin T Baseline 23 ng/L (0-10) H 03/28/24 08:36 Troponin T 120 Minute 23.11 ng/L (0-10) H 03/28/24 10:31 Delta Troponin T 0.11 ABS# (0-10) 03/28/24 10:31 Troponin T Hi Sens 6Hr 28.39 ng/L (0-10) H 03/26/24 22:17 Troponin T Hi Sens 6Hr Delta 8.39 ng/L (0-12) 03/26/24 22:17 C-Reactive Protein 17.9 mg/L (0.0-4.9) H 03/27/24 05:44 NT-Pro-B Natriuret Pep 3382 pg/mL (0-125) H 03/26/24 16:12 Total Protein 7.7 g/dL (6.6-8.7) 03/26/24 16:12 Albumin 4.2 g/dL (3.5-5.2) 03/26/24 16:12 Globulin 3.5 g/dL (1.3-4.6) 03/26/24 16:12 Procalcitonin 0.42 ng/mL (0-0.5) 03/26/24 19:12 TSH 2.84 uIU/mL (0.27-4.20) 03/26/24 19:12 Adenovirus (PCR) Not detected (NOT DETECT) 03/26/24 17:06 C. pneumoniae DNA (PCR) Not detected (NOT DETECT) 03/26/24 17:06 Coronavirus 229E (PCR) Not detected (NOT DETECT) 03/26/24 17:06 Human Metapneumovir PCR Not detected (NOT DETECT) 03/26/24 17:06 Influenza A (H1) PCR Not detected (NOT DETECT) 03/26/24 17:06 Influ A (H1/09) PCR Not detected (NOT DETECT) 03/26/24 17:06 Influenza A (H3) PCR Not detected (NOT DETECT) 03/26/24 17:06 Influenza Type A (PCR) Not detected (NOT DETECT) 03/26/24 17:06 Influenza Type B (PCR) Not detected (NOT DETECT) 03/26/24 17:06 M. pneumoniae (PCR) Not detected (NOT DETECT) 03/26/24 17:06 Parainfluenza 1 (PCR) Not detected (NOT DETECT) 03/26/24 17:06 Parainfluenza 2 (PCR) Not detected (NOT DETECT) 03/26/24 17:06 Parainfluenza 3 (PCR) Not detected (NOT DETECT) 03/26/24 17:06 Parainfluenza 4 (PCR) Not detected (NOT DETECT) 03/26/24 17:06 RSV Type A (PCR) Not detected (NOT DETECT) 03/26/24 17:06 RSV Type B (PCR) Not detected (NOT DETECT) 03/26/24 17:06 Entero/Rhino (PCR) Not detected (NOT DETECT) 03/26/24 17:06 SARS-CoV-2 (PCR) Not detected (NOT DETECT) 03/26/24 17:06 Micro: Microbiology 03/26/24 16:05 Blood Culture - Preliminary Blood NEGATIVE TO DATE 03/26/24 16:12 Blood Culture - Preliminary Blood NEGATIVE TO DATE Other data: The EKG from today revealed Normal sinus rhythm with a right bundle branch block pattern. Short OR interval. Some nonspecific T wave changes. Possible left atrial enlargement. The Myocardial perfusion imaging from today 1. Myocardial perfusion imaging revealing a small area reversible defect in the apical lateral region suggestive of ischemia in the distribution of the left circumflex artery. (The SDS score was 1). 2. LV wall motion analysis revealed diffuse hypokinesia of the left ventricle 3. LV ejection fraction was estimated to be 34%. 4. Mildly dilated LV cavity with an end-systolic volume of 67 ml. No similar previous studies are available for comparison A&P Assessment and plan (1) New onset of congestive heart failure: Patient seems to be clinically compensated at this time. May continue on the current treatment. Patient may be started on p.o. Lasix and potassium. (2) Nonischemic congestive cardiomyopathy: Patient may benefit from Entresto. Since she is wanting to go home today, it may be appropriate to start with losartan 25 mg daily. The Entresto may be started as a nurs as an outpatient (3) Abnormal cardiovascular stress test: I discussed the patient in detail the implication of the test findings. The area of ischemia is very small. Since she has no chest pain, it may be appropriate to continue on the current treatment. May need to consider cardiac catheterization, if she develops recurrent heart failure or any chest pain. Because of the abnormal kidney function, she carries a high risk for contrast- induced nephropathy. These issues were discussed with the patient detail which is understood well. (4) Acute kidney injury: Currently the kidney function seems to be stable. May continue on the current measures. (5) Anemia: The etiology of the anemia is not clear. This may need to be worked up as an outpatient. Qualifiers: Anemia type: unspecified type Qualified Code(s): D64.9 - Anemia, unspecified Plan Patient is wanting to go home badly today. Since she seems to be otherwise stable, from a cardiac standpoint, it may be appropriate to discharge home. She needs to be seen in the office in 1 to 2 weeks. I may start her on losartan 25 mg p.o. now and daily. Other medications may be continued. Thank you for the opportunity to evaluate this patient make these recommendations Consult Attestations 2 Medical Necessity Statement: Deferred to the primary Coding Level of Care Code 54177 Diagnoses New onset of congestive heart failure I50.9 Nonischemic congestive cardiomyopathy I42.0 Abnormal cardiovascular stress test R94.39 Acute kidney injury N17.9 Anemia, unspecified type D64.9 Anemia type: unspecified type
[2024-03-28 16:38] LABS: Troponin 5 6HR 22.93 ng/L (0-10)
[2024-03-28 16:46] LABS: Troponin 5 6HR Delta -0.07 ng/L (0-12)
--- NOTE | 2024-03-28 17:07 | P.DS_ITS ---
Discharge Providers Date of Admission: 03/27/24 12:10 Date of Discharge: March 28, 2024 Attending Provider at Admission: Sean Borden MD Attending Provider at Discharge: Sean Borden MD Primary Care Provider: April Her MD Diagnoses at Discharge Discharge Diagnosis (1) New onset of congestive heart failure: Status: Acute (2) Nonischemic congestive cardiomyopathy: Status: Acute (3) Abnormal cardiovascular stress test: Status: Acute (4) Acute kidney injury: Status: Acute (5) Anemia: Status: Acute Qualifiers: Anemia type: unspecified type Qualified Code(s): D64.9 - Anemia, unspecified Reason for Visit Reason for Visit: cough, sent by [facility] Hospital Course 63-year female who was admitted for management evaluation of new onset CHF, echo showed mildly reduced EF, I requested stress test which showed reversible defect circumflex territory, I requested Dr. Don to evaluate her, patient is very anxious and wanting to go home and get outpatient evaluation, Dr. Don is recommending optimization of reduced ejection fraction heart failure such as losartan low-dose before adding Entresto outpatient, patient is also requiring 3 L of oxygen which is new, she qualified for 3 L of oxygen before discharge, she does not want to stay for memorial weekend in the hospital Dr. Don has cleared her to go home. Clinically she is doing much better, she did well with diuresis. D-dimer was high, CT chest did not show any signs of PE. Creatinine seems to be around baseline. Her lactic acid was likely related to albuterol, s he was diagnosed with sepsis related to pneumonia I will prescribe antibiotics at the time of discharge. Physical Exam Narrative: Awake and alert On 3 L GCS 15 Nonfocal neuroexam Pleasant cooperative Discharge Data Studies Completed and Pending Completed Studies During Hospitalization Category Date Time Status CTA chest [CT angio chest PE protcl [id number]] Stat Cat Scan 03/26/24 16:59 Completed CXRP [XR chest 1V portable [id number]] Stat Exams 03/26/24 15:13 Completed NM nicole perf SPECT r/s* [id number] Routine Nuc Med 03/28/24 06:45 Completed CV. echo complete* [id number] Routine Ultrasound 03/26/24 21:31 Completed Pending at discharge Category Date Time Status Sestamibi Stress Test Request Routine Exams 03/29/24 06:00 Ordered Basic Metabolic Panel AM LABS Lab 03/29/24 04:00 Ordered Blood Culture Stat Lab 03/26/24 16:12 Results Complete Blood Count w/Auto AM LABS Lab 03/29/24 04:00 Ordered Radiology Impressions Chest X-Ray 03/26/24 15:13 Impression: 1. Bilateral lower lobe patchy opacities which probably represent pneumonia, atelectasis and a left pleural effusion. 2. Cardiomegaly. Chest CTA 03/26/24 16:59 IMPRESSION: 1. No CT findings of pulmonary embolus. 2. Pfsu-ln-hhkzzwzn posterior pleural effusions bilaterally, more prominent about the lower chest. Subjacent atelectasis within the lower lungs, with inability to exclude some component of basilar infiltrate. Lung windows demonstrate small amount of nonspecific scattered ground-glass opacity as well. Consider CHF or pneumonia. 3. Incidental finding of a partially visualized subcutaneous soft tissue mass mid to upper right neck with predominant negative Hounsfield measurements or fat density. Laboratory Results WBC 8.46 10^3/uL (3.29-11.43) 03/28/24 04:50 RBC 3.53 10^6/uL (3.85-5.65) L 03/28/24 04:50 Hgb 9.10 g/dL (11.27-16.99) L 03/28/24 04:50 Hct 28.8 % (36-47) L 03/28/24 04:50 MCV 81.6 fl (85-98) L 03/28/24 04:50 MCH 25.8 pg (27-33) L 03/28/24 04:50 MCHC 31.6 g/dL (30-55) 03/28/24 04:50 RDW 15.0 % (12.1-15.1) 03/28/24 04:50 Plt Count 441 10^3/cmm (157-399) H 03/28/24 04:50 MPV 9.9 fL (7.4-10.4) 03/28/24 04:50 Neut % (Auto) 66.1 % 03/28/24 04:50 Lymph % (Auto) 22.9 % 03/28/24 04:50 [place] % (Auto) 7.7 % 03/28/24 04:50 Eos % (Auto) 1.3 % 03/28/24 04:50 Baso % (Auto) 1.3 % 03/28/24 04:50 Neut # (Auto) 5.59 10^3/uL (1.8-7.7) 03/28/24 04:50 Lymph # (Auto) 1.9 10^3/uL (0.8-4.8) 03/28/24 04:50 [place] # (Auto) 0.7 10^3/uL (0.2-0.9) 03/28/24 04:50 Eos # (Auto) 0.1 10^3/uL (0.0-0.8) 03/28/24 04:50 Baso # (Auto) 0.1 10^3/uL (0.0-0.1) 03/28/24 04:50 Nucleated RBC % (auto) 0.7 % 03/28/24 04:50 Nucleated RBCs # 0.1 /100WBC 03/28/24 04:50 D-Dimer 3.64 ug/mLFEU (0-0.59) H 03/26/24 16:12 Specimen Type Arterial 03/26/24 16:55 Sample Site Radial, right 03/26/24 16:55 ABG pH 7.46 (7.35-7.45) H 03/26/24 16:55 ABG pCO2 27.3 mmHg (35-45) L 03/26/24 16:55 ABG pO2 55.4 mmHg (80.0-100.0) L 03/26/24 16:55 ABG PO2/FiO2 Ratio 0 03/26/24 16:55 ABG HCO3 19.2 mmol/L (22-26) L 03/26/24 16:55 ABG Base Excess -3.7 mmol/L (-2.0-2.0) L 03/26/24 16:55 Kip Test Pos 03/26/24 16:55 Hematocrit 33.7 % (37-47) L 03/26/24 16:55 O2 Delivery Device Nc 03/26/24 16:55 O2 Liters/Min 4.0 % 03/26/24 16:55 FiO2 36.0 % 03/26/24 16:55 Manager Industrial ID glc 03/26/24 16:55 Sodium 133 mmol/L (136-145) L 03/28/24 04:50 Potassium 3.6 mmol/L (3.5-5.1) 03/28/24 04:50 Chloride 96 mmol/L (98-107) L 03/28/24 04:50 Carbon Dioxide 21 mmol/L (22-29) L 03/28/24 04:50 Anion Gap 19.6 (5-19) H 03/28/24 04:50 BUN 19 mg/dL (8-23) 03/28/24 04:50 Creatinine 1.4 mg/dL (0.5-0.9) H 03/28/24 04:50 GFR Calculation 37.9 mL/min (90-130) L 03/28/24 04:50 Glucose 185 mg/dL (65-115) H 03/28/24 04:50 POC Glucose 174 mg/dL (70-110) H 03/28/24 11:12 Estimat Average Glucose 143 03/27/24 05:44 Hemoglobin A1c 6.6 % (4.0-6.0) H 03/27/24 05:44 Calculated Osmolality 283 mOsm/kg (285-295) L 03/28/24 04:50 Lactic Acid 2.6 mmol/L (0.5-2.2) H 03/26/24 16:12 Lactic Acid (Sepsis) 4.4 mmol/L (0.5-2.2) H* 03/26/24 19:12 Calcium 8.3 mg/dL (8.5-10.5) L 03/28/24 04:50 Magnesium 1.3 mg/dL (1.7-2.3) L 03/27/24 05:44 Total Bilirubin 0.2 mg/dL (0.15-1.2) 03/26/24 16:12 AST 15 U/L (0-32) 03/26/24 16:12 ALT 8 U/L (0-33) 03/26/24 16:12 Alkaline Phosphatase 74 U/L (35-105) 03/26/24 16:12 Troponin T Baseline 23 ng/L (0-10) H 03/28/24 08:36 Troponin T 120 Minute 23.11 ng/L (0-10) H 03/28/24 10:31 Delta Troponin T 0.11 ABS# (0-10) 03/28/24 10:31 Troponin T Hi Sens 6Hr 22.93 ng/L (0-10) H 03/28/24 15:51 Troponin T Hi Sens 6Hr Delta -0.07 ng/L (0-12) L 03/28/24 15:51 C-Reactive Protein 17.9 mg/L (0.0-4.9) H 03/27/24 05:44 NT-Pro-B Natriuret Pep 3382 pg/mL (0-125) H 03/26/24 16:12 Total Protein 7.7 g/dL (6.6-8.7) 03/26/24 16:12 Albumin 4.2 g/dL (3.5-5.2) 03/26/24 16:12 Globulin 3.5 g/dL (1.3-4.6) 03/26/24 16:12 Procalcitonin 0.42 ng/mL (0-0.5) 03/26/24 19:12 TSH 2.84 uIU/mL (0.27-4.20) 03/26/24 19:12 Adenovirus (PCR) Not detected (NOT DETECT) 03/26/24 17:06 C. pneumoniae DNA (PCR) Not detected (NOT DETECT) 03/26/24 17:06 Coronavirus 229E (PCR) Not detected (NOT DETECT) 03/26/24 17:06 Human Metapneumovir PCR Not detected (NOT DETECT) 03/26/24 17:06 Influenza A (H1) PCR Not detected (NOT DETECT) 03/26/24 17:06 Influ A (H1/09) PCR Not detected (NOT DETECT) 03/26/24 17:06 Influenza A (H3) PCR Not detected (NOT DETECT) 03/26/24 17:06 Influenza Type A (PCR) Not detected (NOT DETECT) 03/26/24 17:06 Influenza Type B (PCR) Not detected (NOT DETECT) 03/26/24 17:06 M. pneumoniae (PCR) Not detected (NOT DETECT) 03/26/24 17:06 Parainfluenza 1 (PCR) Not detected (NOT DETECT) 03/26/24 17:06 Parainfluenza 2 (PCR) Not detected (NOT DETECT) 03/26/24 17:06 Parainfluenza 3 (PCR) Not detected (NOT DETECT) 03/26/24 17:06 Parainfluenza 4 (PCR) Not detected (NOT DETECT) 03/26/24 17:06 RSV Type A (PCR) Not detected (NOT DETECT) 03/26/24 17:06 RSV Type B (PCR) Not detected (NOT DETECT) 03/26/24 17:06 Entero/Rhino (PCR) Not detected (NOT DETECT) 03/26/24 17:06 SARS-CoV-2 (PCR) Not detected (NOT DETECT) 03/26/24 17:06 Vitals Last Vital Signs Temp 98.2 F 03/28/24 15:46 Pulse 97 03/28/24 15:46 Resp 16 03/28/24 15:46 BP 133/92 03/28/24 15:46 Pulse Ox 95 03/28/24 15:46 O2 Del Method Nasal Cannula 03/28/24 15:46 O2 Flow Rate 3 03/28/24 15:46 Discharge Plan Discharge Patient Disposition: Home Condition: Stable Prescriptions: New azithromycin 250 mg Tablet 500 mg PO DAILY Qty: 5 0RF losartan 50 mg Tablet 25 mg PO DAILY Qty: 60 0RF albuterol sulfate 90 mcg/actuation HFA aerosol inhaler 2 inh inhalation Q8H PRN (Reason: shortness of breath or wheezing) Qty: 8.5 3RF carvedilol [Coreg] 3.125 mg tablet 3.125 mg PO BID Qty: 60 2RF Rx Instructions: must administer with a meal/food furosemide [Lasix] 20 mg tablet 20 mg PO DAILY Qty: 30 2RF potassium chloride 10 mEq tablet extended release 10 meq PO DAILY Qty: 30 3RF Continued hydroxyzine HCl 50 mg tablet 50 mg PO QID nifedipine 30 mg tablet extended release 24hr 30 mg PO DAILY quetiapine 25 mg tablet 25 mg PO QPM venlafaxine 150 mg capsule,extended release 24hr 150 mg PO DAILY omeprazole 40 mg capsule,delayed release(DR/EC) 40 mg PO BID metformin 750 mg Tablet Extended Release 24 Hr 750 mg PO BID Discontinued gabapentin 300 mg capsule 300 mg PO TID glipizide 10 mg tablet 10 mg PO DAILY Discharge Orders: Discharge Order (Routine); Ordered 03/28/24 Ordered By: Sean Borden Other Ambulatory Orders: DME: Oxygen (Order) Location: None Selected Ordered By: Sean Borden Referrals: April Her MD [Primary Care Provider] - Julio Don MD [Physician] - 1 week Discharge Diet: Cardiac Discharge Activity: Increase activity as tolerated Patient Instructions: Opioid Safety Activity Restrictions/Additional Instructions: Appointment the [facility] in 1 to 2 weeks to be seen with his practitioner Appointment with me in the office in 1 month Need to repeat a BMP in 1 week Discharge Attestations Time Spent in Discharge Care*: greater than 30 min Quality Metrics Clinical Quality Measures [ No reported AMI, CVA or VTE this stay] Coding Level of Care Code Acute Code for Chg Fwd Diagnoses New onset of congestive heart failure I50.9 Nonischemic congestive cardiomyopathy I42.0 Abnormal cardiovascular stress test R94.39 Acute kidney injury N17.9 Anemia, unspecified type D64.9 Anemia type: unspecified type
== END 2024-03-28 17:45 | disposition home or self-care (01) | DRG 871 ==
LOC: ER 19:56 → MEDSURG 20:36
PROVIDERS: Admitting Provider Internal Medicine; Emergency Provider Nurse Practitioner Family; PCP Family Medicine; Visit Provider Internal Medicine
DX: A41.9 Sepsis, unspecified organism (principal); I50.21 Acute systolic (congestive) heart failure; J18.9 Pneumonia, unspecified organism; N17.9 Acute kidney failure, unspecified; I13.0 Hypertensive heart and chronic kidney disease with heart failure and stage 1 through stage 4 chronic kidney disease, or unspecified chronic kidney disease; E87.20 Acidosis, unspecified; I42.8 Other cardiomyopathies; N18.9 Chronic kidney disease, unspecified; E11.22 Type 2 diabetes mellitus with diabetic chronic kidney disease; F32.A Depression, unspecified; E11.42 Type 2 diabetes mellitus with diabetic polyneuropathy; D63.1 Anemia in chronic kidney disease; E87.6 Hypokalemia; E83.42 Hypomagnesemia; R09.02 Hypoxemia; E78.5 Hyperlipidemia, unspecified; Z11.52 Encounter for screening for COVID-19; Z79.84 Long term (current) use of oral hypoglycemic drugs; R94.39 Abnormal result of other cardiovascular function study
CPT/HCPCS: 36415; 36416; 36600; 71045; 71275; 78452; 80048; 80053; 82803; 82962; 83036; 83605; 83735; 83880; 84145; 84443; 84484; 85025; 85378; 86140; 87040; 87486; 87581; 87633; 93005; 93017; 93306; 94640; 94760; 96372; 96375; A9500; G0378; J0456; J0696; J1650; J1940; J2405; J2785; J3475; J7030; J7050; Q0144; Q9967

== ENCOUNTER → 2024-04-29 14:08 | Outpatient (BNVA) | payer OTHER, SELFPAY | PROVIDERS: PCP Family Medicine; Visit Provider Nurse Practitioner Family | DX: I50.20 Unspecified systolic (congestive) heart failure (principal) | CPT/HCPCS: 80048 ==

== ENCOUNTER → 2024-09-05 11:01 | Outpatient (BNVA) | payer MEDICARE, SELFPAY | PROVIDERS: PCP Family Medicine; Visit Provider Nurse Practitioner Family | DX: I11.0 Hypertensive heart disease with heart failure (principal); I50.22 Chronic systolic (congestive) heart failure; I42.8 Other cardiomyopathies | CPT/HCPCS: 80048; 83880; 99214 ==

== ENCOUNTER → 2024-09-23 10:52 | Outpatient (BNVA) | payer MEDICARE, SELFPAY | PROVIDERS: PCP Family Medicine | DX: M25.622 Stiffness of left elbow, not elsewhere classified (principal); M25.612 Stiffness of left shoulder, not elsewhere classified; W19.XXXA Unspecified fall, initial encounter | CPT/HCPCS: 73030; 73080 ==

== ENCOUNTER → 2024-10-07 09:08 | Outpatient (BNVA) | payer MEDICARE, SELFPAY | PROVIDERS: PCP Family Medicine; Visit Provider Nurse Practitioner Family | DX: I50.22 Chronic systolic (congestive) heart failure (principal); R00.0 Tachycardia, unspecified; I95.9 Hypotension, unspecified | CPT/HCPCS: 99214 ==

== ENCOUNTER 2024-10-13 12:12 | Outpatient (CLI) | payer MEDICARE, SELFPAY ==
[2024-10-13 13:23] LABS: Anion Gap 21.3 (5-19); Blood Urea Nitrogen 17 mg/dL (8-23); Calcium 9.7 mg/dL (8.5-10.5); Carbon Dioxide 19 mmol/L (22-29); Chloride 98 mmol/L (98-107); Glomerular Filtration Rate 45.1 mL/min (90-130); Glucose 124 mg/dL (65-115); NT Pro B Type Natriuretic Pept 1748 pg/mL (0-125); Osmolality Calculated 279 mOsm/kg (285-295); Potassium 5.3 mmol/L (3.5-5.1); Sodium 133 mmol/L (136-145)
== END 2024-10-13 12:13 | disposition home or self-care (01) ==
LOC: LAB 12:13
PROVIDERS: PCP Family Medicine; Visit Provider Nurse Practitioner Family
DX: I50.9 Heart failure, unspecified (principal); I50.22 Chronic systolic (congestive) heart failure
CPT/HCPCS: 36415; 80048; 83880

== ENCOUNTER 2024-10-21 08:24 | Outpatient (CLI) | payer MEDICARE, SELFPAY ==
--- NOTE | 2024-10-21 | MM_ITS ---
WS: [id number] Bilateral screening 3D tomosynthesis digital mammogram, 10/21/2024 8:26 AM Clinical Data: ANNUAL SCREENING Comparison: 10/24/2022, 08/31/2020, 02/04/2020, 09/04/2019, 04/06/2017, 07/10/2012, 03/02/2011, 02/21/2011. Findings: No spiculated masses or clustered calcifications are seen. There are no secondary signs of carcinoma . MM/MM scr BI tomosynthesis [id number] Impression: Negative bilateral mammogram unchanged. Recommend annual screening mammograms. BIRADS: 1 - Negative. FOLLOW UP: 1 Year Follow-up DENSITY: There are scattered areas of fibroglandular density. The CAD mold checker was used
== END 2024-10-21 08:25 | disposition home or self-care (01) ==
LOC: RAD 08:25
PROVIDERS: PCP Family Medicine; Visit Provider Family Medicine
DX: Z12.31 Encounter for screening mammogram for malignant neoplasm of breast (principal)
CPT/HCPCS: 77063; 77067

== ENCOUNTER → 2024-11-07 10:38 | Outpatient (BNVA) | payer MEDICARE, SELFPAY | PROVIDERS: PCP Family Medicine; Visit Provider Nurse Practitioner Family | DX: I11.0 Hypertensive heart disease with heart failure (principal); I50.22 Chronic systolic (congestive) heart failure | CPT/HCPCS: 36415; 80048; 83880; 99214 ==

== ENCOUNTER → 2024-12-19 08:41 | Outpatient (BNVA) | payer MEDICARE, SELFPAY | PROVIDERS: PCP Family Medicine; Visit Provider Orthopaedic Surgery | DX: M75.102 Unspecified rotator cuff tear or rupture of left shoulder, not specified as traumatic (principal); M25.512 Pain in left shoulder | CPT/HCPCS: 99204 ==

== ENCOUNTER 2025-01-13 06:52 | Outpatient (CLI) | payer MEDICARE, SELFPAY ==
--- NOTE | 2025-01-13 07:19 | MR_ITS ---
WS: [id number] MRI LEFT SHOULDER HISTORY: POSSIBLE ROTATOR CUFF TEAR COMPARISON: Radiograph 09/23/2024 TECHNIQUE: Multiplanar sequences of the shoulder joint are submitted. Quality this examination is significantly compromised by motion artifact on numerous sequences. Moderate AC joint hypertrophy. There is fluid in the subacromial and subdeltoid bursa and surrounding the humeral head. Humeral head is high riding abutting the undersurface of the acromion. Supraspinatus tendon is completely torn and retracted with a large fluid gap. Tendon is retracted medial humeral head. The remaining tendons are much more difficult to visualize due to extensive motion. Of significance is edema and atrophy of the supraspinatus and infraspinatus muscles. The quadrilateral space cannot be well identified or evaluated for mass. Subscapularis tendon is being displaced by edema. Biceps tendon appears medial to the subscapularis tendon consistent with dislocation. No marrow edema or fracture. Labrum not well visualized. MR/MR shoulder LT wo con* [id number] IMPRESSION: 1. Quality of this examination is significantly compromised by motion artifact . 2. Muscle edema and atrophy involving the supraspinatus and infraspinatus tend ons. Likely due to rotator cuff denervation syndrome. May be secondary to traum a. Cannot identify a mass in the quadrilateral space due to the motion. 3. Complete tear of the supraspinatus tendon with retraction. 4. Biceps tendon not present in the bicipital groove. Appears dislocated and m edial to the subscapularis tendon. 5. Moderate AC joint hypertrophy. 6. Infraspinatus and subscapularis tendons are poorly visualized.
== END 2025-01-13 06:53 | disposition home or self-care (01) ==
PROVIDERS: PCP Family Medicine; Visit Provider Orthopaedic Surgery
DX: M75.102 Unspecified rotator cuff tear or rupture of left shoulder, not specified as traumatic (principal); M62.512 Muscle wasting and atrophy, not elsewhere classified, left shoulder; R93.6 Abnormal findings on diagnostic imaging of limbs
CPT/HCPCS: 73221

== ENCOUNTER → 2025-01-20 07:51 | Outpatient (BNVA) | payer MEDICARE, SELFPAY | PROVIDERS: PCP Family Medicine; Visit Provider Orthopaedic Surgery | DX: Z01.818 Encounter for other preprocedural examination (principal); M75.102 Unspecified rotator cuff tear or rupture of left shoulder, not specified as traumatic; M12.812 Other specific arthropathies, not elsewhere classified, left shoulder | CPT/HCPCS: 36415; 80053; 81001; 85025; 99213 ==

== ENCOUNTER → 2025-01-22 10:37 | Outpatient (BNVA) | payer MEDICARE, SELFPAY | PROVIDERS: PCP Family Medicine; Visit Provider Internal Medicine Cardiovascular Disease | DX: R07.9 Chest pain, unspecified (principal); R00.0 Tachycardia, unspecified; I45.10 Unspecified right bundle-branch block; I42.0 Dilated cardiomyopathy; I50.22 Chronic systolic (congestive) heart failure; I10 Essential (primary) hypertension; N18.32 Chronic kidney disease, stage 3b; D64.9 Anemia, unspecified | CPT/HCPCS: 93005; 99214 ==

== ENCOUNTER 2025-02-18 05:52 | Day surgery (SDC) | payer MEDICARE, SELFPAY ==
[2025-02-18] VITALS (10 sets, daily range): BP systolic 101–140; BP diastolic 70–97; PULSE 97–110; RESP 14–24; TEMP 36.1–36.6; O2SAT 93–100; BMI 24.4
[2025-02-18 06:26] LABS: Glucose Point of Care 201 mg/dL (70-110)
[2025-02-18] MEDS: sodium chloride 0.9% 1,000 ML 30 ML IV (06:29)
--- NOTE | 2025-02-18 06:56 | W.PM.OPSUD ---
Surgery/Procedure H&P Update DATE OF PROCEDURE: February 18, 2025 DATE H&P PERFORMED: 02/10/25 H&P UPDATE INFORMATION: I have reviewed H&P completed within last 30 days, I have examined patient prior to procedure, No changes to prior documentation and Risks and benefits of the procedure reviewed PREOP DIAGNOSIS: Internal derangement left shoulder PRIMARY INDICATION FOR PROCEDURE: Pain possible rotator cuff tear PLANNED PROCEDURE: Operation Date: 02/18/25 07:00 Proposed Procedures p Left Shoulder Diagnostic and Surgical Arthroscopy(Left) - Ashish Menchaca MD s Rotator Cuff Repair(Left) - Ashish Menchaca MD
[2025-02-18] MEDS: clindamycin 600 MG/50 ML PREMIX 100 MG IV (06:57)
--- NOTE | 2025-02-18 07:43 | ANES.PREANE2 ---
Pre-Anesthetic Assessment Height/Weight: Height 1.5 m Weight 54.885 kg Temp Pulse Resp BP Pulse Ox O2 Del Method 97.8 F 110 H 18 136/90 100 Room Air 02/18/25 05:55 02/18/25 05:55 02/18/25 05:55 02/18/25 05:55 02/18/25 05:55 02/18/25 06:19 Preop Diagnosis: Internal derangement left shoulder Operation Date: 02/18/25 07:00 Proposed Procedures p Left Shoulder Diagnostic and Surgical Arthroscopy(Left) - Ashish Menchaca MD s Rotator Cuff Repair(Left) - Ashish Menchaca MD Familial anesthetic complications: PONV Was Beta Jere taken within 24 hours: Yes Was Clonidine taken within 24 hours: N/A Last intake: Intake Last Liquid Date 02/17/25 Last Liquid Time 20:00 Last Solid Date 02/17/25 Last Solid Time 20:00 Social No alcohol and No tobacco Exam alert, oriented x 3, clear to auscultation bilaterally and regular rate & rhythm Airway Submandibular: within normal limits Cervical ROM: within normal limits Mallampati: Class II Dentition: false Comments: Comments: Small mouth CV/HEM Anemia, Coronary Artery Disease, Congestive Heart Failure (EF 35%) and Hypertension Chronic Renal Insufficiency GI Gastroesophageal Reflux Disease Metabolic Diabetes Mellitus Neuropsych Neuropathy Anesthetic Plan ASA status: 3 Anesthesia: General and Regional (specify below) (Left interscalene blk) Medications/Allergies Home Medications ?Medication ?Instructions ?Recorded ?Confirmed ?Last Taken ?Type metformin 750 mg tablet,extended 750 mg PO BID 05/06/22 02/17/25 02/17/25 History release 24 hr omeprazole 40 mg capsule,delayed 40 mg PO BID 05/06/22 02/17/25 03/26/24 History release venlafaxine 150 mg 150 mg PO DAILY 05/06/22 02/17/25 02/17/25 History capsule,extended release 24 hr carvedilol 3.125 mg tablet (Coreg) 3.125 mg PO BID #180 tabs 10/10/24 02/17/25 02/17/25 Rx sacubitril 49 mg-valsartan 51 mg 1 tab PO BID #180 tabs 11/07/24 02/17/25 02/17/25 Rx tablet gabapentin 300 mg capsule 300 mg PO TID 01/22/25 02/17/25 02/17/25 History atorvastatin 20 mg tablet 20 mg PO QDAY 02/10/25 02/17/25 02/17/25 History quetiapine 25 mg tablet 25 mg PO .qhs 02/10/25 02/17/25 02/17/25 History Allergies Allergy/AdvReac Type Severity Reaction Status Date / Time codeine Allergy ALGY-Swell Verified 02/17/25 12:36 Lip/Tongue/Throat diphenhydramine (From Allergy ADR-Agitate Verified 02/17/25 12:36 Benadryl) d Penicillins Allergy ALGY-Rash Verified 02/17/25 12:36 Sulfa (Sulfonamide Allergy ALGY-Rash Verified 02/17/25 12:36 Antibiotics) Current Medications Generic Name Dose Route Start Last Admin Trade Name Freq PRN Reason Stop Dose Admin Sodium Chloride 1,000 mls @ 30 mls/hr 02/18/25 06:00 02/18/25 06:29 Sodium Chloride 0.9% IV 02/19/25 05:59 30 mls/hr .Q24H MILEY Administration PFSH Anesthesia Medical History Nonischemic congestive cardiomyopathy New onset of congestive heart failure Acute kidney injury HTN (hypertension) Abnormal cardiovascular stress test Sepsis Frycy-gc-wtqwjbr kidney injury Pneumonia Anemia Acute renal failure Duodenitis Esophagitis Esophageal thickening Nephrolithiasis Depression Diabetic neuropathy Diabetes Surgical History H/O lithotripsy Family History Mother Leukemia Father CAD (coronary artery disease) Kidney stones Chronic kidney disease (CKD) Social History Smoking and tobacco/nicotine status: never used tobacco/nicotine Alcohol intake: never Substance/Drug Use: never Lives independently: Yes Household members: significant other Marital status: / Current occupational status: retired Data Anesthesia Cardiac Studies: Echocardiogram 03/26/24 Sestamibi Stress Test (Cardiology) 03/28/24 Anesthesia Procedures Nerve Block Nerve Block 1: Main Anesthesia: general anesthesia Time Out Performed: Yes Consent: requested by attending/covering physician Nerve block location: interscalene (left) Anesthesia monitors applied: pulse oximetry, EKG, BP cuff and oxygen Nerve block position: semi sitting Anesthetic Used: ropivicaine 0.5% Amount of anesthesia used (mL): 30 Ultrasound used to: recognize landmarks and visualize and ID brachial plexus Nerve Stimulator Used?: No Interscalene/Femoral BLK: 2 stimuplex 22 g needle used for position and inplane approach Injection: neg aspiration of heme Patient Tolerated Procedure: well Complications: none
--- NOTE | 2025-02-18 08:47 | PM.OP ---
Operative Report Date of procedure: February 18, 2025 Surgeon: Ashish Menchaca MD Procedure: Preop diagnosis: internal derangement of the left shoulder with torn rotator cuff Postoperative diagnosis: Degenerative tearing anterior half of labrum degenerative changes of the biceps tendon, torn rotator cuff, impingement of acromion and distal clavicle, hypertrophic bursa Procedure: Diagnostic left shoulder arthroscopy with labral debridement biceps tendon debridement rotator cuff debridement. Mini open acromioplasty, distal clavicle resection, rotator cuff repair, partial bursectomy Surgeon: Ashish Menchaca MD Conflict Resolution Professional: ANDREA Otero's assistance was necessary for positioning the patient, assistance during the procedure itself, closure of the wound, placement of dressings and abduction pillow, and transported fromTo the recovery room Anesthesia: General With preoperative scalene block EBL: 5 cc Complications: None Indications: Corinne is a 64-year-old white female was referred in for evaluation of painful left shoulder. Patient sustained an injury in August 2020 for by landing directly on the shoulder. She was seen by her primary care around that time and an MRI was ordered however it was never completed. She was now referred over the orthopedic clinic for further evaluation and treatment. On clinical exam was found that she had a positive drop arm test and evidence of possible rotator cuff tear as well as crepitation possibly indicating labral injury. Patient was scheduled for an MRI and returned once this was completed. MRI demonstrated a tear of the supraspinatus tendon on into the infraspinatus tendon with about 50% retraction. Also displacement of the biceps tendon as well as degenerative changes of the anterior labrum. Therefore at this time she was offered a diagnostic shoulder arthroscopy with all indicated procedures including a mini open rotator cuff repair. All risk benefits treatment alternatives were discussed with her and she is agreeable to proceed with surgical intervention at this time. Procedure: After obtaining her consent patienhad a scalene block administered in the preop holding area. Patient was then taken to the operating room and placed on the operative table in a supine position and general anesthetic administered. Once good anesthesia was achieved patient was placed up in a beachchair position with appropriate padding and securing her to the bed. Left upper extremity and shoulder were prepped and draped in usual fashion. After surgical timeout standard portals made with #11 blade to the posterior aspect of the glenohumeral joint line. Camera cannulas placed within. Anterior working portal was also placed just inferior to the clavicle in line with the posterior portal. Probing of the area found there was quite a bit of fraying and tearing of the anterior labrum from this 11 o'clock position all the way down to the 7 o'clock position. This entire area was debrided with mechanical shaver down to stable cartilaginous space. Tearing of the undersurface of the biceps tendon was also identified but consistent less than 25% of his thickness this too was debrided with mechanical shaver. It was evident that the biceps tendon was displaced. Camera cannulas removed at this point. Many open procedures then proceeded with. Longitudinal incision made over the anterior aspect of the acromion and off the anterior lateral corner. Sharp dissection taken on down to subcutaneous tissues and electrocautery used for hemostasis. Dissection was done electrocautery down to remove the deltoid from the anterior acromion as well as the distal clavicle. Both these were found to have spurring and undersurface impinging into the rotator cuff and humeral head. Using a microsagittal saw cranioplasty was undertaken and bone was removed with a rongeur. Also distal clavicle resection was done 2. Area was decompressed adequately. Hypertrophic bursa that was scarred into the area was now debrided out of the area exposing the tear of the rotator cuff. Rotator cuff was controlled with Allis clamps and a Ennis scissor and blunt fashion was used to spreading action to release any adhesions along the course of the rotator cuff until adequate length could be brought out onto it back to its insertion notes. At this point in a stepwise fashion three 2.9 mm juggernaut anchors were placed each of these double armed. Subsequently in a horizontal mattress type fashion the rotator cuff was repaired back to its insertion. Attempts were made to try and pull the biceps tendon back up to the bicipital groove but it was unobtainable at this time. Since supplemental sutures, [id number], from the suture anchors were used to further repair the rotator cuff tear to the lateral structures. Once is achieved shoulders washed coachman sterile ligation. Deltoid is reapproximated 0 Vicryl [id number] sutures back to the anterior acromion. Subcutaneous tissue reapproximated Vicryl ruptured sutures. The skin was closed with subcuticular stitch. Wounds are clean and dry dressed with Adaptic dressing sterile gauze dressing ABDs and adhesive tape. Patient placed in abduction pillow and sling. Patient was then awakened transferred to cover room in stable condition
--- NOTE | 2025-02-18 09:29 | PC.NURSE ---
0850 - noted slight left eye drooping - anesthesia notified and stated side effect from interscaline block - no other deficits noted - pt alert, orientated and denies pain
--- NOTE | 2025-02-18 14:11 | ANE.PACU2 ---
Inpatient post-anesthesia follow up: Airway intact: Yes Vital signs: Temperature 97.7 F Pulse Rate 97 Respiratory Rate 17 Blood Pressure 116/76 Pulse Oximetry 94 Oxygen Delivery Me thod Room Air Oxygen Flow Rate Fraction of Inspir ed Oxygen Hydration adequate: Yes Nausea and vomiting: No Pain level: 1 Mental status: Baseline
== END 2025-02-18 10:26 | disposition home or self-care (01) ==
PROVIDERS: PCP Family Medicine; Visit Provider Orthopaedic Surgery
PROC: (CPT 29805; principal; 2025-02-18 07:00)
PROC: 0LQ24ZZ Repair Left Shoulder Tendon, Percutaneous Endoscopic Approach (ICD-10-PCS; CPT 29827; 2025-02-18 07:00)
DX: M75.102 Unspecified rotator cuff tear or rupture of left shoulder, not specified as traumatic (principal); M75.42 Impingement syndrome of left shoulder; S43.492A Other sprain of left shoulder joint, initial encounter; K21.9 Gastro-esophageal reflux disease without esophagitis; I13.0 Hypertensive heart and chronic kidney disease with heart failure and stage 1 through stage 4 chronic kidney disease, or unspecified chronic kidney disease; I25.10 Atherosclerotic heart disease of native coronary artery without angina pectoris; I50.9 Heart failure, unspecified; E11.40 Type 2 diabetes mellitus with diabetic neuropathy, unspecified; N18.9 Chronic kidney disease, unspecified; E11.22 Type 2 diabetes mellitus with diabetic chronic kidney disease; Z79.899 Other long term (current) drug therapy; Z79.84 Long term (current) use of oral hypoglycemic drugs; Z88.5 Allergy status to narcotic agent; Z88.0 Allergy status to penicillin; Z88.2 Allergy status to sulfonamides; X58.XXXA Exposure to other specified factors, initial encounter
CPT/HCPCS: 23412; 23120; 23130; 29822; 36416; 82962; C1713; J1100; J2371; J2405; J2704; J2795; J3010; J3490; J7030; J9999; P9045

== ENCOUNTER → 2025-03-05 09:56 | Outpatient (BNVA) | payer MEDICARE, SELFPAY | PROVIDERS: PCP Family Medicine; Visit Provider Orthopaedic Surgery | DX: M75.112 Incomplete rotator cuff tear or rupture of left shoulder, not specified as traumatic (principal) | CPT/HCPCS: 99024 ==

== ENCOUNTER → 2025-03-19 07:57 | Outpatient (BNVA) | payer MEDICARE, SELFPAY | PROVIDERS: PCP Family Medicine; Visit Provider Orthopaedic Surgery | DX: M75.102 Unspecified rotator cuff tear or rupture of left shoulder, not specified as traumatic (principal); M12.812 Other specific arthropathies, not elsewhere classified, left shoulder | CPT/HCPCS: 99024 ==

== ENCOUNTER 2025-03-24 08:05 | Outpatient (CLI) | payer MEDICARE, SELFPAY ==
--- NOTE | 2025-03-24 07:45 | USCV_ITS ---
Corinne Gottlieb Age: 64 Gender: F : 1960 Exam Date: 03/24/2025 08:26 Ordering Phys: Julio Don MD ([email or web address]) Technologist: Exam Location: [facility] [place] Indication: cp sob murmur BP: 107 / 70 HR: 121 Rhythm: Sinus Technical Quality: Adequate MEASUREMENTS (Male / Female) Normal Values 2D ECHO LV Diastolic Diameter PLAX 4.0 cm 4.2 - 5.9 / 3.9 - 5.3 cm IVS Diastolic Thickness 1.2 cm 0.6 - 1.0 / 0.6 - 0.9 cm IVS Systolic Thickness 1.2 cm LVPW Diastolic Thickness 1.2 cm 0.6 - 1.0 / 0.6 - 0.9 cm LVPW Systolic Thickness 1.1 cm LVOT Diameter 1.9 cm LV Ejection Fraction 2D Teich 68.2 % LV Ejection Fraction MOD 4C 52.6 % LV Ejection Fraction MOD 2C 59.5 % LV Ejection Fraction 2C AL 60.4 % LA Diameter 2.2 cm RA Systolic Volume 4C AL 16.1 ml RA Systolic Volume 4C MOD 15.1 ml LA Sys Volume AL 25.4 cm cubed LA Sys Volume Index AL 16.6 cm cubed/m squared Aorta at Sinotubular Diameter 2.0 cm M-MODE LA Ao Ratio MM 0.9 AV Cusp Separation MM 1.6 cm DOPPLER AV Peak Velocity 104.0 cm/s LVOT Peak Velocity 61.0 cm/s AV Area Cont Eq vti 1.6 cm squared AV Area Cont Eq pk 1.7 cm squared MV Peak Velocity 143.0 cm/s MV Area PHT 8.4 cm squared Mitral E to A Ratio 1.8 TV Peak Velocity 149.0 cm/s TR Peak Velocity 169.0 cm/s TR Peak Gradient 11.4 mmHg TV Peak E Velocity 112.0 cm/s PV Peak Velocity 87.0 cm/s FINDINGS Left Ventricle Left ventricular ejection fraction is estimated at 59 %. Mild left ventricular hypertrophy. No regional wall motion abnormalities. Right Ventricle The right ventricle is normal in size and function. Right Atrium The right atrium is normal in size. Left Atrium The left atrium is normal in size. Mitral Valve Trace mitral valve regurgitation. Aortic Valve Thickened aortic valve. Tricuspid Valve No gross abnormalities noted Pulmonic Valve Pulmonic valve not well visualized. Pericardium Normal pericardium without effusion. Aorta Normal ascending aorta dimension. IVC Normal inferior vena cava. CONCLUSIONS Left ventricular ejection fraction is estimated at 59 %. Mild left ventricular hypertrophy. No regional wall motion abnormalities. Trace mitral valve regurgitation. There is no pericardial effusion. There are no intracardiac masses. Normal cardiac chamber sizes. Compared to the study from 03/27/2024, there is significant improvement in the LV ejection fraction from 35- 40% to 59% Dr Julio Don MD [facility] (Electronically Signed) Final Date: 30 Mar 2025 19:33 S
== END 2025-03-24 08:06 | disposition home or self-care (01) ==
PROVIDERS: PCP Family Medicine; Visit Provider Internal Medicine Cardiovascular Disease
DX: R06.09 Other forms of dyspnea (principal); I51.7 Cardiomegaly; I35.8 Other nonrheumatic aortic valve disorders
CPT/HCPCS: 93306

== ENCOUNTER 2025-04-03 10:21 | Outpatient (RCR) | payer MEDICARE, SELFPAY | END 2025-04-04 23:59 | disposition home or self-care (01) | LOC: SPT 10:21 | PROVIDERS: PCP Family Medicine; Visit Provider Orthopaedic Surgery | DX: Z98.890 Other specified postprocedural states (principal) | CPT/HCPCS: 97161 ==

== ENCOUNTER 2025-04-05 05:00 | Outpatient (RCR) | payer MEDICARE, SELFPAY | END 2025-05-04 23:59 | disposition home or self-care (01) | LOC: SPT 05:00 | PROVIDERS: PCP Family Medicine; Visit Provider Orthopaedic Surgery | DX: Z98.890 Other specified postprocedural states (principal) | CPT/HCPCS: 97110 ==

== ENCOUNTER → 2025-04-13 09:53 | Outpatient (BNVA) | payer MEDICARE, SELFPAY | PROVIDERS: PCP Family Medicine; Visit Provider Internal Medicine Cardiovascular Disease | DX: I42.0 Dilated cardiomyopathy (principal); I13.0 Hypertensive heart and chronic kidney disease with heart failure and stage 1 through stage 4 chronic kidney disease, or unspecified chronic kidney disease; I50.22 Chronic systolic (congestive) heart failure; N18.32 Chronic kidney disease, stage 3b; R00.0 Tachycardia, unspecified; D64.9 Anemia, unspecified | CPT/HCPCS: 99214 ==

== ENCOUNTER → 2025-04-17 07:50 | Outpatient (BNVA) | payer MEDICARE, SELFPAY | PROVIDERS: PCP Family Medicine; Visit Provider Orthopaedic Surgery | DX: Z98.890 Other specified postprocedural states (principal) | CPT/HCPCS: 99024 ==

== ENCOUNTER 2025-05-05 05:00 | Outpatient (RCR) | payer MEDICARE, SELFPAY | END 2025-06-04 23:59 | disposition home or self-care (01) | LOC: SPT 05:00 | PROVIDERS: PCP Family Medicine; Visit Provider Orthopaedic Surgery | DX: Z98.890 Other specified postprocedural states (principal) | CPT/HCPCS: 97110; 99024 ==

== ENCOUNTER 2025-05-06 08:49 | Outpatient (CLI) | payer MEDICARE, SELFPAY ==
[2025-05-06 09:42] LABS: Anion Gap 21.3 (5-19); Blood Urea Nitrogen 15 mg/dL (8-23); Calcium 8.6 mg/dL (8.5-10.5); Carbon Dioxide 22 mmol/L (22-29); Chloride 100 mmol/L (98-107); Glucose 162 mg/dL (65-115); Osmolality Calculated 290 mOsm/kg (285-295); Potassium 5.3 mmol/L (3.5-5.1); Sodium 138 mmol/L (136-145)
== END 2025-05-06 08:50 | disposition home or self-care (01) ==
PROVIDERS: PCP Family Medicine; Visit Provider Internal Medicine Cardiovascular Disease
DX: I50.9 Heart failure, unspecified (principal)
CPT/HCPCS: 36415; 80048

== ENCOUNTER 2025-05-28 08:07 | Outpatient (CLI) | payer MEDICARE, SELFPAY ==
[2025-05-28 08:50] LABS: Anion Gap 24.8 (5-19); Blood Urea Nitrogen 14 mg/dL (8-23); Calcium 8.9 mg/dL (8.5-10.5); Carbon Dioxide 21 mmol/L (22-29); Chloride 94 mmol/L (98-107); Glucose 192 mg/dL (65-115); Osmolality Calculated 286 mOsm/kg (285-295); Potassium 4.8 mmol/L (3.5-5.1); Sodium 135 mmol/L (136-145)
== END 2025-05-28 08:08 | disposition home or self-care (01) ==
LOC: LAB 08:08
PROVIDERS: PCP Family Medicine; Visit Provider Internal Medicine Cardiovascular Disease
DX: N18.32 Chronic kidney disease, stage 3b (principal)
CPT/HCPCS: 36415; 80048

== ENCOUNTER → 2025-06-16 08:28 | Outpatient (BNVA) | payer MEDICARE, SELFPAY | PROVIDERS: PCP Family Medicine; Visit Provider Orthopaedic Surgery | DX: Z98.890 Other specified postprocedural states (principal) | CPT/HCPCS: 99024 ==

== ENCOUNTER → 2025-09-14 08:38 | Outpatient (BNVA) | payer MEDICARE, SELFPAY | PROVIDERS: PCP Family Medicine; Visit Provider Orthopaedic Surgery | DX: M75.02 Adhesive capsulitis of left shoulder (principal) | CPT/HCPCS: 99213 ==

== ENCOUNTER 2025-09-23 08:57 | Day surgery (SDC) | payer MEDICARE, SELFPAY ==
[2025-09-23] VITALS (13 sets, daily range): BP systolic 91–172; BP diastolic 61–107; PULSE 90–112; RESP 14–18; TEMP 36.2–36.6; O2SAT 90–100; BMI 24.0
--- NOTE | 2025-09-23 10:09 | W.PM.OPSUD ---
Surgery/Procedure H&P Update DATE OF PROCEDURE: September 23, 2025 DATE H&P PERFORMED: 09/14/25 H&P UPDATE INFORMATION: I have reviewed H&P completed within last 30 days, I have examined patient prior to procedure and No changes to prior documentation PREOP DIAGNOSIS: Frozen shoulder status post rotator cuff repair PLANNED PROCEDURE: Operation Date: 09/23/25 11:15 Proposed Procedures p LEFT Shoulder Manipulation Under Anesthesia(Left) - Ashish Menchaca MD
--- NOTE | 2025-09-23 10:31 | ANES.PREANE2 ---
Pre-Anesthetic Assessment Height/Weight: Height 4 ft 11 in Weight 119 lb Temp Pulse Resp BP Pulse Ox O2 Del Method 97.1 F L 112 H 18 144/107 100 Room Air 09/23/25 09:24 09/23/25 09:24 09/23/25 09:24 09/23/25 09:24 09/23/25 09:24 09/23/25 09:29 Preop Diagnosis: Frozen shoulder status post rotator cuff repair Operation Date: 09/23/25 11:15 Proposed Procedures p LEFT Shoulder Manipulation Under Anesthesia(Left) - Ashish Menchaca MD Was Beta Jere taken within 24 hours: Yes Was Clonidine taken within 24 hours: N/A Last intake: Intake Last Liquid Date 09/22/25 Last Liquid Time 21:00 Last Solid Date 09/22/25 Last Solid Time 19:00 Social No alcohol and No tobacco Exam alert, oriented x 3, clear to auscultation bilaterally and regular rate & rhythm Airway Submandibular: within normal limits Cervical ROM: within normal limits Mallampati: Class III Dentition: partials Anesthetic Plan ASA status: 3 Anesthesia: MAC and Regional (specify below) Other: No prior issues with anesthesia NPO since yesterday evening History of hypertension on carvedilol GERD on omeprazole Type 2 diabetes, no insulin CKD stage III Echo 03/24/2025 showing EF of 59% Plan for MAC anesthesia with peripheral nerve block Medications/Allergies Home Medications ?Medication ?Instructions ?Recorded ?Confirmed ?Last Taken ?Type metformin 750 mg tablet,extended 750 mg PO BID 05/06/22 09/22/25 09/22/25 History release 24 hr omeprazole 40 mg capsule,delayed 40 mg PO BID 05/06/22 09/22/25 09/22/25 History release venlafaxine 150 mg 150 mg PO DAILY 05/06/22 09/22/25 09/22/25 History capsule,extended release 24 hr carvedilol 3.125 mg tablet (Coreg) 3.125 mg PO BID #180 tabs 10/10/24 09/22/25 09/22/25 Rx gabapentin 300 mg capsule 300 mg PO TID 01/22/25 09/22/25 09/22/25 History atorvastatin 20 mg tablet 20 mg PO QDAY 02/10/25 09/22/25 09/22/25 History quetiapine 25 mg tablet 25 mg PO .qhs 02/10/25 09/22/25 09/21/25 History Allergies Allergy/AdvReac Type Severity Reaction Status Date / Time codeine Allergy ALGY-Swell Verified 09/14/25 09:04 Lip/Tongue/Throat diphenhydramine (From Allergy ADR-Agitate Verified 09/14/25 09:04 Benadryl) d Penicillins Allergy ALGY-Rash Verified 09/14/25 09:04 Sulfa (Sulfonamide Allergy ALGY-Rash Verified 09/14/25 09:04 Antibiotics) Current Medications Generic Name Dose Route Start Last Admin Trade Name Freq PRN Reason Stop Dose Admin Sodium Chloride 1,000 mls @ 30 mls/hr 09/23/25 09:15 09/23/25 09:37 Sodium Chloride 0.9% IV 09/24/25 09:14 30 mls/hr .Q24H MILEY Administration PFSH Anesthesia Medical History (Updated 09/14/25 @ 10:07 by Ashish Menchaca MD) Nonischemic congestive cardiomyopathy New onset of congestive heart failure Acute kidney injury HTN (hypertension) Abnormal cardiovascular stress test Sepsis Tajrp-uh-lwetsyc kidney injury Pneumonia Anemia Acute renal failure Duodenitis Esophagitis Esophageal thickening Nephrolithiasis Depression Diabetic neuropathy Diabetes Surgical History H/O lithotripsy Family History Mother Leukemia Father CAD (coronary artery disease) Kidney stones Chronic kidney disease (CKD) Social History Smoking and tobacco/nicotine status: never used tobacco/nicotine Alcohol intake: never Substance/Drug Use: never Lives independently: Yes Household members: significant other Marital status: / Current occupational status: retired Data Anesthesia Cardiac Studies: Echocardiogram 03/24/25 Sestamibi Stress Test (Cardiology) 03/28/24
[2025-09-23] MEDS: ondansetron 2 mg/ML SDV 2 mL 4 MG IVP (11:07)
--- NOTE | 2025-09-23 11:15 | ANES.PROC ---
Anesthesia Procedures Procedure/Date: 09/23/25 Left interscalene nerve block for postoperative pain control Nerve Block ^: Nerve Block 1: Main Anesthesia: other (100 mcg fentanyl) Time Out Performed: Yes Consent: requested by attending/covering physician and from patient Laterality: Left Nerve block location: interscalene Anesthesia monitors applied: pulse oximetry, EKG, BP cuff and oxygen Nerve block position: supine Anesthetic Used: ropivicaine 0.5% Amount of anesthesia used (mL): 30 Ultrasound used to: recognize landmarks Nerve Stimulator Used?: Yes Interscalene/Femoral BLK: other needle (pjunk 4inch) Injection: neg aspiration of heme Patient Tolerated Procedure: well Complications: none
--- NOTE | 2025-09-23 11:30 | P.OP_ITS ---
Operative Report Date of procedure: September 23, 2025 Surgeon: Ashish Menchaca MD Procedure: Preoperative diagnosis: Frozen shoulder secondary to rotator cuff repair Postoperative diagnosis: Same Procedure: Left shoulder manipulation under general anesthetic Surgeon: Ashish Menchaca MD Anesthesia: General With preoperative scalene block Indications: Corinne is a 65-year-old white female who had a left shoulder arthroscopy with rotator cuff repair back in February of this year. Since that time she has been very slowly regaining motion and strength. It appears in clinic that she may have a frozen shoulder with adhesions within the shoulder and therefore she was offered a manipulation at this time. All risk benefits treatment alternatives discussed with her and she is agreeable to this at this time. Procedure: After obtaining her consent patient had preoperative scalene block administered to her left upper extremity. The patient was then taken to the operating room on her transport gurney and left on this. General anesthetic was administered to her. Once good anesthesia was achieved patient's left shoulder was manipulated in multiple directions reaching maximum motion in all directions. There is minimal signs or sounds of breaking down of adhesions. Tissues were tight and they stretched out easily. Otherwise no other gross abnormalities at this time. No complications. Once completed patient was aw akened transferred recovery in stable condition
--- NOTE | 2025-09-23 12:59 | ANE.PACU2 ---
Inpatient post-anesthesia follow up: Airway intact: Yes Vital signs: Temperature 97.7 F Pulse Rate 99 Respiratory Rate 18 Blood Pressure 172/88 Pulse Oximetry 98 Oxygen Delivery Me thod Room Air Oxygen Flow Rate 2 Fraction of Inspir ed Oxygen Hydration adequate: Yes Nausea and vomiting: No Pain level: 1 Mental status: Baseline
== END 2025-09-23 12:59 | disposition home or self-care (01) ==
PROVIDERS: PCP Family Medicine; Visit Provider Orthopaedic Surgery
PROC: (CPT 23700; principal; 2025-09-23 11:15)
DX: M75.02 Adhesive capsulitis of left shoulder (principal); E11.22 Type 2 diabetes mellitus with diabetic chronic kidney disease; I12.9 Hypertensive chronic kidney disease with stage 1 through stage 4 chronic kidney disease, or unspecified chronic kidney disease; N18.30 Chronic kidney disease, stage 3 unspecified; K21.9 Gastro-esophageal reflux disease without esophagitis; Z79.84 Long term (current) use of oral hypoglycemic drugs; D64.9 Anemia, unspecified; F32.A Depression, unspecified; E11.40 Type 2 diabetes mellitus with diabetic neuropathy, unspecified
CPT/HCPCS: 23700; 64415; 36416; 82962; J2405; J2704; J3010; J7030

== ENCOUNTER 2025-09-28 08:42 | Outpatient (RCR) | payer MEDICARE, SELFPAY | END 2025-10-04 23:59 | disposition home or self-care (01) | LOC: SPT 08:42 | PROVIDERS: PCP Family Medicine; Visit Provider Orthopaedic Surgery | DX: M25.512 Pain in left shoulder (principal) | CPT/HCPCS: 97110; 97161 ==

== ENCOUNTER 2025-10-05 05:00 | Outpatient (RCR) | payer MEDICARE, SELFPAY | END 2025-11-04 23:59 | disposition home or self-care (01) | LOC: SPT 05:00 | PROVIDERS: PCP Family Medicine; Visit Provider Orthopaedic Surgery | DX: M25.512 Pain in left shoulder (principal) | CPT/HCPCS: 97110 ==

== ENCOUNTER → 2025-10-08 14:55 | Outpatient (BNVA) | payer MEDICARE, SELFPAY | PROVIDERS: PCP Family Medicine; Visit Provider Orthopaedic Surgery | DX: M75.02 Adhesive capsulitis of left shoulder (principal) | CPT/HCPCS: 99024 ==

== ENCOUNTER → 2025-10-13 09:51 | Outpatient (BNVA) | payer MEDICARE, SELFPAY | PROVIDERS: PCP Family Medicine; Visit Provider Nurse Practitioner Family | DX: I42.8 Other cardiomyopathies (principal); I13.0 Hypertensive heart and chronic kidney disease with heart failure and stage 1 through stage 4 chronic kidney disease, or unspecified chronic kidney disease; E11.22 Type 2 diabetes mellitus with diabetic chronic kidney disease; N18.30 Chronic kidney disease, stage 3 unspecified; I50.9 Heart failure, unspecified; Z79.84 Long term (current) use of oral hypoglycemic drugs | CPT/HCPCS: 99214 ==

== ENCOUNTER 2025-10-22 08:46 | Outpatient (CLI) | payer MEDICARE, SELFPAY ==
--- NOTE | 2025-10-22 08:52 | MM_ITS ---
WS: [id number] BILATERAL SCREENING DIGITAL TOMOSYNTHESIS MAMMOGRAM WITH CAD HISTORY: SCREENING COMPARISON: 10/21/2024, 10/24/2022, 08/31/2020 Bilateral CC and MLO views with tomosynthesis and synthetic mammography submitted. Computer aided detection analyzed. Breast composition: There are scattered areas of fibroglandular density. No suspicious masses, microcalcifications or architectural distortion. Benign calcifications scattered within each breast. There is a focal asymmetry in the upper outer quadrant of the LEFT breast which has been present on prior studies. MM/MM [facility] tomosynthesis [id number] IMPRESSION: BI-RADS: 2 - Benign. FOLLOW UP: 1 Year Follow-up
== END 2025-10-22 08:47 | disposition home or self-care (01) ==
LOC: RAD 08:46
PROVIDERS: PCP Family Medicine; Visit Provider Family Medicine
DX: Z12.31 Encounter for screening mammogram for malignant neoplasm of breast (principal); R92.323 Mammographic fibroglandular density, bilateral breasts; R92.1 Mammographic calcification found on diagnostic imaging of breast; N64.89 Other specified disorders of breast
CPT/HCPCS: 77063; 77067